=== PATIENT | male | born 1950 | race Caucasian/White ===

== ENCOUNTER 2018-02-18 16:37 | Emergency (ER) | payer BC, MEDICARE ==
[2018-02-18] MEDS ORDERED: SODIUM CHLORIDE 0.9% 1,000 ML IV STA (16:54)
[2018-02-18] MEDS ORDERED: SODIUM CHLORIDE 0.9% 500 ML IV STA (16:54)
[2018-02-18] MEDS ORDERED: NITROGLYCERIN SL TABS 0.4 MG TAB SUBLINGUAL STA ×3 (16:54)
[2018-02-18] MEDS ORDERED: ASPIRIN 81 MG PO STA (16:54)
[2018-02-18] MEDS ORDERED: ONDANSETRON 4 MG/2 ML VIAL IVP STA (16:55)
[2018-02-18] MEDS ORDERED: FAMOTIDINE 20 MG/2 ML VIAL IV STA (16:55)
--- NOTE | 2018-02-18 16:58 | ED ---
General Adult HPI - General Chief complaint: Chest Pain Stated complaint: Vomiting Time Seen by Provider: 02/18/18 16:45 Source: patient, family, RN notes reviewed Mode of arrival: ambulatory Limitations: no limitations - History of Present Illness Initial comments: Patient is a pleasant 67-year-old male presenting to the emergency Department with chest and abdominal discomfort. Symptoms have been occurring for months. Patient was in the hospital recently at [facility] and then transferred to [place]. Patient did have heart catheterization showing 2 areas of concern, one up to 90% blocked. There is also computed tomography scan done showing concern for mesenteric artery ischemia. Patient was in the hospital and [place] for only 3 days and then was discharged. Patient is having continued worsening symptoms. Decreased appetite. Patient is now vomiting. Patient has lost 7 pounds in the past week. Family states further treatment there was limited because there were waiting for a specific machine to help with the procedure as well as the fact that they wanted scopes done to rule out cancer. Patient is not on any blood thinners at this time. - Related Data Home Medications Medication Instructions Recorded Confirmed Aspirin 325 mg PO DAILY 02/18/18 02/18/18 Atorvastatin Calcium [Lipitor] 20 mg PO DAILY 02/18/18 02/18/18 Hydrocodone/Acetaminophen [Sebring 1 tab PO TID 02/18/18 02/18/18 5-325] Hyoscyamine Sulfate [Levsin] 0.125 mg PO DAILY 02/18/18 02/18/18 Lansoprazole [Prevacid] 30 mg PO DAILY 02/18/18 02/18/18 Lisinopril-Hctz 10-12.5 mg 1 tab PO DAILY 02/18/18 02/18/18 [Zestoretic 10-12.5] Metoprolol Tartrate 25 mg PO BID 02/18/18 02/18/18 Nicotine 21Mg/24Hr Patch [Habitrol 1 patch TRANSDERM DAILY 02/18/18 02/18/18 21Mg/24Hr Patch] Allergies Allergy/AdvReac Type Severity Reaction Status Date / Time No Known Allergies Allergy Verified 02/18/18 17:21 Review of Systems ROS Statement: Those systems with pertinent positive or pertinent negative responses have been documented in the HPI. ROS Other: All systems not noted in ROS Statement are negative. 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 History of Any Multi-Drug Resistant Organisms: None Reported Past Surgical History: Orthopedic Surgery Additional Past Surgical History / Comment(s): kerri shoulder,lt foot Past Psychological History: No Psychological Hx Reported Smoking Status: Current every day smoker Past Alcohol Use History: None Reported Past Drug Use History: None Reported General Exam Limitations: no limitations General appearance: alert Head exam: Present: atraumatic Eye exam: Present: normal appearance, PERRL ENT exam: Present: normal oropharynx Neck exam: Present: normal inspection Respiratory exam: Present: normal lung sounds bilaterally. Absent: chest wall tenderness Cardiovascular Exam: Present: regular rate, normal rhythm GI/Abdominal exam: Present: soft, tenderness (Moderate epigastric tenderness with mild guarding), normal bowel sounds. Absent: distended, pulsatile mass Extremities exam: Present: normal inspection. Absent: pedal edema, calf tenderness Neurological exam: Present: alert Psychiatric exam: Present: normal affect, normal mood Skin exam: Present: normal color Course Vital Signs 02/18/18 02/18/18 02/18/18 16:39 17:25 19:18 Temperature 98.3 F 98.8 F Pulse Rate 85 68 69 Respiratory 20 18 18 Rate Blood Pressure 110/76 133/76 116/65 O2 Sat by Pulse 97 Oximetry - Reevaluation(s) Reevaluation #1: 02/18/18 18:15 Cardiology has been paged. We have also attempted to contact [facility] for records. 02/18/18 18:37 Case was discussed with Dr. Linda who recommends admission to ICU and heparin and IV fluids. He is agreeable to vascular consult and recommends Dr. Anthony. 02/18/18 18:50 Case was earlier discussed with Dr. Beauchamp, who will admit for hospital call. Case was discussed with Dr. Anthony who agrees with heparin and will consult. He also recommends surgical consult. 10/10/18 19:31 Case was discussed with Dr. Menjivar who recommends transfer to [facility]. She is concerned the patient may need intestinal loop bypass graft. Case was discussed with patient and family who are agreeable. Case was discussed with Dr. Hodges at [facility], who will accept transfer. EKG Findings - EKG Comments: EKG Findings:: Normal sinus rhythm 68. NE 134. QRS 102. QT 414. QTC 440. Left axis. Incomplete right bundle-branch block. Nonspecific ST-T. Medical Decision Making - Lab Data Result diagrams: 02/18/18 17:05 02/18/18 17:05 Lab Results 02/18/18 02/18/18 02/18/18 Range/Units 17:05 17:05 17:05 WBC 29.2 H (3.8-10.6) k/uL RBC 4.90 (4.30-5.90) m/uL Hgb 15.0 (13.0-17.5) gm/dL Hct 45.1 (39.0-53.0) % MCV 92.1 (80.0-100.0) fL MCH 30.6 (25.0-35.0) pg MCHC 33.2 (31.0-37.0) g/dL RDW 13.4 (11.5-15.5) % Plt Count 309 (150-450) k/uL Neutrophils % 92 % Lymphocytes % 4 % Monocytes % 3 % Eosinophils % 1 % Basophils % 0 % Neutrophils # 26.8 H (1.3-7.7) k/uL Lymphocytes # 1.1 (1.0-4.8) k/uL Monocytes # 0.9 (0-1.0) k/uL Eosinophils # 0.3 (0-0.7) k/uL Basophils # 0.0 (0-0.2) k/uL PT (9.0-12.0) sec INR (<1.2) APTT (22.0-30.0) sec Sodium 137 (137-145) mmol/L Potassium 4.4 (3.5-5.1) mmol/L Chloride 101 (98-107) mmol/L Carbon Dioxide 19 L (22-30) mmol/L Anion Gap 17 mmol/L BUN 44 H (9-20) mg/dL Creatinine 1.70 H (0.66-1.25) mg/dL Est GFR (CKD-EPI)AfAm 47 (>60 ml/min/1.73 sqM) Est GFR (CKD-EPI)NonAf 41 (>60 ml/min/1.73 sqM) Glucose 159 H (74-99) mg/dL Plasma Lactic Acid Dwaine (0.7-2.0) mmol/L Calcium 10.4 H (8.4-10.2) mg/dL Magnesium 2.2 (1.6-2.3) mg/dL Total Bilirubin 0.5 (0.2-1.3) mg/dL AST 174 H (17-59) U/L ALT 45 (21-72) U/L Alkaline Phosphatase 131 H (38-126) U/L Total Creatine Kinase 869 H (55-170) U/L CK-MB (CK-2) 115.0 H (0.0-2.4) ng/mL CK-MB (CK-2) Rel Index 13.2 Troponin I 37.500 H* (0.000-0.034) ng/mL Total Protein 7.3 (6.3-8.2) g/dL Albumin 4.4 (3.5-5.0) g/dL Amylase 76 (30-110) U/L Lipase 61 (23-300) U/L 02/18/18 02/18/18 Range/Units 17:05 17:05 WBC (3.8-10.6) k/uL RBC (4.30-5.90) m/uL Hgb (13.0-17.5) gm/dL Hct (39.0-53.0) % MCV (80.0-100.0) fL MCH (25.0-35.0) pg MCHC (31.0-37.0) g/dL RDW (11.5-15.5) % Plt Count (150-450) k/uL Neutrophils % % Lymphocytes % % Monocytes % % Eosinophils % % Basophils % % Neutrophils # (1.3-7.7) k/uL Lymphocytes # (1.0-4.8) k/uL Monocytes # (0-1.0) k/uL Eosinophils # (0-0.7) k/uL Basophils # (0-0.2) k/uL PT 12.0 (9.0-12.0) sec INR 1.3 H (<1.2) APTT 22.3 (22.0-30.0) sec Sodium (137-145) mmol/L Potassium (3.5-5.1) mmol/L Chloride (98-107) mmol/L Carbon Dioxide (22-30) mmol/L Anion Gap mmol/L BUN (9-20) mg/dL Creatinine (0.66-1.25) mg/dL Est GFR (CKD-EPI)AfAm (>60 ml/min/1.73 sqM) Est GFR (CKD-EPI)NonAf (>60 ml/min/1.73 sqM) Glucose (74-99) mg/dL Plasma Lactic Acid Dwaine 5.1 H* (0.7-2.0) mmol/L Calcium (8.4-10.2) mg/dL Magnesium (1.6-2.3) mg/dL Total Bilirubin (0.2-1.3) mg/dL AST (17-59) U/L ALT (21-72) U/L Alkaline Phosphatase (38-126) U/L Total Creatine Kinase (55-170) U/L CK-MB (CK-2) (0.0-2.4) ng/mL CK-MB (CK-2) Rel Index Troponin I (0.000-0.034) ng/mL Total Protein (6.3-8.2) g/dL Albumin (3.5-5.0) g/dL Amylase (30-110) U/L Lipase (23-300) U/L Critical Care Time Critical Care Time: Yes Total Critical Care Time: 36 Disposition Clinical Impression: Superior mesenteric artery stenosis, NSTEMI (non-ST elevated myocardial infarction) Disposition: HOME SELF-CARE Condition: Serious Is patient prescribed a controlled substance at d/c from ED?: No Referrals: Hari Zambrano MD [Primary Care Provider] - 1-2 days Time of Disposition: 19:33
[2018-02-18 17:23] LABS: Basophils % (A) 0 %; Eosinophils # (A) 0.3 k/uL (0-0.7); Eosinophils % (A) 1 %; HCT 45.1 % (39.0-53.0); Lymphocytes # (A) 1.1 k/uL (1.0-4.8); Lymphocytes % (A) 4 %; MCH 30.6 pg (25.0-35.0); MCHC 33.2 g/dL (31.0-37.0); MCV 92.1 fL (80.0-100.0); Mean Platelet Volume 8.5; Monocytes # (A) 0.9 k/uL (0-1.0); Monocytes % (A) 3 %; Neutrophils # (A) 26.8 k/uL (1.3-7.7); Neutrophils % (A) 92 %; Platelet Count 309 k/uL (150-450); RDW 13.4 % (11.5-15.5); WBC 29.2 k/uL (3.8-10.6)
[2018-02-18 17:30] VITALS: RESP 18
[2018-02-18 17:33] LABS: Albumin 4.4 g/dL (3.5-5.0); Calcium 10.4 mg/dL (8.4-10.2); Magnesium 2.2 mg/dL (1.6-2.3); Potassium 4.4 mmol/L (3.5-5.1); Total Bilirubin 0.5 mg/dL (0.2-1.3); Total Protein 7.3 g/dL (6.3-8.2)
[2018-02-18 17:34] LABS: INR 1.3 (<1.2); Partial Thromboplastin Time 22.3 sec (22.0-30.0)
[2018-02-18 18:01] LABS: Troponin I 37.5 ng/mL (0.000-0.034)
--- NOTE | 2018-02-18 18:01 | XR ---
EXAMINATION TYPE: XR abdomen 1V DATE OF EXAM: 02/18/2018 COMPARISON: NONE HISTORY: Pain TECHNIQUE: Single view FINDINGS: Upright view shows no sign of intestinal obstruction or pneumoperitoneum. Fecal pattern is normal. Abdominal aorta is atheromatous. There are no definite renal calcifications. Lung bases appea r clear. IMPRESSION: Nonacute abdomen.
[2018-02-18] MEDS ORDERED: HEPARIN SODIUM,PORCINE 5,000 UNIT/ML 1 ML VIAL IV ONE (18:14)
[2018-02-18] MEDS ORDERED: HEPARIN SODIUM,PORCINE 5,000 UNIT/ML 1 ML VIAL IV PRN (18:14)
[2018-02-18] MEDS ORDERED: HEPARIN SOD,PORK IN 0.45% NACL 25,000 UNIT in 0.45% NACL 1 500ML.BAG IV SCH (18:15)
--- NOTE | 2018-02-18 18:19 | XR ---
EXAMINATION TYPE: XR chest 2V DATE OF EXAM: 02/18/2018 COMPARISON: NONE HISTORY: Vomiting and chest pain TECHNIQUE: Frontal and lateral views of the chest are obtained. FINDINGS: Heart and mediastinum are normal. Lungs are clear. Diaphragm is normal. Bony thorax appear s normal. There are chest leads. IMPRESSION: Normal chest.
[2018-02-18 20:36] VITALS: BP 108/65; PULSE 74; TEMP 98.5
== END 2018-02-18 20:37 | disposition home or self-care (01) ==
LOC: EC 16:37
DX: I21.4 Non-ST elevation (NSTEMI) myocardial infarction (principal); K55.1 Chronic vascular disorders of intestine; I25.10 Atherosclerotic heart disease of native coronary artery without angina pectoris; F17.200 Nicotine dependence, unspecified, uncomplicated; Z79.82 Long term (current) use of aspirin; Z79.899 Other long term (current) drug therapy
CPT/HCPCS: 36415; 93005; 80053; 82150; 82550; 82553; 83605; 83690; 83735; 84484; 85025; 85610; 85730; 71046; 74018; 99285; 96365; 96375 ×2; 96376; 96361 ×2; J1644 ×2; J2405

== ENCOUNTER → 2018-04-14 | Outpatient (CLI) | payer BC, MEDICARE ==
[2018-04-14 11:48] LABS: Calcium 9.9 mg/dL (8.4-10.2); Magnesium 1.8 mg/dL (1.6-2.3); Potassium 4.4 mmol/L (3.5-5.1); Total Bilirubin 0.4 mg/dL (0.2-1.3); Total Protein 6.7 g/dL (6.3-8.2)
[2018-04-14 11:56] LABS: INR 1.3 (<1.2); Partial Thromboplastin Time 23.1 sec (22.0-30.0); Prothrombin Time 12.4 sec (9.0-12.0)
--- NOTE | 2018-04-14 12:24 | P.PN ---
Progress Note - Text Progress Note Date: 04/14/18 5 meter walk test completed 04/14/18: #1 3.90 sec #2 4.06 sec #3 3.53 sec
[2018-04-14 12:35] LABS: Appearance,Urine Clear (Clear); Bilirubin,Urine Negative (Negative); Blood,Urine Negative (Negative); Color,Urine Light Yellow; Glucose,Urine (UA) Negative (Negative); Ketones,Urine Negative (Negative); Leukocyte Esterase,Urine Negative (Negative); Nitrite,Urine Negative (Negative); PH, Urine 5.5 (5.0-8.0); Protein,Urine Negative (Negative); Specific Gravity,Urine 1.005 (1.001-1.035); Urobilinogen,Urine <2.0 mg/dL (<2.0)
[2018-04-14 13:07] LABS: HCT 41.7 % (39.0-53.0); HGB 13.5 gm/dL (13.0-17.5); MCH 31.9 pg (25.0-35.0); MCHC 32.4 g/dL (31.0-37.0); Mean Platelet Volume 8.6; Platelet Count 196 k/uL (150-450); RBC 4.23 m/uL (4.30-5.90); RDW 14.3 % (11.5-15.5)
[2018-04-14 13:11] LABS: MCV 98.4 fL (80.0-100.0)
--- NOTE | 2018-04-14 15:27 | XR ---
EXAMINATION TYPE: XR chest 2V DATE OF EXAM: 04/14/2018 COMPARISON: Prior chest x-ray 02/18/2018 HISTORY: Preop for coronary artery bypass graft TECHNIQUE: Frontal and lateral views of the chest are obtained. FINDINGS: There is no focal air space opacity, pleural effusion, or pneumothorax seen. The cardiac silhouette size is within normal limits. Prominent lung volume may be indicative of underlying COPD. The osseous structures are intact. IMPRESSION: No acute cardiopulmonary process.
[2018-04-14 19:41] LABS: Hepatitis A Antibody IgM Non-Reactive (Non-Reactive); Hepatitis B Core IgM Non-Reactive (Non-Reactive)
[2018-04-14 20:48] LABS: Hemoglobin A1C 5.3 % (4.0-6.0)
== END | disposition home or self-care (01) ==
LOC: LABPAT 10:24
PROVIDERS: ATTEND Thoracic Surgery (Cardiothoracic Vascular Surgery)
DX: Z01.810 Encounter for preprocedural cardiovascular examination (principal)
CPT/HCPCS: 36415; 71046; 80053; 80061; 80074; 81003; 83036; 83735; 84443; 85027; 85610; 85730; 87070; 87086; 93005

== ENCOUNTER 2018-04-20 05:29 | Inpatient (IN) | payer BC, MEDICARE ==
[~2018-04-20 05:29] MED LIST: ALBUMIN HUMAN 25% 50 ML IV ONE; ALBUMIN HUMAN 5% 500 ML IVPB ONE; ASPIRIN 325 MG TAB PO ONE; ATORVASTATIN 10 MG TAB PO ONE; CALCIUM CHLORIDE 100 MG/ML 10 ML SYRINGE IV ONE; CHLORHEXIDINE GLUCONATE 15 ML CUP MUCOUS MEM ONE; CLEVIDIPINE BUTYRATE 25 MG in EMPTY BAG 1 BAG IV ONE; DEXTROSE 5% IN WATER 1,000 ML with POTASSIUM CHLORIDE 110 MEQ, MAGNESIUM SULFATE 16 MEQ... IV ONE; DEXTROSE 5% IN WATER 1,000 ML with POTASSIUM CHLORIDE 25 MEQ, SODIUM CHLORIDE 2.5MEQ/ML... IRRIGATION ONE; HEPARIN SODIUM 1,000 UN/ML (10ML VL) IV ONE; HEPARIN SODIUM,PORCINE 5,000 UNIT in SODIUM CHLORIDE 0.9% 500 ML 500 ML IV ONE; INSULIN REGULAR 100 UNIT in SODIUM CHLORIDE 0.9% 100 ML IV ONE; LACTATED RINGERS 1,000 ML IV ONE; MAGNESIUM SULFATE MG 500 MG/ML IV ONE; MANNITOL 25% 12.5 GM/50 ML VIAL IV ONE; METOPROLOL TARTRATE 12.5 MG TAB PO ONE; NITROGLYCERIN SL TABS 0.4 MG TAB SUBLINGUAL ONE; NITROGLYCERIN-D5W PMX 25 MG/250 ML BTL IV ONE; NITROGLYCERIN-D5W PMX 50 MG in DEXTROSE/WATER 1 250ML.BAG IV ONE; NOREPINEPHRINE 4 MG in SODIUM CHLORIDE 0.9% 250 ML IV ONE; PAPAVERINE 360 MG in SODIUM CHLORIDE 0.9% 90 ML IV ONE; PHENYLEPHRINE 40 MG in SODIUM CHLORIDE 0.9% 250 ML IV ONE; PHENYLEPHRINE-0.9% NACL SYG 1 MG/10 ML SYRINGE IV ONE; PROPOFOL 1,000 MG/100 ML VIAL IV ONE; PROTAMINE SULFATE 10 MG/ML 25 ML VIAL IV ONE; PROTAMINE SULFATE 250 MG in EMPTY BAG 1 BAG IV ONE; SODIUM BICARB 8.4% 50 ML SYR (1 MEQ/ML) IV ONE; SODIUM CHLORIDE 0.9% 1,000 ML IV ONE; TRANEXAMIC ACID 2,000 MG in SODIUM CHLORIDE 0.9% 180 ML IV ONE; ceFAZolin 2,000 MG in SODIUM CHLORIDE 0.9% 30 ML IVPB ONE
[2018-04-20] MEDS ORDERED: ALBUMIN HUMAN 5% 500 ML VIAL IVPB ONE (08:00)
[2018-04-20] MEDS ORDERED: MAGNESIUM SULFATE 4 MEQ/ML 10ML VIAL ONE (08:00)
[2018-04-20] MEDS ORDERED: PROPOFOL 10 MG/ML 20 ML VIAL IV ONE (08:00)
[2018-04-20] MEDS ORDERED: PHENYLEPHRINE-0.9% NACL SYG 1 MG/10 ML SYRINGE ONE (08:00)
[2018-04-20] MEDS ORDERED: fentaNYL (PF) 50 MCG/ML 50 ML VIAL ONE (08:00)
[2018-04-20] MEDS ORDERED: LIDOCAINE 2% SYG (PF) 100 MG/5 ML ONE (08:00)
[2018-04-20] MEDS ORDERED: VECURONIUM 10 MG VIAL IV ONE (08:00)
[2018-04-20] MEDS ORDERED: PROTAMINE SULFATE 10 MG/ML 25 ML VIAL IV ONE (08:00)
[2018-04-20] MEDS ORDERED: TRANEXAMIC ACID 1,000 MG/10 ML VIAL ONE (08:00)
[2018-04-20] MEDS ORDERED: SODIUM CHLORIDE 0.9% IRRIG 1,000 ML BTL IRRIGATION ONE (08:00)
[2018-04-20] MEDS ORDERED: fentaNYL (PF) 50 MCG/ML 2 ML AMP ONE (08:00)
[2018-04-20] MEDS ORDERED: ELECTROLYTE-R (PH 7.4) 1,000 ML IV.SOLN IV ONE (08:00)
[2018-04-20] MEDS ORDERED: HEPARIN SODIUM,PORCINE 10,000 UNIT/ML 1 ML VIAL ONE (08:00)
[2018-04-20] MEDS ORDERED: ceFAZolin 1,000 MG VIAL ONE (08:00)
[2018-04-20] MEDS ORDERED: MIDAZOLAM 2 MG/2 ML VIAL ONE (08:00)
[2018-04-20] MEDS ORDERED: SODIUM CHLORIDE 0.9% 250 ML BAG ONE (08:00)
[2018-04-20] MEDS ORDERED: EPINEPHrine 10 ML SYRINGE (0.1 MG/ML) ONE (08:00)
[2018-04-20 08:32] LABS: ABG Base Excess -2.1 mmol/L; ABG HCO3 23 mmol/L (21-25); ABG Oxygen Saturation 99.7 % (94-97); ABG PCO2 40 mmHg (35-45); ABG PH 7.37 (7.35-7.45); ABG PO2 372 mmHg (83-108); ABG Sodium Whole Blood 145 mmol/L (135-146); ABG TCO2 24 mmol/L (19-24)
[2018-04-20 10:15] LABS: ABG Base Excess -3.6 mmol/L; ABG HCO3 23 mmol/L (21-25); ABG Oxygen Saturation 99.1 % (94-97); ABG PCO2 45 mmHg (35-45); ABG PH 7.31 (7.35-7.45); ABG PO2 189 mmHg (83-108); ABG Potassium Whole Blood 4.5 mmol/L (3.4-4.5); ABG Sodium Whole Blood 144 mmol/L (135-146); ABG TCO2 24 mmol/L (19-24)
[2018-04-20 11:03] LABS: ABG Base Excess -0.1 mmol/L; ABG HCO3 24 mmol/L (21-25); ABG PCO2 37 mmHg (35-45); ABG PH 7.43 (7.35-7.45); ABG Potassium Whole Blood 5.2 mmol/L (3.4-4.5); ABG Sodium Whole Blood 139 mmol/L (135-146); ABG TCO2 25 mmol/L (19-24)
[2018-04-20] MEDS ORDERED: THROMBIN (BOVINE) 5,000 UNIT VIAL MISCELLANE ONE ×2 (11:28)
[2018-04-20] MEDS ORDERED: GELATIN SPONGE,ABSORB (LARGE) 1 EACH SPONGE MISCELLANE ONE (11:30)
[2018-04-20 11:35] LABS: ABG HCO3 23 mmol/L (21-25); ABG Oxygen Saturation 99.8 % (94-97); ABG PCO2 38 mmHg (35-45); ABG PH 7.39 (7.35-7.45); ABG PO2 397 mmHg (83-108); ABG Potassium Whole Blood 5.2 mmol/L (3.4-4.5); ABG Sodium Whole Blood 140 mmol/L (135-146); ABG TCO2 24 mmol/L (19-24)
[2018-04-20 12:07] LABS: ABG HCO3 24 mmol/L (21-25); ABG Oxygen Saturation 99.7 % (94-97); ABG PCO2 40 mmHg (35-45); ABG PH 7.38 (7.35-7.45); ABG PO2 404 mmHg (83-108); ABG Potassium Whole Blood 4.3 mmol/L (3.4-4.5); ABG Sodium Whole Blood 143 mmol/L (135-146); ABG TCO2 25 mmol/L (19-24)
[2018-04-20] MEDS ORDERED: IPRATROPIUM-ALBUTEROL 3 ML NEB INHALATION PRN (13:37)
[2018-04-20] MEDS ORDERED: ALBUMIN HUMAN 5% 250 ML in EMPTY BAG 1 BAG IVPB PRN (13:37)
[2018-04-20] MEDS ORDERED: BENZOCAINE/MENTHOL LOZENG 1 EACH LOZENGE MUCOUS MEM PRN (13:37)
[2018-04-20] MEDS ORDERED: METOCLOPRAMIDE 5 MG/ML 2 ML VIAL IVP PRN (13:37)
[2018-04-20] MEDS ORDERED: AMIODARONE 450 MG in DEXTROSE 5% IN WATER 250 ML IV PRN ×2 (13:37)
[2018-04-20] MEDS ORDERED: INSULIN REGULAR 100 UNIT in SODIUM CHLORIDE 0.9% 100 ML IV SCH (13:37)
[2018-04-20] MEDS ORDERED: Phosphorus Replacement Protoco 1 EACH MISC MISCELLANE PRN (13:37)
[2018-04-20] MEDS ORDERED: Magnesium Replacement Protocol 1 EACH MISC MISCELLANE PRN (13:37)
[2018-04-20] MEDS ORDERED: CALCIUM CHLORIDE 1,000 MG in SODIUM CHLORIDE 0.9% 100 ML IV PRN (13:37)
[2018-04-20] MEDS ORDERED: PROPOFOL 1,000 MG in EMPTY BAG 1 BAG IV SCH (13:37)
[2018-04-20] MEDS ORDERED: NITROGLYCERIN-D5W PMX 50 MG in DEXTROSE/WATER 1 250ML.BAG IV SCH (13:37)
[2018-04-20] MEDS ORDERED: Potassium Replacement Protocol 1 EACH MISC MISCELLANE PRN (13:37)
[2018-04-20] MEDS ORDERED: ONDANSETRON 4 MG/2 ML VIAL IVP PRN (13:37)
[2018-04-20] MEDS ORDERED: DEXTROSE 5% IN WATER 100 ML with AMIODARONE 150 MG IV PRN (13:37)
[2018-04-20 13:53] LABS: ABG Potassium Whole Blood 4.2 mmol/L (3.4-4.5)
[2018-04-20 13:54] LABS: ABG PO2 >420 mmHg (83-108)
[2018-04-20] MEDS: LACTATED RINGERS 1,000 ML IV SCH (14:00)
[2018-04-20] MEDS: CLEVIDIPINE BUTYRATE 25 MG in EMPTY BAG 1 BAG IV SCH ×2 (14:15→21:46)
[2018-04-20 14:19] LABS: Glucose,Whole Blood 76 mg/dL (75-99)
[2018-04-20 14:28] LABS: Basophils % (A) 0 %; Eosinophils # (A) 0.1 k/uL (0-0.7); Eosinophils % (A) 1 %; Lymphocytes # (A) 1.1 k/uL (1.0-4.8); Lymphocytes % (A) 14 %; MCH 32.3 pg (25.0-35.0); MCHC 32.9 g/dL (31.0-37.0); MCV 98.1 fL (80.0-100.0); Mean Platelet Volume 8.8; Monocytes # (A) 0.4 k/uL (0-1.0); Monocytes % (A) 5 %; Neutrophils # (A) 6.3 k/uL (1.3-7.7); Neutrophils % (A) 79 %; RBC 2.55 m/uL (4.30-5.90); RDW 14.5 % (11.5-15.5)
[2018-04-20 14:30] LABS: HGB 8.2 gm/dL (13.0-17.5)
[2018-04-20 14:35] LABS: INR 1.4 (<1.2); Partial Thromboplastin Time 32.5 sec (22.0-30.0); Prothrombin Time 14.6 sec (9.0-12.0)
--- NOTE | 2018-04-20 14:36 | XR ---
EXAMINATION TYPE: XR chest 1V portable DATE OF EXAM: 04/20/2018 COMPARISON: 04/14/2018 INDICATION: Postop cardiac surgery TECHNIQUE: Single frontal view of the chest is obtained. FINDINGS: The heart size is normal. The pulmonary vasculature is upper the upper limits of normal.. Some minimal subsegmental atelectasis may be within the right lung base. Some streak atelectasis may be at the left lung base. Bilateral chest tubes are present. Some minimal right pneumothorax at the apex may be present. [place]-Nick catheter is present with the tip in the region of the main pulmonary artery. Endotracheal t ube tip is above the john. Nasogastric tube transverses the thorax with tip in left upper quadrant of the abdomen. Epicardial leads appear to be present. IMPRESSION: 1. Suggestion of mild subsegmental atelectasis bilateral lung bases. 2. Lines and catheters discussed above. 3. Minimal medial right apical pneumothorax may be present. 4. Prominence of the pulmonary vascular markings is approaching volume overload
[2018-04-20 14:39] LABS: Ionized Calcium 5.4 mg/dL (4.5-5.3)
[2018-04-20 14:41] LABS: ALT 27 U/L (21-72); AST 34 U/L (17-59); Albumin 3.2 g/dL (3.5-5.0); Alkaline Phosphatase 67 U/L (38-126); Anion Gap 5 mmol/L; Blood Urea Nitrogen 14 mg/dL (9-20); Calcium 7.4 mg/dL (8.4-10.2); Carbon Dioxide 25 mmol/L (22-30); Chloride 113 mmol/L (98-107); Glucose 67 mg/dL (74-99); Magnesium 2.9 mg/dL (1.6-2.3); Potassium 4.5 mmol/L (3.5-5.1); Sodium 143 mmol/L (137-145); Total Bilirubin 0.3 mg/dL (0.2-1.3); Total Protein 4.8 g/dL (6.3-8.2)
[2018-04-20 14:43] LABS: ABG Base Excess -1.9 mmol/L; ABG HCO3 25 mmol/L (21-25); ABG Oxygen Saturation 99.8 % (94-97); ABG PCO2 56 mmHg (35-45); ABG PH 7.26 (7.35-7.45); ABG PO2 296 mmHg (83-108); ABG TCO2 27 mmol/L (19-24)
[2018-04-20 14:50] LABS: Platelet Count 72 k/uL (150-450)
[2018-04-20 14:51] LABS: Anisocytosis (M) Present; Poikilocytosis (M) Present
[2018-04-20 15:16] LABS: Glucose,Whole Blood 98 mg/dL (75-99)
--- NOTE | 2018-04-20 15:33 | P.CNPUL ---
History of Present Illness Consult date: 04/20/18 Requesting physician: Wesley Olmos Reason for consult: other (Status post CABG) Chief complaint: Status post CABG History of present illness: This is a 67-year-old white male presented back on 02/18/20182 hour ER with abdominal and chest discomfort. Apparently the patient has been complaining of these symptoms for [place] of time, and prior to this last ER evaluation, patient was seen in [facility] and transferred to [facility] and cardiac catheterization was done, and it showed significant coronary artery disease, there was also evidence of mesenteric artery ischemia. Patient was at [facility] for almost a week, and no significant intervention was done. On 2017, presented to our ER, and he was having mostly abdominal pain, decreased appetite, 7 pound weight loss, and arrangements were made for the patient to be transferred to [facility]. Patient underwent stenting of the superior mesenteric artery at [facility], and he was eventually seen by cardiothoracic surgery and while at [facility], and his previous cardiac catheterization was reviewed, patient was advised elective myocardial revascularization. Today the patient underwent three-vessel bypass surgery, postoperatively he was on mechanical ventilation, and this consult was initiated. Presently he is on tidal volume of 500, assist control rate of 14, FiO2 of 50%, and PEEP of 5. Chest x-ray was reviewed, ABG was reviewed, and I discussed his condition with his at bedside. Patient is presently sedated , on mechanical ventilation. Review of Systems ROS unobtainable: due to endotracheal tube Past Medical History Past Medical History: Coronary Artery Disease (CAD), Cancer, Hyperlipidemia, Hypertension, Skin Disorder Additional Past Medical History / Comment(s): hx. of mesenteric artery stenosis , hx. basal cell skin cancer nose several years ago-current small open area side of nose where was removed History of Any Multi-Drug Resistant Organisms: None Reported Past Surgical History: Heart Catheterization, Orthopedic Surgery Additional Past Surgical History / Comment(s): kerri shoulder,lt foot surgery, mesenteric artery stent placed 2017 @[facility] Past Anesthesia/Blood Transfusion Reactions: No Reported Reaction Smoking Status: Current every day smoker Medications and Allergies Home Medications Medication Instructions Recorded Confirmed Type Atorvastatin Calcium [Lipitor] 40 mg PO DAILY 02/18/18 04/20/18 History Metoprolol Tartrate 25 mg PO BID 02/18/18 04/20/18 History Clopidogrel [Plavix] 75 mg PO DAILY 04/14/18 04/20/18 History Multivitamin [Men's Multi-Vitamin] 1 tab PO DAILY 04/14/18 04/20/18 History Nitroglycerin Sl Tabs [Nitrostat] 0.4 mg SUBLINGUAL Q5M PRN 04/14/18 04/20/18 History Ondansetron [Zofran] 4 mg PO Q8HR PRN 04/14/18 04/20/18 History Pantoprazole Sodium [Protonix] 40 mg PO DAILY 04/14/18 04/20/18 History Mupirocin 2% Oint [Bactroban 2% 1 applic NASAL BID 04/17/18 04/20/18 History Oint] Aspirin [Adult Low Dose Aspirin EC] 324 mg PO DAILY 04/20/18 04/20/18 History Allergies Allergy/AdvReac Type Severity Reaction Status Date / Time No Known Allergies Allergy Verified 04/20/18 14:28 Physical Exam Vitals: Vital Signs Temp Pulse Resp BP BP Pulse Ox 04/20/18 06:01 97.5 F L 49 L 18 137/78 132/76 97 Intake and Output 04/20/18 04/20/18 04/20/18 06:59 14:59 22:59 Intake Total 2 Output Total 1500 Balance -1498 Intake: IV 2 Output: Urine 500 Estimated Blood Loss 1000 Physical Exam: Revealed a 67-year-old white male in no distress. On mechanical ventilation, endotracheal tube is intact. Head: Atraumatic, normocephalic. HEENT: PERRLA, EOMI, [Neck is supple.] [No neck masses.] [No thyromegaly.] [No JVD.] Moist mucous membranes. Chest: [Clear throughout, no crackles, no rhonchi, no wheezes.] Cardiac Exam: [Normal S1 and S2, no S3 gallop, no murmur.] Abdomen: [Soft, nontender, no megaly, no rebound, no guarding, normal bowel sounds.] Extremities: [No clubbing, no edema, no cyanosis.] Neurological Exam: [Cannot be assessed, patient is sedated. Psychiatric: Cannot be assessed. Skin: No rashes. Results - Laboratory Findings CBC and BMP: 04/20/18 13:58 04/20/18 13:58 ABG ABG pH 7.26 (7.35-7.45) L 04/20/18 14:40 ABG pCO2 56 mmHg (35-45) H 04/20/18 14:40 ABG pO2 296 mmHg (83-108) H 04/20/18 14:40 ABG O2 Saturation 99.8 % (94-97) H 04/20/18 14:40 PT/INR, D-dimer PT 14.6 sec (9.0-12.0) H 04/20/18 13:58 INR 1.4 (<1.2) H 04/20/18 13:58 Abnormal lab findings: Abnormal Labs 04/14/18 04/20/18 04/20/18 10:26 08:30 10:14 RBC Hgb Hct Plt Count PT INR APTT ABG pH 7.31 L ABG pCO2 ABG pO2 372 H 189 H ABG Total CO2 ABG O2 Saturation 99.7 H 99.1 H ABG Hematocrit 33 L ABG Potassium ABG Ionized Calcium ABG Glucose 137 H ABG Lactic Acid Hemoglobin 11.2 L 10.7 L Chloride Glucose Calcium Ionized Calcium Naima Magnesium Total Protein Albumin Arterial Blood Potassium Arterial Blood Glucose 137 H Crossmatch See Detail 04/20/18 04/20/18 04/20/18 11:02 11:33 12:05 RBC Hgb Hct Plt Count PT INR APTT ABG pH ABG pCO2 ABG pO2 >420 H 397 H 404 H ABG Total CO2 25 H 25 H ABG O2 Saturation 100.0 H 99.8 H 99.7 H ABG Hematocrit 22 L 22 L 22 L ABG Potassium 5.2 H 5.2 H ABG Ionized Calcium 3.8 L 4.0 L 4.1 L ABG Glucose 214 H 232 H 176 H ABG Lactic Acid 2.1 H 3.0 H* 3.7 H* Hemoglobin 7.0 L* 7.2 L 7.3 L Chloride Glucose Calcium Ionized Calcium Naima Magnesium Total Protein Albumin Arterial Blood Potassium 5.2 H 5.2 H Arterial Blood Glucose 214 H 232 H 176 H Crossmatch 04/20/18 04/20/18 04/20/18 13:58 13:58 13:58 RBC 2.55 L Hgb 8.2 L D Hct 25.0 L Plt Count 72 L D PT 14.6 H INR 1.4 H APTT 32.5 H ABG pH ABG pCO2 ABG pO2 ABG Total CO2 ABG O2 Saturation ABG Hematocrit ABG Potassium ABG Ionized Calcium ABG Glucose ABG Lactic Acid Hemoglobin Chloride 113 H Glucose 67 L Calcium 7.4 L Ionized Calcium Naima 5.4 H Magnesium 2.9 H Total Protein 4.8 L Albumin 3.2 L Arterial Blood Potassium Arterial Blood Glucose Crossmatch 04/20/18 14:40 RBC Hgb Hct Plt Count PT INR APTT ABG pH 7.26 L ABG pCO2 56 H ABG pO2 296 H ABG Total CO2 27 H ABG O2 Saturation 99.8 H ABG Hematocrit ABG Potassium ABG Ionized Calcium ABG Glucose ABG Lactic Acid Hemoglobin Chloride Glucose Calcium Ionized Calcium Naima Magnesium Total Protein Albumin Arterial Blood Potassium Arterial Blood Glucose Crossmatch - Diagnostic Findings Chest x-ray: image reviewed (Chest x-ray showed minimal subsegmental atelectasis at the bases, prominent pulmonary vasculature otherwise unremarkable.) Assessment and Plan Assessment: Impression: 1 status post CABG, three-vessel bypass surgery, postoperative day #0. 2 postoperative atelectasis, expected after surgery. 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 5 triple-vessel coronary artery disease. Recommendation: Discussed and updated his about his condition, adjusted his ventilator settings, plan to have a repeat ABG later this evening, will likely wean and extubate later this evening, all depending on his overall clinical progress. We'll continue to follow. Time with Patient: Greater than 30
[2018-04-20] MEDS: ceFAZolin IN SWFI 2 GM/20 ML SYRINGE IVP SCH ×2 (15:48→23:57)
[2018-04-20 15:59] LABS: Glucose,Whole Blood 142 mg/dL (75-99)
[2018-04-20] MEDS ORDERED: IPRATROPIUM-ALBUTEROL 3 ML NEB INHALATION SCH (16:00)
--- NOTE | 2018-04-20 16:03 | OP ---
OPERATIVE REPORT DATE OF THE OPERATION: 04/20/2018. ATTENDING SURGEON: Dr. Wesley Olmos. PREOPERATIVE DIAGNOSES: 1. Unstable angina. 2. Three vessel coronary artery disease. POSTOPERATIVE DIAGNOSES: 1. Unstable angina. 2. Three vessel coronary artery disease. PROCEDURE PERFORMED: 1. Coronary bypass grafting x3 with left internal mammary to left anterior descending artery. 2. Reverse saphenous vein graft off the aorta to the diagonal artery, the high diagonal artery and the posterior ventricular branch of the right coronary artery with endarterectomy of the posterior lateral branch of the RCA with vein patch angioplasty. 3. Clip ligation of the left atrial appendage with a #35 mm AtriClip. 4. Intraoperative GREGORY. ANESTHESIA: General anesthesia. BLOOD LOSS: 500 mL. SUMMARY: The patient was brought to the operating room, placed in the supine position. After administration of general tracheal anesthetic, placement of a [place]-Nick catheter, arterial line adequate IV access, Nagel catheter, patient carefully prepped and draped in normal sterile fashion using Betadine paint and sterile towels. Greater saphenous vein was harvested from the left lower extremity via endovascular vein harvesting technique. All branches were doubly tied and divided and the incisions closed in 2 layers. A midline incision in the chest made, sternum divided. Pericardium was opened. Heart size was relatively normal caliber. The aorta was a little bit thickened but soft. Left pleural space is opened. Left internal mammary artery harvested as a pedicle from the xiphoid to the left subclavian vein. It was of 2 mm quality with excellent flow. The patient was heparinized. ACT greater than 480. The aorta and vena cava were cannulated. Antegrade and retrograde cardioplegic catheters positioned in the ascending aorta and the coronary sinus. Upon giving the instructions to go on bypass, patient was reportedly placed on bypass. However, within 30 seconds they reported that they could not get forward flow, was the arterial line kinked. There were no kinks. The arterial line was tested when it was inserted for good pulsations and means that match and a test dose was given. However, at this point, there was no forward flow going through, so after a period of approximately 30 seconds of hypotension, the patient had not been clamped. The volume was placed back in the heart and the patient started to eject, a little bit of epi was given at the field by anesthesia and the patient's pressure was back to completely normal levels. At this point, two perfusionists performed the diagnostics of everything, changed out the pump and the circuit started to work. At this point, the patient was then placed back on bypass with no difficulty. Cross-clamp was placed. The heart arrested with antegrade followed by 500 mL retrograde cardioplegia. Retrograde cardioplegia was delivered, 3-500 mL at the end of each 20 minute interval. Distal anastomoses were constructed. Reverse saphenous vein graft anastomosis to the posterior lateral branch of the right coronary artery was constructed using a 7-0 Prolene running suture. Caliber of this vessel was 1.5 mm. In doing this there was a large plaque right at the bifurcation of the PLVB and the RCA. The plaque was carefully removed and sent to pathology and then a vein patch angioplasty was then performed using a 7-0 Prolene running suture. Next, saphenous vein anastomosis to the high diagonal was constructed in a similar fashion as the 1.75 mm muscle. Next, the left internal mammary was beveled. Distal anastomosis mid left anterior descending artery constructed using 8-0 Prolene running suture. Caliber of this vessel was 1.75 mm to 2 mm. Under single cross-clamp, 2 proximal anastomosis were constructed on the ascending artery using 6-0 Prolene running suture. 35 mm AtriClip was placed at the base of the left atrial appendage officially obliterating the left atrial appendage. The patient was placed head down. The aortic root vented 1 L of warm blood cardioplegia. Cross-clamp was removed. Once beating normal sinus rhythm, patient was brought off bypass, came off bypass uneventfully with good hemodynamics. Protamine delivered. Patient decannulated. Ventricular pacing wires were placed. Mediastinal left pleural chest tubes were placed. At this point, the sternum was closed with 7 #6 sternal wires. Skin and subcutaneous tissue, fascia closed in 3 layers. No complications. The patient tolerated the procedure well, was taken to the cardiovascular intensive care unit in stable condition. MMODL / IJN: [id number] /
[2018-04-20 16:53] LABS: ABG HCO3 25 mmol/L (21-25); ABG PCO2 49 mmHg (35-45); ABG PH 7.32 (7.35-7.45); ABG PO2 81 mmHg (83-108); ABG TCO2 27 mmol/L (19-24)
[2018-04-20 17:08] LABS: Glucose,Whole Blood 140 mg/dL (75-99)
[2018-04-20] MEDS: ACETAMINOPHEN IV (For NPO) 1,000 MG in EMPTY BAG 1 BAG IVPB SCH ×2 (17:37→23:57)
[2018-04-20 18:05] LABS: Glucose,Whole Blood 127 mg/dL (75-99)
[2018-04-20 18:05] LABS: ABG Base Excess 0.1 mmol/L; ABG HCO3 26 mmol/L (21-25); ABG Oxygen Saturation 98.9 % (94-97); ABG PCO2 47 mmHg (35-45); ABG PH 7.35 (7.35-7.45); ABG PO2 119 mmHg (83-108); ABG TCO2 27 mmol/L (19-24)
[2018-04-20 18:27] LABS: Basophils % (A) 0 %; Eosinophils % (A) 0 %; HCT 27.6 % (39.0-53.0); HGB 8.9 gm/dL (13.0-17.5); Lymphocytes % (A) 8 %; MCH 31.9 pg (25.0-35.0); MCHC 32.4 g/dL (31.0-37.0); MCV 98.6 fL (80.0-100.0); Mean Platelet Volume 8.2; Monocytes # (A) 0.8 k/uL (0-1.0); Monocytes % (A) 6 %; Neutrophils # (A) 11.7 k/uL (1.3-7.7); Neutrophils % (A) 86 %; RDW 14.6 % (11.5-15.5); WBC 13.7 k/uL (3.8-10.6)
[2018-04-20 18:28] LABS: Platelet Count 112 k/uL (150-450)
[2018-04-20 19:47] LABS: Glucose,Whole Blood 119 mg/dL (75-99)
[2018-04-20] MEDS: IPRATROPIUM-ALBUTEROL 3 ML NEB INHALATION SCH ×2 (20:29→21:09)
[2018-04-20 20:32] LABS: Glucose,Whole Blood 131 mg/dL (75-99)
[2018-04-20] MEDS ORDERED: MUPIROCIN 2% OINT 22 GM TUBE NASAL SCH (21:00)
[2018-04-20 21:02] LABS: Glucose,Whole Blood 138 mg/dL (75-99)
[2018-04-20] MEDS: HEPARIN SODIUM,PORCINE 5,000 UNIT/ML 1 ML VIAL SQ SCH ×2 (21:10→23:57)
[2018-04-20 21:12] LABS: Basophils % (A) 0 %; Eosinophils % (A) 0 %; HCT 29.1 % (39.0-53.0); HGB 9.2 gm/dL (13.0-17.5); Lymphocytes # (A) 0.9 k/uL (1.0-4.8); Lymphocytes % (A) 6 %; MCH 31.3 pg (25.0-35.0); MCHC 31.7 g/dL (31.0-37.0); MCV 98.8 fL (80.0-100.0); Mean Platelet Volume 8.3; Monocytes # (A) 0.7 k/uL (0-1.0); Monocytes % (A) 5 %; Neutrophils # (A) 13.7 k/uL (1.3-7.7); Neutrophils % (A) 89 %; Platelet Count 119 k/uL (150-450); RBC 2.95 m/uL (4.30-5.90); RDW 14.4 % (11.5-15.5); WBC 15.5 k/uL (3.8-10.6)
[2018-04-20] MEDS: MUPIROCIN 2% OINT 22 GM TUBE NASAL SCH (21:15)
[2018-04-20 22:30] LABS: Glucose,Whole Blood 149 mg/dL (75-99)
[2018-04-20 23:11] LABS: Glucose,Whole Blood 150 mg/dL (75-99)
[2018-04-20 23:58] LABS: Glucose,Whole Blood 135 mg/dL (75-99)
[2018-04-21 01:32] LABS: Glucose,Whole Blood 137 mg/dL (75-99)
[2018-04-21 02:22] LABS: Glucose,Whole Blood 138 mg/dL (75-99)
[2018-04-21 03:42] LABS: Glucose,Whole Blood 130 mg/dL (75-99)
[2018-04-21 04:33] LABS: Glucose,Whole Blood 131 mg/dL (75-99)
[2018-04-21 05:03] LABS: Glucose,Whole Blood 142 mg/dL (75-99)
[2018-04-21 05:41] LABS: Basophils % (A) 0 %; Eosinophils # (A) 0.1 k/uL (0-0.7); Eosinophils % (A) 0 %; HCT 28.4 % (39.0-53.0); Lymphocytes # (A) 1.3 k/uL (1.0-4.8); Lymphocytes % (A) 8 %; MCH 31.1 pg (25.0-35.0); MCHC 31.7 g/dL (31.0-37.0); MCV 98.2 fL (80.0-100.0); Mean Platelet Volume 9.3; Monocytes # (A) 0.8 k/uL (0-1.0); Monocytes % (A) 5 %; Neutrophils # (A) 15.2 k/uL (1.3-7.7); Neutrophils % (A) 87 %; Platelet Count 104 k/uL (150-450); RBC 2.89 m/uL (4.30-5.90); RDW 14.5 % (11.5-15.5); WBC 17.4 k/uL (3.8-10.6)
[2018-04-21 05:49] LABS: INR 1.3 (<1.2); Partial Thromboplastin Time 25.5 sec (22.0-30.0); Prothrombin Time 12.9 sec (9.0-12.0)
[2018-04-21 06:12] LABS: ALT 38 U/L (21-72); AST 68 U/L (17-59); Albumin 3.7 g/dL (3.5-5.0); Alkaline Phosphatase 65 U/L (38-126); Anion Gap 7 mmol/L; Blood Urea Nitrogen 17 mg/dL (9-20); Calcium 8.6 mg/dL (8.4-10.2); Carbon Dioxide 23 mmol/L (22-30); Chloride 111 mmol/L (98-107); Glucose 122 mg/dL (74-99); Magnesium 2.3 mg/dL (1.6-2.3); Potassium 4.3 mmol/L (3.5-5.1); Sodium 141 mmol/L (137-145); Total Bilirubin 0.4 mg/dL (0.2-1.3); Total Protein 5.5 g/dL (6.3-8.2)
[2018-04-21] MEDS: ACETAMINOPHEN IV (For NPO) 1,000 MG in EMPTY BAG 1 BAG IVPB SCH ×3 (06:32→17:40)
--- NOTE | 2018-04-21 06:38 | XR ---
EXAMINATION TYPE: XR chest 1V portable DATE OF EXAM: 04/21/2018 CLINICAL HISTORY: Difficulty breathing progress study. Post open cardiac surgery. TECHNIQUE: Single AP portable upright view of the chest is obtained. COMPARISON: Chest x-ray from one day earlier and older studies. FINDINGS: There is interval extubation with removal of endotracheal and orogastric tubes. There are persistent bilateral chest tubes and mediastinal drainage catheter. There is persistent right interna l jugular [place]-Nick catheter. Overlying sternal wires and mediastinal clips as well as cardiac closur e device over superior left heart border are all redemonstrated. There is persistent bibasilar opacity. There is mild interstitial edema. Cardiac silhouette size is s table and upper limits of normal. No sizable pneumothorax is seen bilaterally. Osseous structures are intact. IMPRESSION: Interval extubation. There is stable mild interstitial edema and patchy bibasilar acute a telectasis and/or infiltrate noted.
[2018-04-21 06:56] LABS: Glucose,Whole Blood 113 mg/dL (75-99)
[2018-04-21] MEDS: IPRATROPIUM-ALBUTEROL 3 ML NEB INHALATION SCH ×4 (08:02→19:42)
[2018-04-21 08:38] LABS: Glucose,Whole Blood 163 mg/dL (75-99)
[2018-04-21] MEDS ORDERED: PANTOPRAZOLE 40 MG/10 ML VIAL IVP SCH (09:00)
[2018-04-21] MEDS: ceFAZolin IN SWFI 2 GM/20 ML SYRINGE IVP SCH (09:12)
[2018-04-21] MEDS: HEPARIN SODIUM,PORCINE 5,000 UNIT/ML 1 ML VIAL SQ SCH ×2 (09:12→16:42)
[2018-04-21] MEDS: ASPIRIN 325 MG TAB PO SCH (09:13)
[2018-04-21] MEDS: METOPROLOL TARTRATE 12.5 MG TAB PO SCH ×2 (09:13→21:20)
[2018-04-21] MEDS: CLOPIDOGREL 75 MG TAB PO SCH (09:13)
[2018-04-21] MEDS: MUPIROCIN 2% OINT 22 GM TUBE NASAL SCH ×2 (09:13→21:20)
[2018-04-21] MEDS: ATORVASTATIN 40 MG TAB PO SCH (09:13)
[2018-04-21] MEDS: KETOROLAC 30 MG/ML 1 ML VIAL IVP SCH ×3 (09:15→21:20)
--- NOTE | 2018-04-21 09:19 | CONS ---
CONSULTATION This is a 67-year-old gentleman who underwent aortocoronary bypass surgery yesterday. This patient is new to our practice. We have not seen him before. Apparently, he has history of CAD and underwent evaluation in [place] and transfer to [place] and where a cardiac catheterization was done and it revealed significant triple-vessel disease and he also has mesenteric artery ischemia. He came into [facility] on 02/18/2018 with abdominal pain, decreased appetite, and he was transferred to [facility] where he underwent stenting of the superior mesenteric artery. At that time, he was seen by cardiac surgery in [facility] and after reviewing his cardiac cath films because of significant triple-vessel disease, he was advised aortocoronary bypass surgery. I do not know the status of his LV function. He does seem to have a history of some underlying COPD; however. Against this background, he went on to have aortocoronary bypass surgery yesterday with a PRO to LAD and vein graft to the diagonal and also endarterectomy and grafting of the PLV branch of RCA. I do not have the cath information in terms of the extent of disease nor do I have knowledge of LV function. Patient had surgery yesterday by Dr. Olmos and he is doing remarkably well today, extubated and is on a very small dose of Cleviprex which is also going to be discontinued soon. He is resting comfortably without symptoms of any chest pain. PAST MEDICAL HISTORY: It appears that the patient has history of smoking, COPD, hypertension, hyperlipidemia, and also had a mesenteric ischemia, status post stenting of his superior mesenteric artery. MEDICATIONS: At home included Lipitor, metoprolol, Plavix and aspirin. ALLERGIES: None. PHYSICAL EXAMINATION: His blood pressure is 110/70, pulse rate is 60, sinus. HEENT: Unremarkable. Fundus was not examined by me. Neck is supple. There is no JVD, S1-S2 heard normally. Short systolic murmur noted. Lungs reveal fairly decent air entry. Abdomen is soft. Lower extremities reveal diminished pulses. IMPRESSION: 1. Status post aortocoronary bypass surgery, doing very well postoperative day #1. 2. History of coronary artery disease. 3. History of bowel ischemia with stenting of mesenteric artery performed at [facility] a few weeks ago. 4. History of smoking and chronic obstructive pulmonary disease. RECOMMENDATIONS: I am recommending that from a cardiac standpoint, will continue current medical regimen which include beta blockers and statin agents. We will continue incentive spirometry and gradual increase in activity. We will continue to follow him. Thank you very much for the consult. AMAN / EZIO: [id number] /
[2018-04-21 10:49] VITALS: BMI 25.2
--- NOTE | 2018-04-21 11:24 | P.CONS ---
History of Present Illness - Reason for Consult Consult date: 04/21/18 Medical management post CABG Requesting physician: Wesley Olmos - Chief Complaint Elective CABG - History of Present Illness 67-year-old male with past medical history of CAD, basal cell skin cancer, hypertension, hyperlipidemia and superior mesenteric artery stenosis presents to [facility] for elective CABG. Patient was initially evaluated on 02/18/2018 for abdominal discomfort and chest pain. He had a known history of superior mesenteric artery stenosis (seen on computed tomography scan) and severe coronary artery disease (seen on cardiac catheterization at [place]) and was transferred to [facility] for further intervention. Patient underwent stenting of the superior mesenteric artery and advised that he would need elective CABG. Patient underwent CABG on 04/20/2018. Left internal mammary to left anterior descending artery. Reverse saphenous vein graft to the diagonal artery, the high diagonal artery and the posterior ventricular branch of the right coronary artery with endarterectomy of the posterior lateral branch of the RCA. He was ventilated post-surgery with a tidal volume of 500, rate of 14, FiO2 of 50% and PEEP of 5. He was extubated yesterday evening successfully and placed on 5 L nasal cannula. Patient was seen and examined this morning no acute events overnight. Patient reports no complaints at this time. States his he has mild chest discomfort with deep inhalation and with movement. He denies any shortness of breath or palpitations. He is currently receiving a breathing treatment. His is at bedside. Patient endorses a 50 year half pack a day smoking history. He denies any alcohol use. CBC shows a leukocytosis of 17.4. Hemoglobin is slowly trending down from 9.2- 9.0 this morning. Platelet count is also trending down from 119-104 this morning. He has an INR 1.3. CMP is mostly unremarkable except for a chloride of 111, glucose of 122 and AST of 68. Chest x-ray this morning shows stable mild interstitial edema and patchy bibasilar acute atelectasis/infiltrate. Review of Systems All systems: negative Past Medical History Past Medical History: Coronary Artery Disease (CAD), Cancer, Hyperlipidemia, Hypertension, Skin Disorder Additional Past Medical History / Comment(s): hx. of mesenteric artery stenosis , hx. basal cell skin cancer nose several years ago-current small open area side of nose where was removed History of Any Multi-Drug Resistant Organisms: None Reported Past Surgical History: Heart Catheterization, Orthopedic Surgery Additional Past Surgical History / Comment(s): kerri shoulder,lt foot surgery, mesenteric artery stent placed 2017 @[facility] Past Anesthesia/Blood Transfusion Reactions: No Reported Reaction Smoking Status: Current every day smoker Medications and Allergies Home Medications Medication Instructions Recorded Confirmed Type Atorvastatin Calcium [Lipitor] 40 mg PO DAILY 02/18/18 04/20/18 History Metoprolol Tartrate 25 mg PO BID 02/18/18 04/20/18 History Clopidogrel [Plavix] 75 mg PO DAILY 04/14/18 04/20/18 History Multivitamin [Men's Multi-Vitamin] 1 tab PO DAILY 04/14/18 04/20/18 History Nitroglycerin Sl Tabs [Nitrostat] 0.4 mg SUBLINGUAL Q5M PRN 04/14/18 04/20/18 History Ondansetron [Zofran] 4 mg PO Q8HR PRN 04/14/18 04/20/18 History Pantoprazole Sodium [Protonix] 40 mg PO DAILY 04/14/18 04/20/18 History Mupirocin 2% Oint [Bactroban 2% 1 applic NASAL BID 04/17/18 04/20/18 History Oint] Aspirin [Adult Low Dose Aspirin EC] 324 mg PO DAILY 04/20/18 04/20/18 History Allergies Allergy/AdvReac Type Severity Reaction Status Date / Time No Known Allergies Allergy Verified 04/20/18 14:28 Physical Exam Vitals: Vital Signs Temp Pulse Resp BP Pulse Ox 04/21/18 08:15 65 04/21/18 08:03 64 04/21/18 07:00 64 14 110/63 97 04/21/18 06:30 62 22 99/65 93 L 04/21/18 06:00 62 11 L 105/65 94 L 04/21/18 05:30 73 17 129/75 95 04/21/18 05:00 65 14 117/74 94 L 04/21/18 04:30 65 13 122/72 92 L 04/21/18 04:00 99.7 F H 63 11 L 121/75 92 L 04/21/18 03:43 11 L 04/21/18 03:30 64 12 111/73 91 L 04/21/18 03:00 64 11 L 105/63 92 L 04/21/18 02:30 64 10 L 111/74 92 L 04/21/18 02:00 64 10 L 134/80 93 L 04/21/18 01:30 72 12 134/80 93 L 04/21/18 01:00 70 13 125/75 92 L 04/21/18 00:30 66 15 125/75 94 L 04/21/18 00:00 98.1 F 70 14 120/70 94 L 04/20/18 23:30 70 14 123/77 92 L 04/20/18 23:02 73 13 124/79 93 L 04/20/18 23:00 73 12 118/83 92 L 04/20/18 22:45 76 13 123/74 94 L 04/20/18 22:30 71 12 129/74 92 L 04/20/18 22:15 76 20 123/81 92 L 04/20/18 22:00 75 13 129/74 92 L 04/20/18 21:45 76 13 116/82 93 L 04/20/18 21:30 70 12 122/73 92 L 04/20/18 21:15 69 7 L 119/71 92 L 04/20/18 21:00 71 14 122/76 92 L 04/20/18 20:45 74 15 136/84 89 L 04/20/18 20:30 83 14 150/96 91 L 04/20/18 20:15 85 13 145/92 94 L 04/20/18 20:00 98.1 F 77 10 L 134/83 94 L 04/20/18 19:45 87 11 L 141/85 94 L 04/20/18 19:30 85 13 132/85 94 L 04/20/18 19:15 87 15 117/83 94 L 04/20/18 19:00 99 F 87 12 134/79 93 L 04/20/18 18:45 89 13 127/83 94 L 04/20/18 18:41 96 04/20/18 18:30 89 12 127/88 97 04/20/18 18:15 90 13 125/82 97 04/20/18 18:00 90 12 117/71 97 04/20/18 17:45 86 12 145/88 95 04/20/18 17:30 85 9 L 139/87 98 04/20/18 17:15 89 11 L 122/83 97 04/20/18 17:00 98.6 F 79 8 L 120/72 95 04/20/18 16:45 78 12 120/79 95 04/20/18 16:30 77 11 L 117/79 95 04/20/18 16:15 76 10 L 116/74 93 L 04/20/18 16:00 98.1 F 73 14 116/73 92 L 04/20/18 15:45 71 4 L 121/78 92 L 04/20/18 15:30 72 14 142/94 93 L 04/20/18 15:15 81 14 134/82 92 L 04/20/18 15:00 95.7 F L 77 14 172/105 92 L 04/20/18 14:45 79 12 185/110 100 04/20/18 14:30 76 12 172/104 100 04/20/18 14:15 71 12 100 04/20/18 14:00 94.1 F L 70 2 L 100 04/20/18 13:53 69 25 H 100 Intake and Output 04/20/18 04/21/18 04/21/18 22:59 06:59 14:59 Intake Total 761.741 877.474 59.833 Output Total 2887 1280 70 Balance -2125.259 -402.526 -10.167 Intake: IV 712.5 732 59 ACETAMINOPHEN IV (For NPO 100 200 ) 1,000 mg In Empty Bag 1 bag @ 400 mls/hr IVPB Q6HR JEF Rx#:[id number] CO/CI 100 60 Lactated Ringers 1,000 ml 400 400 50 @ 50 mls/hr IV .Q20H JEF Rx#:[id number] Nitroglycerin-D5w Pmx 50 10.5 mg In Dextrose/Water 1 250ml.bag @ 5 MCG/MIN 1.5 mls/hr IV .Q24H JEF Rx#: [id number] Pressure Bag 72 72 9 ceFAZolin 2,000 mg In 30 Sodium Chloride 0.9% 30 ml @ Per Protocol IVPB ONCE ONE Rx#:[id number] Intake, IV Titration 49.241 45.474 0.833 Amount Clevidipine Butyrate 25 34.567 35.267 0.833 mg In Empty Bag 1 bag @ 1 MG/HR 2 mls/hr IV .Q24H JEF Rx#:[id number] Insulin Regular 100 unit 3.414 10.207 In Sodium Chloride 0.9% 100 ml @ Per Protocol IV .Q0M JEF Rx#:[id number] Propofol 1,000 mg In 11.26 Empty Bag 1 bag @ Titrate IV .Q0M [facility], [facility]–1983 Rx#: [id number] Oral 100 Output: Chest Tube Drainage 527 460 20 Left and Right Pleural 300 330 20 Mediastinal 227 130 Urine 2360 820 50 Other: Voiding Method Indwelling Catheter Indwelling Catheter Weight 66.6 kg ABP, PAP, CO, CI - Last 8 Hours Arterial Blood Pressure 104/56 Arterial Blood Pressure 108/55 Arterial Blood Pressure 99/51 Arterial Blood Pressure 113/59 Arterial Blood Pressure 125/66 Arterial Blood Pressure 125/66 Arterial Blood Pressure 116/60 Arterial Blood Pressure 121/62 Arterial Blood Pressure 112/59 Arterial Blood Pressure 107/57 Arterial Blood Pressure 130/75 Arterial Blood Pressure 114/70 Pulmonary Artery Pressure 22/8 Pulmonary Artery Pressure 25/13 Pulmonary Artery Pressure 20/6 Pulmonary Artery Pressure 23/10 Pulmonary Artery Pressure 32/16 Pulmonary Artery Pressure 33/20 Pulmonary Artery Pressure 29/16 Pulmonary Artery Pressure 30/15 Pulmonary Artery Pressure 28/15 Pulmonary Artery Pressure 29/16 Pulmonary Artery Pressure 28/14 Pulmonary Artery Pressure 33/21 Cardiac Output 4.5 Cardiac Output 4.5 Cardiac Output 4.5 Cardiac Output 4.5 Cardiac Output 4.5 Cardiac Output 4.5 Cardiac Output 4.8 Cardiac Output 4.8 Cardiac Output 4.8 Cardiac Output 4.8 Cardiac Output 4.8 Cardiac Output 4.8 Cardiac Index 2.6 General: [non toxic], [no distress], [appears at stated age] Derm: [warm], [dry] Head: [atraumatic], [normocephalic], [symmetric], [right IJ] Eyes: [EOMI], [no lid lag], [anicteric sclera] Mouth: [no lip lesion], [mucus membranes moist] Cardiovascular: [S1S2 reg], [systolic murmur], [positive DP pulse bilateral], [ heart hugger, chest tubes in place] Lungs: [Decreased breath sounds bilateral], [no rhonchi, no rales] , [no accessory muscle use] Abdominal: [soft], [ nontender to palpation], [no guarding], [no appreciable organomegaly] Ext: [no gross muscle atrophy], [no edema], [no contractures] Neuro: [no focal neuro deficits] Psych: [Alert], [oriented], [appropriate affect] Results CBC & Chem 7: 04/21/18 05:00 04/21/18 05:00 Labs: Abnormal Lab Results - Last 24 Hours (Table) 04/14/18 04/20/18 04/20/18 Range/Units 10:26 08:30 10:14 WBC (3.8-10.6) k/uL RBC (4.30-5.90) m/uL Hgb (13.0-17.5) gm/dL Hct (39.0-53.0) % Plt Count (150-450) k/uL Neutrophils # (1.3-7.7) k/uL Lymphocytes # (1.0-4.8) k/uL PT (9.0-12.0) sec INR (<1.2) APTT (22.0-30.0) sec ABG pH 7.31 L (7.35-7.45) ABG pCO2 (35-45) mmHg ABG pO2 372 H 189 H (83-108) mmHg ABG HCO3 (21-25) mmol/L ABG Total CO2 (19-24) mmol/L ABG O2 Saturation 99.7 H 99.1 H (94-97) % ABG Hematocrit 33 L (34.0-46.0) % ABG Potassium (3.4-4.5) mmol/L ABG Ionized Calcium (4.5-5.3) mg/dL ABG Glucose 137 H (75-99) mg/dL ABG Lactic Acid (0.5-1.6) mmol/L Hemoglobin 11.2 L 10.7 L (13.0-17.5) gm/dL Chloride (98-107) mmol/L Glucose (74-99) mg/dL POC Glucose (mg/dL) (75-99) mg/dL Calcium (8.4-10.2) mg/dL Ionized Calcium Naima (4.5-5.3) mg/dL Magnesium (1.6-2.3) mg/dL AST (17-59) U/L Total Protein (6.3-8.2) g/dL Albumin (3.5-5.0) g/dL Arterial Blood Potassium (3.4-4.5) mmol/L Arterial Blood Glucose 137 H (75-99) mg/dL Crossmatch See Detail 04/20/18 04/20/18 04/20/18 Range/Units 11:02 11:33 12:05 WBC (3.8-10.6) k/uL RBC (4.30-5.90) m/uL Hgb (13.0-17.5) gm/dL Hct (39.0-53.0) % Plt Count (150-450) k/uL Neutrophils # (1.3-7.7) k/uL Lymphocytes # (1.0-4.8) k/uL PT (9.0-12.0) sec INR (<1.2) APTT (22.0-30.0) sec ABG pH (7.35-7.45) ABG pCO2 (35-45) mmHg ABG pO2 >420 H 397 H 404 H (83-108) mmHg ABG HCO3 (21-25) mmol/L ABG Total CO2 25 H 25 H (19-24) mmol/L ABG O2 Saturation 100.0 H 99.8 H 99.7 H (94-97) % ABG Hematocrit 22 L 22 L 22 L (34.0-46.0) % ABG Potassium 5.2 H 5.2 H (3.4-4.5) mmol/L ABG Ionized Calcium 3.8 L 4.0 L 4.1 L (4.5-5.3) mg/dL ABG Glucose 214 H 232 H 176 H (75-99) mg/dL ABG Lactic Acid 2.1 H 3.0 H* 3.7 H* (0.5-1.6) mmol/L Hemoglobin 7.0 L* 7.2 L 7.3 L (13.0-17.5) gm/dL Chloride (98-107) mmol/L Glucose (74-99) mg/dL POC Glucose (mg/dL) (75-99) mg/dL Calcium (8.4-10.2) mg/dL Ionized Calcium Naima (4.5-5.3) mg/dL Magnesium (1.6-2.3) mg/dL AST (17-59) U/L Total Protein (6.3-8.2) g/dL Albumin (3.5-5.0) g/dL Arterial Blood Potassium 5.2 H 5.2 H (3.4-4.5) mmol/L Arterial Blood Glucose 214 H 232 H 176 H (75-99) mg/dL Crossmatch 04/20/18 04/20/18 04/20/18 Range/Units 13:58 13:58 13:58 WBC (3.8-10.6) k/uL RBC 2.55 L (4.30-5.90) m/uL Hgb 8.2 L D (13.0-17.5) gm/dL Hct 25.0 L (39.0-53.0) % Plt Count 72 L D (150-450) k/uL Neutrophils # (1.3-7.7) k/uL Lymphocytes # (1.0-4.8) k/uL PT 14.6 H (9.0-12.0) sec INR 1.4 H (<1.2) APTT 32.5 H (22.0-30.0) sec ABG pH (7.35-7.45) ABG pCO2 (35-45) mmHg ABG pO2 (83-108) mmHg ABG HCO3 (21-25) mmol/L ABG Total CO2 (19-24) mmol/L ABG O2 Saturation (94-97) % ABG Hematocrit (34.0-46.0) % ABG Potassium (3.4-4.5) mmol/L ABG Ionized Calcium (4.5-5.3) mg/dL ABG Glucose (75-99) mg/dL ABG Lactic Acid (0.5-1.6) mmol/L Hemoglobin (13.0-17.5) gm/dL Chloride 113 H (98-107) mmol/L Glucose 67 L (74-99) mg/dL POC Glucose (mg/dL) (75-99) mg/dL Calcium 7.4 L (8.4-10.2) mg/dL Ionized Calcium Naima 5.4 H (4.5-5.3) mg/dL Magnesium 2.9 H (1.6-2.3) mg/dL AST (17-59) U/L Total Protein 4.8 L (6.3-8.2) g/dL Albumin 3.2 L (3.5-5.0) g/dL Arterial Blood Potassium (3.4-4.5) mmol/L Arterial Blood Glucose (75-99) mg/dL Crossmatch 04/20/18 04/20/18 04/20/18 Range/Units 14:40 15:56 16:50 WBC (3.8-10.6) k/uL RBC (4.30-5.90) m/uL Hgb (13.0-17.5) gm/dL Hct (39.0-53.0) % Plt Count (150-450) k/uL Neutrophils # (1.3-7.7) k/uL Lymphocytes # (1.0-4.8) k/uL PT (9.0-12.0) sec INR (<1.2) APTT (22.0-30.0) sec ABG pH 7.26 L 7.32 L (7.35-7.45) ABG pCO2 56 H 49 H (35-45) mmHg ABG pO2 296 H 81 L (83-108) mmHg ABG HCO3 (21-25) mmol/L ABG Total CO2 27 H 27 H (19-24) mmol/L ABG O2 Saturation 99.8 H (94-97) % ABG Hematocrit (34.0-46.0) % ABG Potassium (3.4-4.5) mmol/L ABG Ionized Calcium (4.5-5.3) mg/dL ABG Glucose (75-99) mg/dL ABG Lactic Acid (0.5-1.6) mmol/L Hemoglobin (13.0-17.5) gm/dL Chloride (98-107) mmol/L Glucose (74-99) mg/dL POC Glucose (mg/dL) 142 H (75-99) mg/dL Calcium (8.4-10.2) mg/dL Ionized Calcium Naima (4.5-5.3) mg/dL Magnesium (1.6-2.3) mg/dL AST (17-59) U/L Total Protein (6.3-8.2) g/dL Albumin (3.5-5.0) g/dL Arterial Blood Potassium (3.4-4.5) mmol/L Arterial Blood Glucose (75-99) mg/dL Crossmatch 04/20/18 04/20/18 04/20/18 Range/Units 16:54 18:00 18:00 WBC 13.7 H (3.8-10.6) k/uL RBC 2.80 L (4.30-5.90) m/uL Hgb 8.9 L (13.0-17.5) gm/dL Hct 27.6 L (39.0-53.0) % Plt Count 112 L D (150-450) k/uL Neutrophils # 11.7 H (1.3-7.7) k/uL Lymphocytes # (1.0-4.8) k/uL PT (9.0-12.0) sec INR (<1.2) APTT (22.0-30.0) sec ABG pH (7.35-7.45) ABG pCO2 47 H (35-45) mmHg ABG pO2 119 H (83-108) mmHg ABG HCO3 26 H (21-25) mmol/L ABG Total CO2 27 H (19-24) mmol/L ABG O2 Saturation 98.9 H (94-97) % ABG Hematocrit (34.0-46.0) % ABG Potassium (3.4-4.5) mmol/L ABG Ionized Calcium (4.5-5.3) mg/dL ABG Glucose (75-99) mg/dL ABG Lactic Acid (0.5-1.6) mmol/L Hemoglobin (13.0-17.5) gm/dL Chloride (98-107) mmol/L Glucose (74-99) mg/dL POC Glucose (mg/dL) 140 H (75-99) mg/dL Calcium (8.4-10.2) mg/dL Ionized Calcium Naima (4.5-5.3) mg/dL Magnesium (1.6-2.3) mg/dL AST (17-59) U/L Total Protein (6.3-8.2) g/dL Albumin (3.5-5.0) g/dL Arterial Blood Potassium (3.4-4.5) mmol/L Arterial Blood Glucose (75-99) mg/dL Crossmatch 04/20/18 04/20/18 04/20/18 Range/Units 18:02 18:58 19:55 WBC (3.8-10.6) k/uL RBC (4.30-5.90) m/uL Hgb (13.0-17.5) gm/dL Hct (39.0-53.0) % Plt Count (150-450) k/uL Neutrophils # (1.3-7.7) k/uL Lymphocytes # (1.0-4.8) k/uL PT (9.0-12.0) sec INR (<1.2) APTT (22.0-30.0) sec ABG pH (7.35-7.45) ABG pCO2 (35-45) mmHg ABG pO2 (83-108) mmHg ABG HCO3 (21-25) mmol/L ABG Total CO2 (19-24) mmol/L ABG O2 Saturation (94-97) % ABG Hematocrit (34.0-46.0) % ABG Potassium (3.4-4.5) mmol/L ABG Ionized Calcium (4.5-5.3) mg/dL ABG Glucose (75-99) mg/dL ABG Lactic Acid (0.5-1.6) mmol/L Hemoglobin (13.0-17.5) gm/dL Chloride (98-107) mmol/L Glucose (74-99) mg/dL POC Glucose (mg/dL) 127 H 119 H 131 H (75-99) mg/dL Calcium (8.4-10.2) mg/dL Ionized Calcium Naima (4.5-5.3) mg/dL Magnesium (1.6-2.3) mg/dL AST (17-59) U/L Total Protein (6.3-8.2) g/dL Albumin (3.5-5.0) g/dL Arterial Blood Potassium (3.4-4.5) mmol/L Arterial Blood Glucose (75-99) mg/dL Crossmatch 04/20/18 04/20/18 04/20/18 Range/Units 20:56 20:59 21:52 WBC 15.5 H (3.8-10.6) k/uL RBC 2.95 L (4.30-5.90) m/uL Hgb 9.2 L (13.0-17.5) gm/dL Hct 29.1 L (39.0-53.0) % Plt Count 119 L (150-450) k/uL Neutrophils # 13.7 H (1.3-7.7) k/uL Lymphocytes # 0.9 L (1.0-4.8) k/uL PT (9.0-12.0) sec INR (<1.2) APTT (22.0-30.0) sec ABG pH (7.35-7.45) ABG pCO2 (35-45) mmHg ABG pO2 (83-108) mmHg ABG HCO3 (21-25) mmol/L ABG Total CO2 (19-24) mmol/L ABG O2 Saturation (94-97) % ABG Hematocrit (34.0-46.0) % ABG Potassium (3.4-4.5) mmol/L ABG Ionized Calcium (4.5-5.3) mg/dL ABG Glucose (75-99) mg/dL ABG Lactic Acid (0.5-1.6) mmol/L Hemoglobin (13.0-17.5) gm/dL Chloride (98-107) mmol/L Glucose (74-99) mg/dL POC Glucose (mg/dL) 138 H 149 H (75-99) mg/dL Calcium (8.4-10.2) mg/dL Ionized Calcium Naima (4.5-5.3) mg/dL Magnesium (1.6-2.3) mg/dL AST (17-59) U/L Total Protein (6.3-8.2) g/dL Albumin (3.5-5.0) g/dL Arterial Blood Potassium (3.4-4.5) mmol/L Arterial Blood Glucose (75-99) mg/dL Crossmatch 04/20/18 04/20/18 04/21/18 Range/Units 22:58 23:54 01:29 WBC (3.8-10.6) k/uL RBC (4.30-5.90) m/uL Hgb (13.0-17.5) gm/dL Hct (39.0-53.0) % Plt Count (150-450) k/uL Neutrophils # (1.3-7.7) k/uL Lymphocytes # (1.0-4.8) k/uL PT (9.0-12.0) sec INR (<1.2) APTT (22.0-30.0) sec ABG pH (7.35-7.45) ABG pCO2 (35-45) mmHg ABG pO2 (83-108) mmHg ABG HCO3 (21-25) mmol/L ABG Total CO2 (19-24) mmol/L ABG O2 Saturation (94-97) % ABG Hematocrit (34.0-46.0) % ABG Potassium (3.4-4.5) mmol/L ABG Ionized Calcium (4.5-5.3) mg/dL ABG Glucose (75-99) mg/dL ABG Lactic Acid (0.5-1.6) mmol/L Hemoglobin (13.0-17.5) gm/dL Chloride (98-107) mmol/L Glucose (74-99) mg/dL POC Glucose (mg/dL) 150 H 135 H 137 H (75-99) mg/dL Calcium (8.4-10.2) mg/dL Ionized Calcium Naima (4.5-5.3) mg/dL Magnesium (1.6-2.3) mg/dL AST (17-59) U/L Total Protein (6.3-8.2) g/dL Albumin (3.5-5.0) g/dL Arterial Blood Potassium (3.4-4.5) mmol/L Arterial Blood Glucose (75-99) mg/dL Crossmatch 04/21/18 04/21/18 04/21/18 Range/Units 02:18 03:16 04:07 WBC (3.8-10.6) k/uL RBC (4.30-5.90) m/uL Hgb (13.0-17.5) gm/dL Hct (39.0-53.0) % Plt Count (150-450) k/uL Neutrophils # (1.3-7.7) k/uL Lymphocytes # (1.0-4.8) k/uL PT (9.0-12.0) sec INR (<1.2) APTT (22.0-30.0) sec ABG pH (7.35-7.45) ABG pCO2 (35-45) mmHg ABG pO2 (83-108) mmHg ABG HCO3 (21-25) mmol/L ABG Total CO2 (19-24) mmol/L ABG O2 Saturation (94-97) % ABG Hematocrit (34.0-46.0) % ABG Potassium (3.4-4.5) mmol/L ABG Ionized Calcium (4.5-5.3) mg/dL ABG Glucose (75-99) mg/dL ABG Lactic Acid (0.5-1.6) mmol/L Hemoglobin (13.0-17.5) gm/dL Chloride (98-107) mmol/L Glucose (74-99) mg/dL POC Glucose (mg/dL) 138 H 130 H 131 H (75-99) mg/dL Calcium (8.4-10.2) mg/dL Ionized Calcium Naima (4.5-5.3) mg/dL Magnesium (1.6-2.3) mg/dL AST (17-59) U/L Total Protein (6.3-8.2) g/dL Albumin (3.5-5.0) g/dL Arterial Blood Potassium (3.4-4.5) mmol/L Arterial Blood Glucose (75-99) mg/dL Crossmatch 04/21/18 04/21/18 04/21/18 Range/Units 05:00 05:00 05:00 WBC 17.4 H (3.8-10.6) k/uL RBC 2.89 L (4.30-5.90) m/uL Hgb 9.0 L (13.0-17.5) gm/dL Hct 28.4 L (39.0-53.0) % Plt Count 104 L (150-450) k/uL Neutrophils # 15.2 H (1.3-7.7) k/uL Lymphocytes # (1.0-4.8) k/uL PT 12.9 H (9.0-12.0) sec INR 1.3 H (<1.2) APTT (22.0-30.0) sec ABG pH (7.35-7.45) ABG pCO2 (35-45) mmHg ABG pO2 (83-108) mmHg ABG HCO3 (21-25) mmol/L ABG Total CO2 (19-24) mmol/L ABG O2 Saturation (94-97) % ABG Hematocrit (34.0-46.0) % ABG Potassium (3.4-4.5) mmol/L ABG Ionized Calcium (4.5-5.3) mg/dL ABG Glucose (75-99) mg/dL ABG Lactic Acid (0.5-1.6) mmol/L Hemoglobin (13.0-17.5) gm/dL Chloride 111 H (98-107) mmol/L Glucose 122 H (74-99) mg/dL POC Glucose (mg/dL) (75-99) mg/dL Calcium (8.4-10.2) mg/dL Ionized Calcium Naima (4.5-5.3) mg/dL Magnesium (1.6-2.3) mg/dL AST 68 H (17-59) U/L Total Protein 5.5 L (6.3-8.2) g/dL Albumin (3.5-5.0) g/dL Arterial Blood Potassium (3.4-4.5) mmol/L Arterial Blood Glucose (75-99) mg/dL Crossmatch 04/21/18 04/21/18 04/21/18 Range/Units 05:01 06:53 08:25 WBC (3.8-10.6) k/uL RBC (4.30-5.90) m/uL Hgb (13.0-17.5) gm/dL Hct (39.0-53.0) % Plt Count (150-450) k/uL Neutrophils # (1.3-7.7) k/uL Lymphocytes # (1.0-4.8) k/uL PT (9.0-12.0) sec INR (<1.2) APTT (22.0-30.0) sec ABG pH (7.35-7.45) ABG pCO2 (35-45) mmHg ABG pO2 (83-108) mmHg ABG HCO3 (21-25) mmol/L ABG Total CO2 (19-24) mmol/L ABG O2 Saturation (94-97) % ABG Hematocrit (34.0-46.0) % ABG Potassium (3.4-4.5) mmol/L ABG Ionized Calcium (4.5-5.3) mg/dL ABG Glucose (75-99) mg/dL ABG Lactic Acid (0.5-1.6) mmol/L Hemoglobin (13.0-17.5) gm/dL Chloride (98-107) mmol/L Glucose (74-99) mg/dL POC Glucose (mg/dL) 142 H 113 H 163 H (75-99) mg/dL Calcium (8.4-10.2) mg/dL Ionized Calcium Naima (4.5-5.3) mg/dL Magnesium (1.6-2.3) mg/dL AST (17-59) U/L Total Protein (6.3-8.2) g/dL Albumin (3.5-5.0) g/dL Arterial Blood Potassium (3.4-4.5) mmol/L Arterial Blood Glucose (75-99) mg/dL Crossmatch Assessment and Plan Assessment: Assessment and Plan 1. Coronary artery disease: s/p triple vessel CABG 04/20/2018, POD 1. Successfully extubated yesterday evening, on 5L NC. Pain management with Tylenol IV, Toradol IV, Oxycodone PRN and Diamond PRN. Continue ASA 325 mg PO QD, Plavix 75 mg PO QD Lipitor 40 mg PO QHS. Continue Metoprolol 12.5 mg PO BID, Clevidipine. DC insulin drip as per protocol. Heart hugger. Incentive spirometry. Telemetry monitoring. Chest tube removal as per CT surgery recommendations. CVP and VS monitoring (MAP > 65). Daily CXR. FU Echocardiogram , CT Surgery, PT/OT, Cardiology consult 2. Acute anemia: Expected blood loss from surgery. Hg 9.2 to 9.0 this morning, stable. Daily CBC. Transfuse if Hg < 7.0. 3. Thrombocytopenia: Plt 72 on admission to 104 today. Unsure of cause. Daily CBC, monitor due to use of Heparin. FU Hep panel 4. Hypertension: BP 110/63. Continue Metoprolol and Clevidine. Monitor vitals, adjust medications as necessary. 5. Transamininitis: AST 68 (T.Bili, ALT and ALK-P is within normal limits. Possibly EtOH or medication induced. FU Hep panel 6. Probable COPD: Stable. Continue DuoNeb PRN for SOB/wheezing. Would benefit from controlled medication prior to DC. O2 per NC to maintain O2 sat > 92%. 7. DVT/GI Prophylaxis: Heparin 5000 units TID, Protonix 40 mg PO QAM. Discussed with [employer] Patricia, right IJ and chest tube likely to be pulled out tomorrow. We'll continue to follow. Thank you for the consult.
[2018-04-21 11:55] LABS: Glucose,Whole Blood 155 mg/dL (75-99)
[2018-04-21] MEDS: INSULIN ASPART 100 UNIT/ML 1 ML 10 ML VIAL SQ SCH ×3 (12:15→21:20)
[2018-04-21] MEDS: LACTATED RINGERS 1,000 ML IV SCH (12:16)
[2018-04-21] MEDS ORDERED: HYDROcodone/APAP 5-325MG 1 EACH TAB PO PRN (13:24)
[2018-04-21] MEDS ORDERED: MAGNESIUM HYDROXIDE 2,400 MG/10 ML CUP PO PRN (13:29)
[2018-04-21] MEDS ORDERED: BISACODYL 10 MG SUPP RECTAL PRN (13:29)
--- NOTE | 2018-04-21 13:51 | P.PN ---
Subjective Progress Note Date: 04/21/18 Principal diagnosis: Status post CABG, postoperative day #1 This is a 67-year-old white male presented back on 02/18/20182 hour ER with abdominal and chest discomfort. 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 Patient was at [facility] for almost a week, and no significant intervention was done. On 2017, presented to our ER, and he was having mostly abdominal pain, decreased appetite, 7 pound weight loss, and arrangements were made for the patient to be transferred to [facility]. Patient underwent stenting of the superior mesenteric artery at [facility], and he was eventually seen by cardiothoracic surgery and while at [facility], and his previous cardiac catheterization was reviewed, patient was advised elective myocardial revascularization. Today the patient underwent three-vessel bypass surgery, postoperatively he was on mechanical ventilation, and this consult was initiated. Presently he is on tidal volume of 500, assist control rate of 14, FiO2 of 50%, and PEEP of 5. Chest x-ray was reviewed, ABG was reviewed, and I discussed his condition with his at bedside. Patient is presently sedated , on mechanical ventilation. Reevaluated today on 04/21/2018, patient was extubated last night uneventfully, he is status post CABG with PRO to LAD, RSV to diagonal artery,, posterior ventricular branch of the right coronary artery, patient was extubated a few hours after his surgery uneventfully last night. Today the patient is doing well, relatively asymptomatic, no cough no wheezing no shortness of breath. Chest x-ray was reviewed, and it showed bibasilar atelectasis, and small left pleural effusion, as expected after surgery. All labs were reviewed, WBC count of 17.4 hemoglobin is 9.0 electrolytes and renal profile are normal. Objective - Vital Signs Vital signs: Vital Signs Temp 98 F 04/21/18 12:00 Pulse 77 04/21/18 13:00 Resp 16 04/21/18 13:00 BP 126/87 04/21/18 13:00 Pulse Ox 97 04/21/18 13:00 Intake & Output 04/20/18 04/21/18 04/21/18 18:59 06:59 18:59 Intake Total 336.435 4436.305 849.833 Output Total 3725 2075 580 Balance -3176.557 -901.695 269.833 Weight 66.6 kg 66.6 kg Intake: IV 513.0 1014.0 369 ACETAMINOPHEN IV (For NPO 100 200 100 ) 1,000 mg In Empty Bag 1 bag @ 400 mls/hr IVPB Q6HR JEF Rx#:[id number] CO/CI 80 100 Lactated Ringers 1,000 ml 250 600 230 @ 20 mls/hr IV .Q24H JEF Rx#:[id number] Nitroglycerin-D5w Pmx 50 6.0 6.0 mg In Dextrose/Water 1 250ml.bag @ 5 MCG/MIN 1.5 mls/hr IV .Q24H JEF Rx#: [id number] Pressure Bag 45 108 39 ceFAZolin 2,000 mg In 30 Sodium Chloride 0.9% 30 ml @ Per Protocol IVPB ONCE ONE Rx#:[id number] Intake, IV Titration 35.443 59.305 0.833 Amount Clevidipine Butyrate 25 22.533 47.334 0.833 mg In Empty Bag 1 bag @ 1 MG/HR 2 mls/hr IV .Q24H JEF Rx#:[id number] Insulin Regular 100 unit 1.650 11.971 In Sodium Chloride 0.9% 100 ml @ Per Protocol IV .Q0M JEF Rx#:[id number] Propofol 1,000 mg In 11.26 Empty Bag 1 bag @ Titrate IV .Q0M JEF Rx#: [id number] Oral 100 480 Output: Chest Tube Drainage 320 700 300 Left and Right Pleural 130 500 190 Mediastinal 190 200 110 Urine 2405 1375 280 Estimated Blood Loss 1000 Other: Voiding Method Indwelling Catheter Indwelling Catheter Indwelling Catheter ABP, PAP, CO, CI - Last Documented Arterial Blood Pressure 126/64 Pulmonary Artery Pressure 22/8 Cardiac Output 4.5 Cardiac Index 2.6 - Exam Physical Exam: Revealed a 67-year-old white male in no distress. On few liters nasal cannula. Head: Atraumatic, normocephalic. HEENT:[Neck is supple.] [No neck masses.] [No thyromegaly.] [No JVD.], Moist mucous membranes. Chest: [Diminished breath sounds at the bases no crackles or rhonchi or wheezes. Chest tubes on both sides were noted to be intact. Surgical site is clean.] Cardiac Exam: [Normal S1 and S2, no S3 gallop, no murmur.] Abdomen: [Soft, nontender, no megaly, no rebound, no guarding, normal bowel sounds.] Extremities: [No clubbing, no edema, no cyanosis.] Neurological Exam: [No focal neurologic deficit.] - Labs CBC & Chem 7: 04/21/18 05:00 04/21/18 05:00 Labs: Abnormal Lab Results - Last 24 Hours (Table) 04/14/18 04/20/18 04/20/18 Range/Units 10:26 08:30 10:14 WBC (3.8-10.6) k/uL RBC (4.30-5.90) m/uL Hgb (13.0-17.5) gm/dL Hct (39.0-53.0) % Plt Count (150-450) k/uL Neutrophils # (1.3-7.7) k/uL Lymphocytes # (1.0-4.8) k/uL PT (9.0-12.0) sec INR (<1.2) APTT (22.0-30.0) sec ABG pH 7.31 L (7.35-7.45) ABG pCO2 (35-45) mmHg ABG pO2 372 H 189 H (83-108) mmHg ABG HCO3 (21-25) mmol/L ABG Total CO2 (19-24) mmol/L ABG O2 Saturation 99.7 H 99.1 H (94-97) % ABG Hematocrit 33 L (34.0-46.0) % ABG Potassium (3.4-4.5) mmol/L ABG Ionized Calcium (4.5-5.3) mg/dL ABG Glucose 137 H (75-99) mg/dL ABG Lactic Acid (0.5-1.6) mmol/L Hemoglobin 11.2 L 10.7 L (13.0-17.5) gm/dL Chloride (98-107) mmol/L Glucose (74-99) mg/dL POC Glucose (mg/dL) (75-99) mg/dL Calcium (8.4-10.2) mg/dL Ionized Calcium Naima (4.5-5.3) mg/dL Magnesium (1.6-2.3) mg/dL AST (17-59) U/L Total Protein (6.3-8.2) g/dL Albumin (3.5-5.0) g/dL Arterial Blood Potassium (3.4-4.5) mmol/L Arterial Blood Glucose 137 H (75-99) mg/dL Crossmatch See Detail 04/20/18 04/20/18 04/20/18 Range/Units 11:02 11:33 12:05 WBC (3.8-10.6) k/uL RBC (4.30-5.90) m/uL Hgb (13.0-17.5) gm/dL Hct (39.0-53.0) % Plt Count (150-450) k/uL Neutrophils # (1.3-7.7) k/uL Lymphocytes # (1.0-4.8) k/uL PT (9.0-12.0) sec INR (<1.2) APTT (22.0-30.0) sec ABG pH (7.35-7.45) ABG pCO2 (35-45) mmHg ABG pO2 >420 H 397 H 404 H (83-108) mmHg ABG HCO3 (21-25) mmol/L ABG Total CO2 25 H 25 H (19-24) mmol/L ABG O2 Saturation 100.0 H 99.8 H 99.7 H (94-97) % ABG Hematocrit 22 L 22 L 22 L (34.0-46.0) % ABG Potassium 5.2 H 5.2 H (3.4-4.5) mmol/L ABG Ionized Calcium 3.8 L 4.0 L 4.1 L (4.5-5.3) mg/dL ABG Glucose 214 H 232 H 176 H (75-99) mg/dL ABG Lactic Acid 2.1 H 3.0 H* 3.7 H* (0.5-1.6) mmol/L Hemoglobin 7.0 L* 7.2 L 7.3 L (13.0-17.5) gm/dL Chloride (98-107) mmol/L Glucose (74-99) mg/dL POC Glucose (mg/dL) (75-99) mg/dL Calcium (8.4-10.2) mg/dL Ionized Calcium Naima (4.5-5.3) mg/dL Magnesium (1.6-2.3) mg/dL AST (17-59) U/L Total Protein (6.3-8.2) g/dL Albumin (3.5-5.0) g/dL Arterial Blood Potassium 5.2 H 5.2 H (3.4-4.5) mmol/L Arterial Blood Glucose 214 H 232 H 176 H (75-99) mg/dL Crossmatch 04/20/18 04/20/18 04/20/18 Range/Units 13:58 13:58 13:58 WBC (3.8-10.6) k/uL RBC 2.55 L (4.30-5.90) m/uL Hgb 8.2 L D (13.0-17.5) gm/dL Hct 25.0 L (39.0-53.0) % Plt Count 72 L D (150-450) k/uL Neutrophils # (1.3-7.7) k/uL Lymphocytes # (1.0-4.8) k/uL PT 14.6 H (9.0-12.0) sec INR 1.4 H (<1.2) APTT 32.5 H (22.0-30.0) sec ABG pH (7.35-7.45) ABG pCO2 (35-45) mmHg ABG pO2 (83-108) mmHg ABG HCO3 (21-25) mmol/L ABG Total CO2 (19-24) mmol/L ABG O2 Saturation (94-97) % ABG Hematocrit (34.0-46.0) % ABG Potassium (3.4-4.5) mmol/L ABG Ionized Calcium (4.5-5.3) mg/dL ABG Glucose (75-99) mg/dL ABG Lactic Acid (0.5-1.6) mmol/L Hemoglobin (13.0-17.5) gm/dL Chloride 113 H (98-107) mmol/L Glucose 67 L (74-99) mg/dL POC Glucose (mg/dL) (75-99) mg/dL Calcium 7.4 L (8.4-10.2) mg/dL Ionized Calcium Naima 5.4 H (4.5-5.3) mg/dL Magnesium 2.9 H (1.6-2.3) mg/dL AST (17-59) U/L Total Protein 4.8 L (6.3-8.2) g/dL Albumin 3.2 L (3.5-5.0) g/dL Arterial Blood Potassium (3.4-4.5) mmol/L Arterial Blood Glucose (75-99) mg/dL Crossmatch 04/20/18 04/20/18 04/20/18 Range/Units 14:40 15:56 16:50 WBC (3.8-10.6) k/uL RBC (4.30-5.90) m/uL Hgb (13.0-17.5) gm/dL Hct (39.0-53.0) % Plt Count (150-450) k/uL Neutrophils # (1.3-7.7) k/uL Lymphocytes # (1.0-4.8) k/uL PT (9.0-12.0) sec INR (<1.2) APTT (22.0-30.0) sec ABG pH 7.26 L 7.32 L (7.35-7.45) ABG pCO2 56 H 49 H (35-45) mmHg ABG pO2 296 H 81 L (83-108) mmHg ABG HCO3 (21-25) mmol/L ABG Total CO2 27 H 27 H (19-24) mmol/L ABG O2 Saturation 99.8 H (94-97) % ABG Hematocrit (34.0-46.0) % ABG Potassium (3.4-4.5) mmol/L ABG Ionized Calcium (4.5-5.3) mg/dL ABG Glucose (75-99) mg/dL ABG Lactic Acid (0.5-1.6) mmol/L Hemoglobin (13.0-17.5) gm/dL Chloride (98-107) mmol/L Glucose (74-99) mg/dL POC Glucose (mg/dL) 142 H (75-99) mg/dL Calcium (8.4-10.2) mg/dL Ionized Calcium Naima (4.5-5.3) mg/dL Magnesium (1.6-2.3) mg/dL AST (17-59) U/L Total Protein (6.3-8.2) g/dL Albumin (3.5-5.0) g/dL Arterial Blood Potassium (3.4-4.5) mmol/L Arterial Blood Glucose (75-99) mg/dL Crossmatch 04/20/18 04/20/18 04/20/18 Range/Units 16:54 18:00 18:00 WBC 13.7 H (3.8-10.6) k/uL RBC 2.80 L (4.30-5.90) m/uL Hgb 8.9 L (13.0-17.5) gm/dL Hct 27.6 L (39.0-53.0) % Plt Count 112 L D (150-450) k/uL Neutrophils # 11.7 H (1.3-7.7) k/uL Lymphocytes # (1.0-4.8) k/uL PT (9.0-12.0) sec INR (<1.2) APTT (22.0-30.0) sec ABG pH (7.35-7.45) ABG pCO2 47 H (35-45) mmHg ABG pO2 119 H (83-108) mmHg ABG HCO3 26 H (21-25) mmol/L ABG Total CO2 27 H (19-24) mmol/L ABG O2 Saturation 98.9 H (94-97) % ABG Hematocrit (34.0-46.0) % ABG Potassium (3.4-4.5) mmol/L ABG Ionized Calcium (4.5-5.3) mg/dL ABG Glucose (75-99) mg/dL ABG Lactic Acid (0.5-1.6) mmol/L Hemoglobin (13.0-17.5) gm/dL Chloride (98-107) mmol/L Glucose (74-99) mg/dL POC Glucose (mg/dL) 140 H (75-99) mg/dL Calcium (8.4-10.2) mg/dL Ionized Calcium Naima (4.5-5.3) mg/dL Magnesium (1.6-2.3) mg/dL AST (17-59) U/L Total Protein (6.3-8.2) g/dL Albumin (3.5-5.0) g/dL Arterial Blood Potassium (3.4-4.5) mmol/L Arterial Blood Glucose (75-99) mg/dL Crossmatch 04/20/18 04/20/18 04/20/18 Range/Units 18:02 18:58 19:55 WBC (3.8-10.6) k/uL RBC (4.30-5.90) m/uL Hgb (13.0-17.5) gm/dL Hct (39.0-53.0) % Plt Count (150-450) k/uL Neutrophils # (1.3-7.7) k/uL Lymphocytes # (1.0-4.8) k/uL PT (9.0-12.0) sec INR (<1.2) APTT (22.0-30.0) sec ABG pH (7.35-7.45) ABG pCO2 (35-45) mmHg ABG pO2 (83-108) mmHg ABG HCO3 (21-25) mmol/L ABG Total CO2 (19-24) mmol/L ABG O2 Saturation (94-97) % ABG Hematocrit (34.0-46.0) % ABG Potassium (3.4-4.5) mmol/L ABG Ionized Calcium (4.5-5.3) mg/dL ABG Glucose (75-99) mg/dL ABG Lactic Acid (0.5-1.6) mmol/L Hemoglobin (13.0-17.5) gm/dL Chloride (98-107) mmol/L Glucose (74-99) mg/dL POC Glucose (mg/dL) 127 H 119 H 131 H (75-99) mg/dL Calcium (8.4-10.2) mg/dL Ionized Calcium Naima (4.5-5.3) mg/dL Magnesium (1.6-2.3) mg/dL AST (17-59) U/L Total Protein (6.3-8.2) g/dL Albumin (3.5-5.0) g/dL Arterial Blood Potassium (3.4-4.5) mmol/L Arterial Blood Glucose (75-99) mg/dL Crossmatch 04/20/18 04/20/18 04/20/18 Range/Units 20:56 20:59 21:52 WBC 15.5 H (3.8-10.6) k/uL RBC 2.95 L (4.30-5.90) m/uL Hgb 9.2 L (13.0-17.5) gm/dL Hct 29.1 L (39.0-53.0) % Plt Count 119 L (150-450) k/uL Neutrophils # 13.7 H (1.3-7.7) k/uL Lymphocytes # 0.9 L (1.0-4.8) k/uL PT (9.0-12.0) sec INR (<1.2) APTT (22.0-30.0) sec ABG pH (7.35-7.45) ABG pCO2 (35-45) mmHg ABG pO2 (83-108) mmHg ABG HCO3 (21-25) mmol/L ABG Total CO2 (19-24) mmol/L ABG O2 Saturation (94-97) % ABG Hematocrit (34.0-46.0) % ABG Potassium (3.4-4.5) mmol/L ABG Ionized Calcium (4.5-5.3) mg/dL ABG Glucose (75-99) mg/dL ABG Lactic Acid (0.5-1.6) mmol/L Hemoglobin (13.0-17.5) gm/dL Chloride (98-107) mmol/L Glucose (74-99) mg/dL POC Glucose (mg/dL) 138 H 149 H (75-99) mg/dL Calcium (8.4-10.2) mg/dL Ionized Calcium Naima (4.5-5.3) mg/dL Magnesium (1.6-2.3) mg/dL AST (17-59) U/L Total Protein (6.3-8.2) g/dL Albumin (3.5-5.0) g/dL Arterial Blood Potassium (3.4-4.5) mmol/L Arterial Blood Glucose (75-99) mg/dL Crossmatch 04/20/18 04/20/18 04/21/18 Range/Units 22:58 23:54 01:29 WBC (3.8-10.6) k/uL RBC (4.30-5.90) m/uL Hgb (13.0-17.5) gm/dL Hct (39.0-53.0) % Plt Count (150-450) k/uL Neutrophils # (1.3-7.7) k/uL Lymphocytes # (1.0-4.8) k/uL PT (9.0-12.0) sec INR (<1.2) APTT (22.0-30.0) sec ABG pH (7.35-7.45) ABG pCO2 (35-45) mmHg ABG pO2 (83-108) mmHg ABG HCO3 (21-25) mmol/L ABG Total CO2 (19-24) mmol/L ABG O2 Saturation (94-97) % ABG Hematocrit (34.0-46.0) % ABG Potassium (3.4-4.5) mmol/L ABG Ionized Calcium (4.5-5.3) mg/dL ABG Glucose (75-99) mg/dL ABG Lactic Acid (0.5-1.6) mmol/L Hemoglobin (13.0-17.5) gm/dL Chloride (98-107) mmol/L Glucose (74-99) mg/dL POC Glucose (mg/dL) 150 H 135 H 137 H (75-99) mg/dL Calcium (8.4-10.2) mg/dL Ionized Calcium Naima (4.5-5.3) mg/dL Magnesium (1.6-2.3) mg/dL AST (17-59) U/L Total Protein (6.3-8.2) g/dL Albumin (3.5-5.0) g/dL Arterial Blood Potassium (3.4-4.5) mmol/L Arterial Blood Glucose (75-99) mg/dL Crossmatch 04/21/18 04/21/18 04/21/18 Range/Units 02:18 03:16 04:07 WBC (3.8-10.6) k/uL RBC (4.30-5.90) m/uL Hgb (13.0-17.5) gm/dL Hct (39.0-53.0) % Plt Count (150-450) k/uL Neutrophils # (1.3-7.7) k/uL Lymphocytes # (1.0-4.8) k/uL PT (9.0-12.0) sec INR (<1.2) APTT (22.0-30.0) sec ABG pH (7.35-7.45) ABG pCO2 (35-45) mmHg ABG pO2 (83-108) mmHg ABG HCO3 (21-25) mmol/L ABG Total CO2 (19-24) mmol/L ABG O2 Saturation (94-97) % ABG Hematocrit (34.0-46.0) % ABG Potassium (3.4-4.5) mmol/L ABG Ionized Calcium (4.5-5.3) mg/dL ABG Glucose (75-99) mg/dL ABG Lactic Acid (0.5-1.6) mmol/L Hemoglobin (13.0-17.5) gm/dL Chloride (98-107) mmol/L Glucose (74-99) mg/dL POC Glucose (mg/dL) 138 H 130 H 131 H (75-99) mg/dL Calcium (8.4-10.2) mg/dL Ionized Calcium Naima (4.5-5.3) mg/dL Magnesium (1.6-2.3) mg/dL AST (17-59) U/L Total Protein (6.3-8.2) g/dL Albumin (3.5-5.0) g/dL Arterial Blood Potassium (3.4-4.5) mmol/L Arterial Blood Glucose (75-99) mg/dL Crossmatch 04/21/18 04/21/18 04/21/18 Range/Units 05:00 05:00 05:00 WBC 17.4 H (3.8-10.6) k/uL RBC 2.89 L (4.30-5.90) m/uL Hgb 9.0 L (13.0-17.5) gm/dL Hct 28.4 L (39.0-53.0) % Plt Count 104 L (150-450) k/uL Neutrophils # 15.2 H (1.3-7.7) k/uL Lymphocytes # (1.0-4.8) k/uL PT 12.9 H (9.0-12.0) sec INR 1.3 H (<1.2) APTT (22.0-30.0) sec ABG pH (7.35-7.45) ABG pCO2 (35-45) mmHg ABG pO2 (83-108) mmHg ABG HCO3 (21-25) mmol/L ABG Total CO2 (19-24) mmol/L ABG O2 Saturation (94-97) % ABG Hematocrit (34.0-46.0) % ABG Potassium (3.4-4.5) mmol/L ABG Ionized Calcium (4.5-5.3) mg/dL ABG Glucose (75-99) mg/dL ABG Lactic Acid (0.5-1.6) mmol/L Hemoglobin (13.0-17.5) gm/dL Chloride 111 H (98-107) mmol/L Glucose 122 H (74-99) mg/dL POC Glucose (mg/dL) (75-99) mg/dL Calcium (8.4-10.2) mg/dL Ionized Calcium Naima (4.5-5.3) mg/dL Magnesium (1.6-2.3) mg/dL AST 68 H (17-59) U/L Total Protein 5.5 L (6.3-8.2) g/dL Albumin (3.5-5.0) g/dL Arterial Blood Potassium (3.4-4.5) mmol/L Arterial Blood Glucose (75-99) mg/dL Crossmatch 04/21/18 04/21/18 04/21/18 Range/Units 05:01 06:53 08:25 WBC (3.8-10.6) k/uL RBC (4.30-5.90) m/uL Hgb (13.0-17.5) gm/dL Hct (39.0-53.0) % Plt Count (150-450) k/uL Neutrophils # (1.3-7.7) k/uL Lymphocytes # (1.0-4.8) k/uL PT (9.0-12.0) sec INR (<1.2) APTT (22.0-30.0) sec ABG pH (7.35-7.45) ABG pCO2 (35-45) mmHg ABG pO2 (83-108) mmHg ABG HCO3 (21-25) mmol/L ABG Total CO2 (19-24) mmol/L ABG O2 Saturation (94-97) % ABG Hematocrit (34.0-46.0) % ABG Potassium (3.4-4.5) mmol/L ABG Ionized Calcium (4.5-5.3) mg/dL ABG Glucose (75-99) mg/dL ABG Lactic Acid (0.5-1.6) mmol/L Hemoglobin (13.0-17.5) gm/dL Chloride (98-107) mmol/L Glucose (74-99) mg/dL POC Glucose (mg/dL) 142 H 113 H 163 H (75-99) mg/dL Calcium (8.4-10.2) mg/dL Ionized Calcium Naima (4.5-5.3) mg/dL Magnesium (1.6-2.3) mg/dL AST (17-59) U/L Total Protein (6.3-8.2) g/dL Albumin (3.5-5.0) g/dL Arterial Blood Potassium (3.4-4.5) mmol/L Arterial Blood Glucose (75-99) mg/dL Crossmatch 04/21/18 Range/Units 11:52 WBC (3.8-10.6) k/uL RBC (4.30-5.90) m/uL Hgb (13.0-17.5) gm/dL Hct (39.0-53.0) % Plt Count (150-450) k/uL Neutrophils # (1.3-7.7) k/uL Lymphocytes # (1.0-4.8) k/uL PT (9.0-12.0) sec INR (<1.2) APTT (22.0-30.0) sec ABG pH (7.35-7.45) ABG pCO2 (35-45) mmHg ABG pO2 (83-108) mmHg ABG HCO3 (21-25) mmol/L ABG Total CO2 (19-24) mmol/L ABG O2 Saturation (94-97) % ABG Hematocrit (34.0-46.0) % ABG Potassium (3.4-4.5) mmol/L ABG Ionized Calcium (4.5-5.3) mg/dL ABG Glucose (75-99) mg/dL ABG Lactic Acid (0.5-1.6) mmol/L Hemoglobin (13.0-17.5) gm/dL Chloride (98-107) mmol/L Glucose (74-99) mg/dL POC Glucose (mg/dL) 155 H (75-99) mg/dL Calcium (8.4-10.2) mg/dL Ionized Calcium Naima (4.5-5.3) mg/dL Magnesium (1.6-2.3) mg/dL AST (17-59) U/L Total Protein (6.3-8.2) g/dL Albumin (3.5-5.0) g/dL Arterial Blood Potassium (3.4-4.5) mmol/L Arterial Blood Glucose (75-99) mg/dL Crossmatch Assessment and Plan Assessment: Impression: 1 status post CABG, three-vessel bypass surgery, postoperative day #1, uneventful postoperative course so far, patient was extubated within a few hours after his surgery. 2 postoperative atelectasis, expected after surgery. 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 5 triple-vessel coronary artery disease. Recommendation: Continue incentive spirometry, bronchodilators, early ambulation , cardiac meds as listed, will follow. Time with Patient: Less than 30
--- NOTE | 2018-04-21 17:02 | P.PN ---
Subjective Progress Note Date: 04/21/18 Principal diagnosis: Unstable angina, triple-vessel coronary artery disease. Previous medical history of hypertension, hyperlipidemia, current tobacco dependence with preoperative FEV1 111% of predicted, bilateral internal carotid artery stenosis 50-79%, basal cell skin cancer, superior mesenteric artery stenosis. POD #1 coronary bypass grafting 3 with the left internal mammary to the left anterior descending artery. Reverse saphenous vein graft off the aorta to the high diagonal artery in the posterior ventricular branch of the right coronary artery with endarterectomy of the posterior lateral branch of the RCA with vein patch angioplasty. Clip ligation of the left atrial appendage with a #35 mm AtriClip. Intraoperative transesophageal echocardiogram. Postoperative acute blood loss anemia, unexpected but potential outcome secondary to hemodilution and cardiopulmonary bypass pump. Patient's currently sitting up in a recliner in no acute distress. States pain is well controlled on current medication regimen, denies shortness of breath. Currently hemodynamically stable on no inotropes or pressors. Was successfully extubated last night at 18:30. Objective - Vital Signs Vital signs: Vital Signs Temp 98 F 04/21/18 12:00 Pulse 65 04/21/18 15:54 Resp 14 04/21/18 15:00 BP 105/65 04/21/18 15:00 Pulse Ox 99 04/21/18 15:00 Intake & Output 04/20/18 04/21/18 04/21/18 18:59 06:59 18:59 Intake Total 943.019 7057.305 872.833 Output Total 3725 2075 650 Balance -3176.557 -901.695 222.833 Weight 66.6 kg 66.6 kg Intake: IV 513.0 1014.0 392 ACETAMINOPHEN IV (For NPO 100 200 100 ) 1,000 mg In Empty Bag 1 bag @ 400 mls/hr IVPB Q6HR JEF Rx#:[id number] CO/CI 80 100 Lactated Ringers 1,000 ml 250 600 250 @ 20 mls/hr IV .Q24H JEF Rx#:[id number] Nitroglycerin-D5w Pmx 50 6.0 6.0 mg In Dextrose/Water 1 250ml.bag @ 5 MCG/MIN 1.5 mls/hr IV .Q24H JEF Rx#: [id number] Pressure Bag 45 108 42 ceFAZolin 2,000 mg In 30 Sodium Chloride 0.9% 30 ml @ Per Protocol IVPB ONCE ONE Rx#:[id number] Intake, IV Titration 35.443 59.305 0.833 Amount Clevidipine Butyrate 25 22.533 47.334 0.833 mg In Empty Bag 1 bag @ 1 MG/HR 2 mls/hr IV .Q24H JEF Rx#:[id number] Insulin Regular 100 unit 1.650 11.971 In Sodium Chloride 0.9% 100 ml @ Per Protocol IV .Q0M JEF Rx#:[id number] Propofol 1,000 mg In 11.26 Empty Bag 1 bag @ Titrate IV .Q0M JEF Rx#: [id number] Oral 100 480 Output: Chest Tube Drainage 320 700 340 Left and Right Pleural 130 500 210 Mediastinal 190 200 130 Urine 2405 1375 310 Estimated Blood Loss 1000 Other: Voiding Method Indwelling Catheter Indwelling Catheter Indwelling Catheter ABP, PAP, CO, CI - Last Documented Arterial Blood Pressure 126/64 Pulmonary Artery Pressure 22/8 Cardiac Output 4.5 Cardiac Index 2.6 - Constitutional General appearance: Present: cooperative, no acute distress - Respiratory Details: Lungs sounds diminished bilaterally. Respirations even, nonlabored. Currently on 5 L nasal cannula with oxygen saturation 99%. Able to achieve 750 and his incentive spirometry. Strong cough. Mediastinal chest tubes to continuous wall suction, 130 mL serosanguineous drainage overnight, 390 mL since surgery. Right/left pleural chest tube to continuous wall suction, 330 mL serosanguineous drainage overnight, 630 mL since surgery. No air leaks present. - Cardiovascular Details: S1, S2 present. Regular rate and rhythm, sinus rhythm on telemetry. Palpable peripheral pulses bilaterally. No edema present. No calf pain or tenderness noted. Right internal jugular Ririe/Cordis, right radial arterial line present. Last CO/CI 4.5/2.6 on no inotropes or pressors. Heart hugger placed patient demonstrating appropriate use. Antiembolism stockings, SCDs present. - Gastrointestinal Gastrointestinal Comment(s): Abdomen soft, nontender, nondistended. Active bowel sounds 4 quadrants. Tolerating clear liquids. Negative flatus. - Genitourinary Genitourinary Comment(s): Nagel present draining clear, yellow urine. Output 55-150 mL per hour overnight. - Integumentary Integumentary Comment(s): Skin is warm and dry with evidence of good perfusion. Anterior chest incision well approximated and covered with dry intact dressing. Left lower extremity EVH site well approximated. - Neurologic Neurologic: Present: CNII-XII intact - Musculoskeletal Musculoskeletal: Present: gait normal, strength equal bilaterally - Psychiatric Psychiatric: Present: A&O x's 3, appropriate affect, intact judgment & insight - Allied health notes Allied health notes reviewed: nursing - Labs CBC & Chem 7: 04/21/18 05:00 04/21/18 05:00 Labs: Abnormal Lab Results - Last 24 Hours (Table) 04/14/18 04/20/18 04/20/18 Range/Units 10:26 16:50 16:54 WBC (3.8-10.6) k/uL RBC (4.30-5.90) m/uL Hgb (13.0-17.5) gm/dL Hct (39.0-53.0) % Plt Count (150-450) k/uL Neutrophils # (1.3-7.7) k/uL Lymphocytes # (1.0-4.8) k/uL PT (9.0-12.0) sec INR (<1.2) ABG pH 7.32 L (7.35-7.45) ABG pCO2 49 H (35-45) mmHg ABG pO2 81 L (83-108) mmHg ABG HCO3 (21-25) mmol/L ABG Total CO2 27 H (19-24) mmol/L ABG O2 Saturation (94-97) % Chloride (98-107) mmol/L Glucose (74-99) mg/dL POC Glucose (mg/dL) 140 H (75-99) mg/dL AST (17-59) U/L Total Protein (6.3-8.2) g/dL Crossmatch See Detail 04/20/18 04/20/18 04/20/18 Range/Units 18:00 18:00 18:02 WBC 13.7 H (3.8-10.6) k/uL RBC 2.80 L (4.30-5.90) m/uL Hgb 8.9 L (13.0-17.5) gm/dL Hct 27.6 L (39.0-53.0) % Plt Count 112 L D (150-450) k/uL Neutrophils # 11.7 H (1.3-7.7) k/uL Lymphocytes # (1.0-4.8) k/uL PT (9.0-12.0) sec INR (<1.2) ABG pH (7.35-7.45) ABG pCO2 47 H (35-45) mmHg ABG pO2 119 H (83-108) mmHg ABG HCO3 26 H (21-25) mmol/L ABG Total CO2 27 H (19-24) mmol/L ABG O2 Saturation 98.9 H (94-97) % Chloride (98-107) mmol/L Glucose (74-99) mg/dL POC Glucose (mg/dL) 127 H (75-99) mg/dL AST (17-59) U/L Total Protein (6.3-8.2) g/dL Crossmatch 04/20/18 04/20/18 04/20/18 Range/Units 18:58 19:55 20:56 WBC 15.5 H (3.8-10.6) k/uL RBC 2.95 L (4.30-5.90) m/uL Hgb 9.2 L (13.0-17.5) gm/dL Hct 29.1 L (39.0-53.0) % Plt Count 119 L (150-450) k/uL Neutrophils # 13.7 H (1.3-7.7) k/uL Lymphocytes # 0.9 L (1.0-4.8) k/uL PT (9.0-12.0) sec INR (<1.2) ABG pH (7.35-7.45) ABG pCO2 (35-45) mmHg ABG pO2 (83-108) mmHg ABG HCO3 (21-25) mmol/L ABG Total CO2 (19-24) mmol/L ABG O2 Saturation (94-97) % Chloride (98-107) mmol/L Glucose (74-99) mg/dL POC Glucose (mg/dL) 119 H 131 H (75-99) mg/dL AST (17-59) U/L Total Protein (6.3-8.2) g/dL Crossmatch 04/20/18 04/20/18 04/20/18 Range/Units 20:59 21:52 22:58 WBC (3.8-10.6) k/uL RBC (4.30-5.90) m/uL Hgb (13.0-17.5) gm/dL Hct (39.0-53.0) % Plt Count (150-450) k/uL Neutrophils # (1.3-7.7) k/uL Lymphocytes # (1.0-4.8) k/uL PT (9.0-12.0) sec INR (<1.2) ABG pH (7.35-7.45) ABG pCO2 (35-45) mmHg ABG pO2 (83-108) mmHg ABG HCO3 (21-25) mmol/L ABG Total CO2 (19-24) mmol/L ABG O2 Saturation (94-97) % Chloride (98-107) mmol/L Glucose (74-99) mg/dL POC Glucose (mg/dL) 138 H 149 H 150 H (75-99) mg/dL AST (17-59) U/L Total Protein (6.3-8.2) g/dL Crossmatch 04/20/18 04/21/18 04/21/18 Range/Units 23:54 01:29 02:18 WBC (3.8-10.6) k/uL RBC (4.30-5.90) m/uL Hgb (13.0-17.5) gm/dL Hct (39.0-53.0) % Plt Count (150-450) k/uL Neutrophils # (1.3-7.7) k/uL Lymphocytes # (1.0-4.8) k/uL PT (9.0-12.0) sec INR (<1.2) ABG pH (7.35-7.45) ABG pCO2 (35-45) mmHg ABG pO2 (83-108) mmHg ABG HCO3 (21-25) mmol/L ABG Total CO2 (19-24) mmol/L ABG O2 Saturation (94-97) % Chloride (98-107) mmol/L Glucose (74-99) mg/dL POC Glucose (mg/dL) 135 H 137 H 138 H (75-99) mg/dL AST (17-59) U/L Total Protein (6.3-8.2) g/dL Crossmatch 04/21/18 04/21/18 04/21/18 Range/Units 03:16 04:07 05:00 WBC 17.4 H (3.8-10.6) k/uL RBC 2.89 L (4.30-5.90) m/uL Hgb 9.0 L (13.0-17.5) gm/dL Hct 28.4 L (39.0-53.0) % Plt Count 104 L (150-450) k/uL Neutrophils # 15.2 H (1.3-7.7) k/uL Lymphocytes # (1.0-4.8) k/uL PT (9.0-12.0) sec INR (<1.2) ABG pH (7.35-7.45) ABG pCO2 (35-45) mmHg ABG pO2 (83-108) mmHg ABG HCO3 (21-25) mmol/L ABG Total CO2 (19-24) mmol/L ABG O2 Saturation (94-97) % Chloride (98-107) mmol/L Glucose (74-99) mg/dL POC Glucose (mg/dL) 130 H 131 H (75-99) mg/dL AST (17-59) U/L Total Protein (6.3-8.2) g/dL Crossmatch 04/21/18 04/21/18 04/21/18 Range/Units 05:00 05:00 05:01 WBC (3.8-10.6) k/uL RBC (4.30-5.90) m/uL Hgb (13.0-17.5) gm/dL Hct (39.0-53.0) % Plt Count (150-450) k/uL Neutrophils # (1.3-7.7) k/uL Lymphocytes # (1.0-4.8) k/uL PT 12.9 H (9.0-12.0) sec INR 1.3 H (<1.2) ABG pH (7.35-7.45) ABG pCO2 (35-45) mmHg ABG pO2 (83-108) mmHg ABG HCO3 (21-25) mmol/L ABG Total CO2 (19-24) mmol/L ABG O2 Saturation (94-97) % Chloride 111 H (98-107) mmol/L Glucose 122 H (74-99) mg/dL POC Glucose (mg/dL) 142 H (75-99) mg/dL AST 68 H (17-59) U/L Total Protein 5.5 L (6.3-8.2) g/dL Crossmatch 04/21/18 04/21/18 04/21/18 Range/Units 06:53 08:25 11:52 WBC (3.8-10.6) k/uL RBC (4.30-5.90) m/uL Hgb (13.0-17.5) gm/dL Hct (39.0-53.0) % Plt Count (150-450) k/uL Neutrophils # (1.3-7.7) k/uL Lymphocytes # (1.0-4.8) k/uL PT (9.0-12.0) sec INR (<1.2) ABG pH (7.35-7.45) ABG pCO2 (35-45) mmHg ABG pO2 (83-108) mmHg ABG HCO3 (21-25) mmol/L ABG Total CO2 (19-24) mmol/L ABG O2 Saturation (94-97) % Chloride (98-107) mmol/L Glucose (74-99) mg/dL POC Glucose (mg/dL) 113 H 163 H 155 H (75-99) mg/dL AST (17-59) U/L Total Protein (6.3-8.2) g/dL Crossmatch - Imaging and Cardiology Chest x-ray: report reviewed, image reviewed Assessment and Plan (1) Coronary artery disease Current Visit: Yes Status: Chronic Code(s): I25.10 - ATHSCL HEART DISEASE OF [place] CORONARY ARTERY W/O ANG PCTRS SNOMED Code(s): 58392997 (2) Tobacco dependence Current Visit: Yes Status: Chronic Code(s): F17.200 - NICOTINE DEPENDENCE, UNSPECIFIED, UNCOMPLICATED SNOMED Code(s): 05771353 (3) Hypertension Current Visit: Yes Status: Chronic Code(s): I10 - ESSENTIAL (PRIMARY) HYPERTENSION SNOMED Code(s): 43251230 (4) Hyperlipidemia Current Visit: Yes Status: Chronic Code(s): E78.5 - HYPERLIPIDEMIA, UNSPECIFIED SNOMED Code(s): 57025394 (5) Bilateral carotid artery stenosis Current Visit: Yes Status: Chronic Code(s): I65.23 - OCCLUSION AND STENOSIS OF BILATERAL CAROTID ARTERIES SNOMED Code(s): 80072724 (6) Mesenteric artery stenosis Current Visit: Yes Status: Chronic Code(s): K55.1 - CHRONIC VASCULAR DISORDERS OF INTESTINE SNOMED Code(s): 306747483 Plan: 1. Continue aspirin, statin, Plavix, beta cierra therapy. Will increase beta cierra therapy as tolerated. 2. Wean O2 as tolerated. Encourage incentive spirometry 10 times every hour while awake. 3. Encourage smoking cessation. 4. Bronchodilators per pulmonology. 5. Increase activity, ambulate as tolerated. PT/OT/cardiac rehab following. 6. Discontinue nitro drip. 7. Discontinue Ririe. Correct Cordis to continue CVP monitoring. 8. Pain controlled current medication regimen. Will add Toradol. 9. Will monitor daily labs and x-rays. No transfusion. 10. Insulin management per primary care service. 11. GI prophylaxis with Protonix. DVT prophylaxis with subcu heparin, SCDs. 12. More recommendations to follow. Time with Patient: Greater than 30
[2018-04-21 17:14] LABS: Glucose,Whole Blood 125 mg/dL (75-99)
[2018-04-21 21:04] LABS: Glucose,Whole Blood 160 mg/dL (75-99)
[2018-04-21] MEDS: SENNOSIDES-DOCUSATE SODIUM 1 EACH TAB PO SCH (21:19)
[2018-04-22 01:22] LABS: Glucose,Whole Blood 127 mg/dL (75-99)
[2018-04-22] MEDS: HEPARIN SODIUM,PORCINE 5,000 UNIT/ML 1 ML VIAL SQ SCH ×3 (01:23→16:12)
[2018-04-22] MEDS: INSULIN ASPART 100 UNIT/ML 1 ML 10 ML VIAL SQ SCH ×5 (01:24→21:23)
[2018-04-22] MEDS: KETOROLAC 30 MG/ML 1 ML VIAL IVP SCH ×4 (03:05→20:32)
--- NOTE | 2018-04-22 06:40 | XR ---
EXAMINATION TYPE: XR chest 1V portable DATE OF EXAM: 04/22/2018 COMPARISON: 04/30/2018 INDICATION: Post cardiac surgery TECHNIQUE: Single frontal view of the chest is obtained. FINDINGS: The heart size is normal. The pulmonary vasculature is normal. Mild scattered increased lung markings are present greater at the left lower lobe. Multiple lines and catheters are present. Bilateral chest tubes are present. No pneumothorax is evide nt. A right central venous catheter sheath is present. Hyannis-Nick catheter is been removed. Sternotomy wires are present from the patient's cardiac surgery. Mediastinal tube is present. IMPRESSION: 1. Multiple lines and catheters discussed above. 2. Mild infiltrate at the left base likely atelectasis.
[2018-04-22 07:01] LABS: Glucose,Whole Blood 129 mg/dL (75-99)
[2018-04-22 07:06] LABS: Basophils % (A) 0 %; Eosinophils # (A) 0.1 k/uL (0-0.7); Eosinophils % (A) 1 %; HCT 27.8 % (39.0-53.0); HGB 8.9 gm/dL (13.0-17.5); Lymphocytes # (A) 1.6 k/uL (1.0-4.8); Lymphocytes % (A) 9 %; MCH 31.5 pg (25.0-35.0); MCV 98.4 fL (80.0-100.0); Mean Platelet Volume 9.1; Monocytes % (A) 6 %; Neutrophils # (A) 14.1 k/uL (1.3-7.7); Neutrophils % (A) 83 %; Platelet Count 86 k/uL (150-450); RBC 2.83 m/uL (4.30-5.90); RDW 14.5 % (11.5-15.5); WBC 16.9 k/uL (3.8-10.6)
[2018-04-22 07:18] LABS: Ionized Calcium 5.1 mg/dL (4.5-5.3)
[2018-04-22] MEDS: IPRATROPIUM-ALBUTEROL 3 ML NEB INHALATION SCH ×4 (07:24→19:41)
[2018-04-22 07:32] LABS: Glucose,Whole Blood 121 mg/dL (75-99)
[2018-04-22 07:37] LABS: ALT 28 U/L (21-72); AST 54 U/L (17-59); Albumin 3.3 g/dL (3.5-5.0); Alkaline Phosphatase 67 U/L (38-126); Anion Gap 5 mmol/L; Blood Urea Nitrogen 23 mg/dL (9-20); Carbon Dioxide 28 mmol/L (22-30); Chloride 108 mmol/L (98-107); Glucose 122 mg/dL (74-99); Potassium 4.9 mmol/L (3.5-5.1); Sodium 141 mmol/L (137-145); Total Bilirubin 0.4 mg/dL (0.2-1.3); Total Protein 5.4 g/dL (6.3-8.2)
[2018-04-22] MEDS: HYDROcodone/APAP 5-325MG 1 EACH TAB PO PRN ×2 (07:58→11:52)
[2018-04-22] MEDS: PANTOPRAZOLE 40 MG TABLET PO SCH (09:41)
[2018-04-22] MEDS: ATORVASTATIN 40 MG TAB PO SCH (09:43)
[2018-04-22] MEDS: METOPROLOL TARTRATE 12.5 MG TAB PO SCH (09:43)
[2018-04-22] MEDS: MUPIROCIN 2% OINT 22 GM TUBE NASAL SCH ×2 (09:43→20:33)
[2018-04-22] MEDS: ASPIRIN 325 MG TAB PO SCH (09:43)
[2018-04-22] MEDS: CLOPIDOGREL 75 MG TAB PO SCH (09:43)
[2018-04-22] MEDS ORDERED: METOPROLOL TARTRATE 12.5 MG TAB PO STA (10:10)
[2018-04-22] MEDS ORDERED: FUROSEMIDE 10 MG/ML 2 ML VIAL IV ONE (10:12)
--- NOTE | 2018-04-22 11:34 | P.PN ---
Subjective Progress Note Date: 04/22/18 Principal diagnosis: Unstable angina, triple-vessel coronary artery disease. Previous medical history of hypertension, hyperlipidemia, current tobacco dependence with preoperative FEV1 111% of predicted, bilateral internal carotid artery stenosis 50-79%, basal cell skin cancer, superior mesenteric artery stenosis. POD #2 coronary bypass grafting 3 with the left internal mammary to the left anterior descending artery. Reverse saphenous vein graft off the aorta to the high diagonal artery in the posterior ventricular branch of the right coronary artery with endarterectomy of the posterior lateral branch of the RCA with vein patch angioplasty. Clip ligation of the left atrial appendage with a #35 mm AtriClip. Intraoperative transesophageal echocardiogram. Postoperative acute blood loss anemia, unexpected but potential outcome secondary to hemodilution and cardiopulmonary bypass pump. Patient's currently sitting up in a recliner in no acute distress. States pain is well controlled on current medication regimen, denies shortness of breath. Currently hemodynamically stable on no inotropes or pressors. No new complaints. Has been ambulating the hallway with assistance. Objective - Vital Signs Vital signs: Vital Signs Temp 98.5 F 04/22/18 08:00 Pulse 87 04/22/18 11:05 Resp 20 04/22/18 10:00 BP 142/79 04/22/18 10:00 Pulse Ox 97 04/22/18 10:00 Intake & Output 04/21/18 04/22/18 04/22/18 18:59 06:59 18:59 Intake Total 1064.833 276 83 Output Total 880 540 400 Balance 184.833 -264 -317 Weight 66.6 kg 68.7 kg Intake: IV 584 276 83 ACETAMINOPHEN IV (For NPO 200 ) 1,000 mg In Empty Bag 1 bag @ 400 mls/hr IVPB Q6HR JEF Rx#:[id number] Lactated Ringers 1,000 ml 330 240 80 @ 20 mls/hr IV .Q24H JEF Rx#:[id number] Pressure Bag 54 36 3 Intake, IV Titration 0.833 Amount Clevidipine Butyrate 25 0.833 mg In Empty Bag 1 bag @ 1 MG/HR 2 mls/hr IV .Q24H JEF Rx#:[id number] Oral 480 Output: Chest Tube Drainage 440 80 260 Left and Right Pleural 260 20 200 Mediastinal 180 60 60 Urine 440 460 140 Other: Voiding Method Indwelling Catheter Indwelling Catheter ABP, PAP, CO, CI - Last Documented Arterial Blood Pressure 126/64 Pulmonary Artery Pressure 22/8 Cardiac Output 4.5 Cardiac Index 2.6 - Constitutional General appearance: Present: cooperative, no acute distress - Respiratory Details: Lungs sounds diminished bilaterally. Respirations even, nonlabored. Currently on 6 L nasal cannula with oxygen saturation 92%. Able to achieve 500-750 and his incentive spirometry. Strong cough. Mediastinal chest tubes to continuous wall suction, 80 mL serosanguineous drainage overnight, 240 mL in the last 24 hours. Right/left pleural chest tube to continuous wall suction, 160 mL serosanguineous drainage overnight, 280 mL in the last 24 hours. No air leaks present. - Cardiovascular Details: S1, S2 present. Regular rate and rhythm, sinus rhythm on telemetry. Sternum stable. A/V epicardial pacemaker wires present, connected to generator, VVI mode with backup rate 50 bpm. Palpable peripheral pulses bilaterally. No edema present. No calf pain or tenderness noted. Right internal jugular Cordis present. Heart hugger placed patient demonstrating appropriate use. Antiembolism stockings, SCDs present. - Gastrointestinal Gastrointestinal Comment(s): Abdomen soft, nontender, nondistended. Active bowel sounds 4 quadrants. Tolerating diet. Negative flatus. - Genitourinary Genitourinary Comment(s): Nagel present draining clear, yellow urine. Output 30-50 mL per hour overnight. - Integumentary Integumentary Comment(s): Skin is warm and dry with evidence of good perfusion. Anterior chest incision well approximated and covered with dry intact dressing. Left lower extremity EVH site well approximated. - Neurologic Neurologic: Present: CNII-XII intact - Musculoskeletal Musculoskeletal: Present: gait normal, strength equal bilaterally - Psychiatric Psychiatric: Present: A&O x's 3, appropriate affect, intact judgment & insight - Allied health notes Allied health notes reviewed: nursing - Labs CBC & Chem 7: 04/22/18 06:30 04/22/18 06:30 Labs: Abnormal Lab Results - Last 24 Hours (Table) 04/21/18 04/21/18 04/21/18 Range/Units 11:52 17:11 20:50 WBC (3.8-10.6) k/uL RBC (4.30-5.90) m/uL Hgb (13.0-17.5) gm/dL Hct (39.0-53.0) % Plt Count (150-450) k/uL Neutrophils # (1.3-7.7) k/uL Chloride (98-107) mmol/L BUN (9-20) mg/dL Glucose (74-99) mg/dL POC Glucose (mg/dL) 155 H 125 H 160 H (75-99) mg/dL Total Protein (6.3-8.2) g/dL Albumin (3.5-5.0) g/dL 04/22/18 04/22/18 04/22/18 Range/Units 01:19 06:30 06:30 WBC 16.9 H (3.8-10.6) k/uL RBC 2.83 L (4.30-5.90) m/uL Hgb 8.9 L (13.0-17.5) gm/dL Hct 27.8 L (39.0-53.0) % Plt Count 86 L (150-450) k/uL Neutrophils # 14.1 H (1.3-7.7) k/uL Chloride 108 H (98-107) mmol/L BUN 23 H (9-20) mg/dL Glucose 122 H (74-99) mg/dL POC Glucose (mg/dL) 127 H (75-99) mg/dL Total Protein 5.4 L (6.3-8.2) g/dL Albumin 3.3 L (3.5-5.0) g/dL 04/22/18 04/22/18 Range/Units 06:59 07:07 WBC (3.8-10.6) k/uL RBC (4.30-5.90) m/uL Hgb (13.0-17.5) gm/dL Hct (39.0-53.0) % Plt Count (150-450) k/uL Neutrophils # (1.3-7.7) k/uL Chloride (98-107) mmol/L BUN (9-20) mg/dL Glucose (74-99) mg/dL POC Glucose (mg/dL) 129 H 121 H (75-99) mg/dL Total Protein (6.3-8.2) g/dL Albumin (3.5-5.0) g/dL - Imaging and Cardiology Chest x-ray: report reviewed, image reviewed Assessment and Plan (1) Coronary artery disease Current Visit: Yes Status: Chronic Code(s): I25.10 - ATHSCL HEART DISEASE OF [place] CORONARY ARTERY W/O ANG PCTRS SNOMED Code(s): 03125280 (2) Tobacco dependence Current Visit: Yes Status: Chronic Code(s): F17.200 - NICOTINE DEPENDENCE, UNSPECIFIED, UNCOMPLICATED SNOMED Code(s): 23962639 (3) Hypertension Current Visit: Yes Status: Chronic Code(s): I10 - ESSENTIAL (PRIMARY) HYPERTENSION SNOMED Code(s): 28394896 (4) Hyperlipidemia Current Visit: Yes Status: Chronic Code(s): E78.5 - HYPERLIPIDEMIA, UNSPECIFIED SNOMED Code(s): 22732208 (5) Bilateral carotid artery stenosis Current Visit: Yes Status: Chronic Code(s): I65.23 - OCCLUSION AND STENOSIS OF BILATERAL CAROTID ARTERIES SNOMED Code(s): 36412456 (6) Mesenteric artery stenosis Current Visit: Yes Status: Chronic Code(s): K55.1 - CHRONIC VASCULAR DISORDERS OF INTESTINE SNOMED Code(s): 252589258 Plan: 1. Continue aspirin, statin, Plavix, beta cierra therapy. Will increase beta cierra therapy as tolerated. 2. Wean O2 as tolerated. Encourage incentive spirometry 10 times every hour while awake. 3. Encourage smoking cessation. 4. Bronchodilators per pulmonology. 5. Increase activity, ambulate as tolerated. PT/OT/cardiac rehab following. 6. Will discontinue mediastinal chest tubes. Keep pleural chest tubes for another 24 hours. 7. Will give 20 mg IV Lasix today. Discontinue Nagel catheter after diuresis. 8. Pain controlled current medication regimen. 9. Will monitor daily labs and x-rays. No transfusion. 10. Insulin management per primary care service. 11. GI prophylaxis with Protonix. DVT prophylaxis with subcu heparin, SCDs. 12. More recommendations to follow. Time with Patient: Greater than 30
[2018-04-22] MEDS: LACTATED RINGERS 1,000 ML IV SCH (11:59)
[2018-04-22 12:10] LABS: Glucose,Whole Blood 128 mg/dL (75-99)
--- NOTE | 2018-04-22 12:45 | ECHOF ---
Referral Reason: LV function MEASUREMENTS -------- HEIGHT: 162.6 cm WEIGHT: 66.2 kg BP: 141/79 RVIDd: 2.6 cm (< 3.3) IVSd: 1.2 cm (0.6 - 1.1) LVIDd: 3.6 cm (3.9 - 5.3) LVPWd: 1.2 cm (0.6 - 1.1) IVSs: 1.7 cm LVIDs: 3.0 cm LVPWs: 1.9 cm LA Diam: 3.1 cm (2.7 - 3.8) LAESV Index (A-L): 23.95 ml/m Ao Diam: 3.4 cm (2.0 - 3.7) AV Cusp: 2.4 cm (1.5 - 2.6) EPSS: 1.9 cm MV E Stuart: 0.89 m/s MV DecT: 179 ms MV A Stuart: 0.76 m/s MV E/A Ratio: 1.17 MV EF SLOPE: 105.51 mm/s (70 - 150) MV EXCURSION: 1.70 cm (> 18.000) FINDINGS -------- Sinus rhythm. This was a technically adequate study. The left ventricular size is normal. There is borderline concentric left ventricular hypertrophy. Overall left ventricular systolic function is normal with, an EF between 55 - 60 %. The right ventricle is normal in size. Normal LA size by volume 22+/-6 ml/m2. The right atrium is normal in size. There is mild aortic valve sclerosis. Mild mitral annular calcification present. Mild mitral regurgitation is present. The tricuspid valve appears structurally normal. The pulmonic valve was not well visualized. There is no pulmonic regurgitation present. The aortic root size is normal. There is no pericardial effusion. CONCLUSIONS -------- 1. Sinus rhythm. 2. This was a technically adequate study. 3. The left ventricular size is normal. 4. There is borderline concentric left ventricular hypertrophy. 5. Overall left ventricular systolic function is normal with, an EF between 55 - 60 %. 6. Normal LA size by volume 22+/-6 ml/m2. 7. There is mild aortic valve sclerosis. 8. Mild mitral annular calcification present. 9. Mild mitral regurgitation is present. 10. The tricuspid valve appears structurally normal. 11. The pulmonic valve was not well visualized. 12. There is no pulmonic regurgitation present. 13. The aortic root size is normal. 14. There is no pericardial effusion. TH[employer] GRADE TEACHER: CLAUDIA Wylie
--- NOTE | 2018-04-22 12:54 | P.PN ---
Subjective Progress Note Date: 04/22/18 Principal diagnosis: Status post CABG, postoperative day #2 This is a 67-year-old white male presented back on 02/18/20182 hour ER with abdominal and chest discomfort. Apparently the patient has been complaining of these symptoms for [place] of time, and prior to this last ER evaluation, patient was seen in [facility] and transferred to [facility] and cardiac catheterization was done, and it showed significant coronary artery disease, there was also evidence of mesenteric artery ischemia. Patient was at [facility] for almost a week, and no significant intervention was done. On 2017, presented to our ER, and he was having mostly abdominal pain, decreased appetite, 7 pound weight loss, and arrangements were made for the patient to be transferred to [facility]. Patient underwent stenting of the superior mesenteric artery at [facility], and he was eventually seen by cardiothoracic surgery and while at [facility], and his previous cardiac catheterization was reviewed, patient was advised elective myocardial revascularization. Today the patient underwent three-vessel bypass surgery, postoperatively he was on mechanical ventilation, and this consult was initiated. Presently he is on tidal volume of 500, assist control rate of 14, FiO2 of 50%, and PEEP of 5. Chest x-ray was reviewed, ABG was reviewed, and I discussed his condition with his at bedside. Patient is presently sedated , on mechanical ventilation. Reevaluated today on 04/21/2018, patient was extubated last night uneventfully, he is status post CABG with PRO to LAD, RSV to diagonal artery,, posterior ventricular branch of the right coronary artery, patient was extubated a few hours after his surgery uneventfully last night. Today the patient is doing well, relatively asymptomatic, no cough no wheezing no shortness of breath. Chest x-ray was reviewed, and it showed bibasilar atelectasis, and small left pleural effusion, as expected after surgery. All labs were reviewed, WBC count of 17.4 hemoglobin is 9.0 electrolytes and renal profile are normal. Reevaluated today on 04/22/2018, patient is sitting at a bedside chair, in no distress, continues to have [address] bilaterally. Asymptomatic, no cough no wheezing no shortness of breath. Chest x-ray is reassuring, minimal bibasilar atelectasis is noted and that is expected. Labs were all reviewed including CBC and basic metabolic profile. WBC count is a bit elevated at 16.9, hemoglobin is 8.9. Objective - Vital Signs Vital signs: Vital Signs Temp 98.5 F 04/22/18 12:00 Pulse 83 04/22/18 12:00 Resp 17 04/22/18 12:00 BP 143/81 04/22/18 12:00 Pulse Ox 96 04/22/18 12:00 Intake & Output 04/21/18 04/22/18 04/22/18 18:59 06:59 18:59 Intake Total 1064.833 276 123 Output Total 880 540 560 Balance 184.833 -264 -437 Weight 66.6 kg 68.7 kg Intake: IV 584 276 123 ACETAMINOPHEN IV (For NPO 200 ) 1,000 mg In Empty Bag 1 bag @ 400 mls/hr IVPB Q6HR JEF Rx#:[id number] Lactated Ringers 1,000 ml 330 240 120 @ 20 mls/hr IV .Q24H JEF Rx#:[id number] Pressure Bag 54 36 3 Intake, IV Titration 0.833 Amount Clevidipine Butyrate 25 0.833 mg In Empty Bag 1 bag @ 1 MG/HR 2 mls/hr IV .Q24H JEF Rx#:[id number] Oral 480 Output: Chest Tube Drainage 440 80 340 Left and Right Pleural 260 20 260 Mediastinal 180 60 80 Urine 440 460 220 Other: Voiding Method Indwelling Catheter Indwelling Catheter ABP, PAP, CO, CI - Last Documented Arterial Blood Pressure 126/64 Pulmonary Artery Pressure 22/8 Cardiac Output 4.5 Cardiac Index 2.6 - Exam Physical Exam: Revealed a 67-year-old white male in no distress. On few liters nasal cannula. Head: Atraumatic, normocephalic. HEENT:[Neck is supple.] [No neck masses.] [No thyromegaly.] [No JVD.], Moist mucous membranes. Surgical scar noted lateral to the left nostril, had a recent skin cancer removed. Chest: [Diminished breath sounds at the bases no crackles or rhonchi or wheezes. Chest tubes on both sides were noted to be intact. Surgical site is clean.] Cardiac Exam: [Normal S1 and S2, no S3 gallop, no murmur.] Abdomen: [Soft, nontender, no megaly, no rebound, no guarding, normal bowel sounds.] Extremities: [No clubbing, no edema, no cyanosis.] Neurological Exam: [No focal neurologic deficit.] Psychiatric: Normal mood, affect and mental status examination. - Labs CBC & Chem 7: 18 06:30 18 06:30 Labs: Abnormal Lab Results - Last 24 Hours (Table) 04/21/18 04/21/18 04/22/18 Range/Units 17:11 20:50 01:19 WBC (3.8-10.6) k/uL RBC (4.30-5.90) m/uL Hgb (13.0-17.5) gm/dL Hct (39.0-53.0) % Plt Count (150-450) k/uL Neutrophils # (1.3-7.7) k/uL Chloride (98-107) mmol/L BUN (9-20) mg/dL Glucose (74-99) mg/dL POC Glucose (mg/dL) 125 H 160 H 127 H (75-99) mg/dL Total Protein (6.3-8.2) g/dL Albumin (3.5-5.0) g/dL 04/22/18 04/22/18 04/22/18 Range/Units 06:30 06:30 06:59 WBC 16.9 H (3.8-10.6) k/uL RBC 2.83 L (4.30-5.90) m/uL Hgb 8.9 L (13.0-17.5) gm/dL Hct 27.8 L (39.0-53.0) % Plt Count 86 L (150-450) k/uL Neutrophils # 14.1 H (1.3-7.7) k/uL Chloride 108 H (98-107) mmol/L BUN 23 H (9-20) mg/dL Glucose 122 H (74-99) mg/dL POC Glucose (mg/dL) 129 H (75-99) mg/dL Total Protein 5.4 L (6.3-8.2) g/dL Albumin 3.3 L (3.5-5.0) g/dL 04/22/18 04/22/18 Range/Units 07:07 12:07 WBC (3.8-10.6) k/uL RBC (4.30-5.90) m/uL Hgb (13.0-17.5) gm/dL Hct (39.0-53.0) % Plt Count (150-450) k/uL Neutrophils # (1.3-7.7) k/uL Chloride (98-107) mmol/L BUN (9-20) mg/dL Glucose (74-99) mg/dL POC Glucose (mg/dL) 121 H 128 H (75-99) mg/dL Total Protein (6.3-8.2) g/dL Albumin (3.5-5.0) g/dL Assessment and Plan Assessment: Impression: 1 status post CABG, three-vessel bypass surgery, postoperative day # 2, uneventful postoperative course so far, patient was extubated within a few hours after his surgery. 2 postoperative atelectasis, expected after surgery. 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 5 triple-vessel coronary artery disease. Recommendation: Continue incentive spirometry, bronchodilators, ambulate, continue cardiac meds as listed. We'll continue to follow. Chest x-ray was reviewed and discussed with the patient. Time with Patient: Less than 30
[2018-04-22] MEDS: CLEVIDIPINE BUTYRATE 25 MG in EMPTY BAG 1 BAG IV SCH (14:20)
--- NOTE | 2018-04-22 16:29 | P.PN ---
Subjective Progress Note Date: 04/22/18 Principal diagnosis: Medical management post CABG Patient seen and examined. No acute events overnight. Patient reports generalized aches and pains. He denies any chest pain, shortness of breath or palpitations. No changes in urination or bowel habits. Pain well-controlled with [place]. Objective - Vital Signs Vital signs: Vital Signs Temp 98.2 F 04/22/18 16:00 Pulse 85 04/22/18 16:14 Resp 20 04/22/18 16:00 BP 112/72 04/22/18 15:00 Pulse Ox 97 04/22/18 16:00 Intake & Output 04/21/18 04/22/18 04/22/18 18:59 06:59 18:59 Intake Total 1064.833 276 203 Output Total 460 345 4246 Balance 184.333 -202 -797 Weight 66.6 kg 68.7 kg Intake: IV 584 276 203 ACETAMINOPHEN IV (For NPO 200 ) 1,000 mg In Empty Bag 1 bag @ 400 mls/hr IVPB Q6HR JEF Rx#:[id number] Lactated Ringers 1,000 ml 330 240 200 @ 20 mls/hr IV .Q24H JEF Rx#:[id number] Pressure Bag 54 36 3 Intake, IV Titration 0.833 Amount Clevidipine Butyrate 25 0.833 mg In Empty Bag 1 bag @ 1 MG/HR 2 mls/hr IV .Q24H JEF Rx#:[id number] Oral 480 Output: Chest Tube Drainage 440 80 350 Left and Right Pleural 260 20 270 Mediastinal 180 60 80 Urine 440 460 650 Other: Voiding Method Indwelling Catheter Indwelling Catheter Indwelling Catheter ABP, PAP, CO, CI - Last Documented Arterial Blood Pressure 126/64 Pulmonary Artery Pressure 22/8 Cardiac Output 4.5 Cardiac Index 2.6 - Exam General: [non toxic], [no distress], [appears at stated age], [6L NC] Derm: [warm], [dry] Head: [atraumatic], [normocephalic], [symmetric], [right IJ] Eyes: [EOMI], [no lid lag], [anicteric sclera] Mouth: [no lip lesion], [mucus membranes moist] Cardiovascular: [S1S2 reg], [systolic murmur], [positive DP pulse bilateral], [ heart hugger, chest tubes in place] Lungs: [Decreased breath sounds bilateral], [no rhonchi, no rales] , [no accessory muscle use] Abdominal: [soft], [ nontender to palpation], [no guarding], [no appreciable organomegaly] Ext: [no gross muscle atrophy], [no edema], [no contractures] Neuro: [no focal neuro deficits] Psych: [Alert], [oriented], [appropriate affect] - Labs CBC & Chem 7: 04/22/18 06:30 04/22/18 06:30 Labs: Abnormal Lab Results - Last 24 Hours (Table) 04/21/18 04/21/18 04/22/18 Range/Units 17:11 20:50 01:19 WBC (3.8-10.6) k/uL RBC (4.30-5.90) m/uL Hgb (13.0-17.5) gm/dL Hct (39.0-53.0) % Plt Count (150-450) k/uL Neutrophils # (1.3-7.7) k/uL Chloride (98-107) mmol/L BUN (9-20) mg/dL Glucose (74-99) mg/dL POC Glucose (mg/dL) 125 H 160 H 127 H (75-99) mg/dL Total Protein (6.3-8.2) g/dL Albumin (3.5-5.0) g/dL 04/22/18 04/22/18 04/22/18 Range/Units 06:30 06:30 06:59 WBC 16.9 H (3.8-10.6) k/uL RBC 2.83 L (4.30-5.90) m/uL Hgb 8.9 L (13.0-17.5) gm/dL Hct 27.8 L (39.0-53.0) % Plt Count 86 L (150-450) k/uL Neutrophils # 14.1 H (1.3-7.7) k/uL Chloride 108 H (98-107) mmol/L BUN 23 H (9-20) mg/dL Glucose 122 H (74-99) mg/dL POC Glucose (mg/dL) 129 H (75-99) mg/dL Total Protein 5.4 L (6.3-8.2) g/dL Albumin 3.3 L (3.5-5.0) g/dL 04/22/18 04/22/18 Range/Units 07:07 12:07 WBC (3.8-10.6) k/uL RBC (4.30-5.90) m/uL Hgb (13.0-17.5) gm/dL Hct (39.0-53.0) % Plt Count (150-450) k/uL Neutrophils # (1.3-7.7) k/uL Chloride (98-107) mmol/L BUN (9-20) mg/dL Glucose (74-99) mg/dL POC Glucose (mg/dL) 121 H 128 H (75-99) mg/dL Total Protein (6.3-8.2) g/dL Albumin (3.5-5.0) g/dL Assessment and Plan Assessment: Assessment and Plan 1. Coronary artery disease: s/p triple vessel CABG 04/20/2018, POD 2. On 6L NC. Pain management with Tylenol IV, Toradol IV, Oxycodone PRN and [place] PRN. Continue ASA 325 mg PO QD, Plavix 75 mg PO QD Lipitor 40 mg PO QHS. Continue Metoprolol 12.5 mg PO BID, Clevidipine. DC insulin drip as per protocol. Heart hugger. Incentive spirometry. Telemetry monitoring. Chest tube removal as per CT surgery recommendations. CVP and VS monitoring (MAP > 65). Echocardiogram shows an EF of 55-60% with LVH. Daily CXR. FU CT Surgery, PT/OT, Cardiology consult 2. Acute anemia: Expected blood loss from surgery. Hg 9.2 to 9.0 to 8.9 this morning, stable. Daily CBC. Transfuse if Hg < 7.0. 3. Thrombocytopenia: Plt 72 on admission to 104 to 86 today. Unsure of cause. Daily CBC, monitor due to use of Heparin. FU Hep panel 4. Hypertension: BP 142/82. Continue Metoprolol and Clevidine. Monitor vitals, adjust medications as necessary. 5. Transamininitis: AST 68 (T.Bili, ALT and ALK-P is within normal limits. Possibly EtOH or medication induced. FU Hep panel 6. Probable COPD: Stable. Continue DuoNeb PRN for SOB/wheezing. Would benefit from controlled medication prior to DC. O2 per NC to maintain O2 sat > 92%. 7. DVT/GI Prophylaxis: Heparin 5000 units TID, Protonix 40 mg PO QAM. Discussed with [employer] Patricia, mediastinal tubes out today pleural to be taken out tomorrow. Pain is well controlled. We'll continue to follow. Thank you for the consult.
[2018-04-22 17:33] LABS: Glucose,Whole Blood 130 mg/dL (75-99)
[2018-04-22 19:25] LABS: Hepatitis A Antibody IgM Non-Reactive (Non-Reactive); Hepatitis B Core IgM Non-Reactive (Non-Reactive)
[2018-04-22] MEDS: METOPROLOL TARTRATE 25 MG TAB PO SCH (20:33)
[2018-04-22] MEDS: SENNOSIDES-DOCUSATE SODIUM 1 EACH TAB PO SCH (20:33)
[2018-04-22 21:14] LABS: Glucose,Whole Blood 156 mg/dL (75-99)
[2018-04-23] MEDS: HEPARIN SODIUM,PORCINE 5,000 UNIT/ML 1 ML VIAL SQ SCH ×3 (00:45→17:00)
[2018-04-23] MEDS: HYDROcodone/APAP 5-325MG 1 EACH TAB PO PRN ×4 (01:21→18:22)
[2018-04-23 02:20] LABS: Glucose,Whole Blood 147 mg/dL (75-99)
[2018-04-23] MEDS: INSULIN ASPART 100 UNIT/ML 1 ML 10 ML VIAL SQ SCH ×5 (03:27→22:52)
[2018-04-23] MEDS: KETOROLAC 30 MG/ML 1 ML VIAL IVP SCH ×4 (03:27→22:53)
[2018-04-23 04:05] LABS: Basophils % (A) 0 %; Eosinophils # (A) 0.3 k/uL (0-0.7); Eosinophils % (A) 3 %; HCT 25.5 % (39.0-53.0); HGB 8.2 gm/dL (13.0-17.5); Lymphocytes # (A) 1.4 k/uL (1.0-4.8); Lymphocytes % (A) 11 %; MCH 31.5 pg (25.0-35.0); MCHC 32.1 g/dL (31.0-37.0); MCV 98.2 fL (80.0-100.0); Monocytes # (A) 0.6 k/uL (0-1.0); Monocytes % (A) 5 %; Neutrophils # (A) 10.1 k/uL (1.3-7.7); Neutrophils % (A) 80 %; RBC 2.59 m/uL (4.30-5.90); RDW 14.4 % (11.5-15.5); WBC 12.6 k/uL (3.8-10.6)
[2018-04-23 04:11] LABS: Platelet Count 86 k/uL (150-450)
[2018-04-23 04:25] LABS: ALT 36 U/L (21-72); AST 40 U/L (17-59); Alkaline Phosphatase 68 U/L (38-126); Anion Gap 5 mmol/L; Blood Urea Nitrogen 25 mg/dL (9-20); Calcium 8.6 mg/dL (8.4-10.2); Carbon Dioxide 27 mmol/L (22-30); Chloride 109 mmol/L (98-107); Glucose 100 mg/dL (74-99); Potassium 3.9 mmol/L (3.5-5.1); Sodium 141 mmol/L (137-145); Total Bilirubin 0.5 mg/dL (0.2-1.3); Total Protein 5.2 g/dL (6.3-8.2)
[2018-04-23 07:07] LABS: Glucose,Whole Blood 104 mg/dL (75-99)
--- NOTE | 2018-04-23 07:31 | XR ---
EXAMINATION TYPE: XR chest 1V portable DATE OF EXAM: 04/23/2018 CLINICAL HISTORY: Difficulty breathing progress study. Post open cardiac surgery. TECHNIQUE: Single AP portable upright view of the chest is obtained. COMPARISON: Chest x-ray from one day earlier and older studies. FINDINGS: Bilateral chest tubes are redemonstrated. There is stable right internal jugular cordis sh eath. Sternal wires and mediastinal clips as well as posterior device over superior are all redemonst rated. There is interval removal of mediastinal drainage catheter. Cardiac silhouette size is stable and upper limits of normal with atherosclerotic aorta. Patchy bibas ilar opacity remains present. No sizable pneumothorax is seen bilaterally. Subcutaneous emphysema lef t supraclavicular region is noted. Osseous structures are intact. IMPRESSION: Patchy bibasilar atelectasis and/or infiltrate remains present.
[2018-04-23] MEDS ORDERED: POTASSIUM CHLORIDE ER 20 MEQ TAB.ER PO ONE (08:00)
[2018-04-23] MEDS: IPRATROPIUM-ALBUTEROL 3 ML NEB INHALATION SCH ×4 (08:17→19:54)
--- NOTE | 2018-04-23 08:17 | P.PN ---
Subjective Progress Note Date: 04/23/18 Principal diagnosis: Unstable angina, triple-vessel coronary artery disease. Previous medical history of hypertension, hyperlipidemia, current tobacco dependence with preoperative FEV1 111% of predicted, bilateral internal carotid artery stenosis 50-79%, basal cell skin cancer, superior mesenteric artery stenosis. POD #3 coronary bypass grafting 3 with the left internal mammary to the left anterior descending artery. Reverse saphenous vein graft off the aorta to the high diagonal artery in the posterior ventricular branch of the right coronary artery with endarterectomy of the posterior lateral branch of the RCA with vein patch angioplasty. Clip ligation of the left atrial appendage with a #35 mm AtriClip. Intraoperative transesophageal echocardiogram. Postoperative acute blood loss anemia, unexpected but potential outcome secondary to hemodilution and cardiopulmonary bypass pump. Patient's currently sitting up in a recliner in no acute distress. States pain is well controlled on current medication regimen, denies shortness of breath. Currently hemodynamically stable. No new complaints. Has been ambulating the hallway with assistance. Mediastinal chest tube discontinued yesterday. Transfer orders were placed for 3 S. cardiac stepdown unit, however there is no bed available at this time. Objective - Vital Signs Vital signs: Vital Signs Temp 98.7 F 04/23/18 04:00 Pulse 87 04/23/18 07:00 Resp 20 04/23/18 07:00 BP 107/80 04/23/18 07:00 Pulse Ox 93 L 04/23/18 07:00 Intake & Output 04/22/18 04/23/18 04/23/18 18:59 06:59 18:59 Intake Total 243 200 Output Total 1070 510 Balance -827 -310 Weight 63.3 kg Intake: IV 243 200 Lactated Ringers 1,000 ml 240 200 @ 20 mls/hr IV .Q24H JEF Rx#:[id number] Pressure Bag 3 Output: Chest Tube Drainage 360 140 Left and Right Pleural 280 140 Mediastinal 80 Urine 710 370 Other: Voiding Method Indwelling Catheter Bedside Commode Urinal # Voids 1 ABP, PAP, CO, CI - Last Documented Arterial Blood Pressure 126/64 Pulmonary Artery Pressure 22/8 Cardiac Output 4.5 Cardiac Index 2.6 - Constitutional General appearance: Present: cooperative, no acute distress - Respiratory Details: Lungs sounds diminished bilaterally. Respirations even, nonlabored. Currently on room air with oxygen saturation 95%. Able to achieve 750 mL on his incentive spirometry. Strong cough. Right/left pleural chest tube to continuous wall suction, 140 mL serosanguineous drainage overnight, 300 mL in the last 24 hours. No air leaks present. - Cardiovascular Details: S1, S2 present. Regular rate and rhythm, sinus rhythm on telemetry. Sternum stable. A/V epicardial pacemaker wires present, grounded. Palpable peripheral pulses bilaterally. No edema present. No calf pain or tenderness noted. Right internal jugular Cordis present. Heart hugger in place with patient demonstrating appropriate use. Antiembolism stockings, SCDs present. - Gastrointestinal Gastrointestinal Comment(s): Abdomen soft, nontender, nondistended. Active bowel sounds 4 quadrants. Tolerating diet. Positive flatus, negative bowel movement. - Genitourinary Genitourinary Comment(s): Nag[place] discontinued yesterday. Patient continues to void clear, yellow urine, output last night 250 mL. - Integumentary Integumentary Comment(s): Skin is warm and dry with evidence of good perfusion. Anterior chest incision well approximated and covered with dry intact dressing. Left lower extremity EVH site well approximated. - Neurologic Neurologic: Present: CNII-XII intact - Musculoskeletal Musculoskeletal: Present: gait normal, strength equal bilaterally - Psychiatric Psychiatric: Present: A&O x's 3, appropriate affect, intact judgment & insight - Allied health notes Allied health notes reviewed: nursing - Labs CBC & Chem 7: 04/23/18 03:35 04/23/18 03:35 Labs: Abnormal Lab Results - Last 24 Hours (Table) 04/22/18 04/22/18 04/22/18 Range/Units 12:07 17:21 21:10 WBC (3.8-10.6) k/uL RBC (4.30-5.90) m/uL Hgb (13.0-17.5) gm/dL Hct (39.0-53.0) % Plt Count (150-450) k/uL Neutrophils # (1.3-7.7) k/uL Chloride (98-107) mmol/L BUN (9-20) mg/dL Glucose (74-99) mg/dL POC Glucose (mg/dL) 128 H 130 H 156 H (75-99) mg/dL Total Protein (6.3-8.2) g/dL Albumin (3.5-5.0) g/dL 04/23/18 04/23/18 04/23/18 Range/Units 02:17 03:35 03:35 WBC 12.6 H (3.8-10.6) k/uL RBC 2.59 L (4.30-5.90) m/uL Hgb 8.2 L (13.0-17.5) gm/dL Hct 25.5 L (39.0-53.0) % Plt Count 86 L (150-450) k/uL Neutrophils # 10.1 H (1.3-7.7) k/uL Chloride 109 H (98-107) mmol/L BUN 25 H (9-20) mg/dL Glucose 100 H (74-99) mg/dL POC Glucose (mg/dL) 147 H (75-99) mg/dL Total Protein 5.2 L (6.3-8.2) g/dL Albumin 3.0 L (3.5-5.0) g/dL 04/23/18 Range/Units 07:03 WBC (3.8-10.6) k/uL RBC (4.30-5.90) m/uL Hgb (13.0-17.5) gm/dL Hct (39.0-53.0) % Plt Count (150-450) k/uL Neutrophils # (1.3-7.7) k/uL Chloride (98-107) mmol/L BUN (9-20) mg/dL Glucose (74-99) mg/dL POC Glucose (mg/dL) 104 H (75-99) mg/dL Total Protein (6.3-8.2) g/dL Albumin (3.5-5.0) g/dL - Imaging and Cardiology Chest x-ray: report reviewed, image reviewed Assessment and Plan (1) Coronary artery disease Current Visit: Yes Status: Chronic Code(s): I25.10 - ATHSCL HEART DISEASE OF [place] CORONARY ARTERY W/O ANG PCTRS SNOMED Code(s): 11571982 (2) Tobacco dependence Current Visit: Yes Status: Chronic Code(s): F17.200 - NICOTINE DEPENDENCE, UNSPECIFIED, UNCOMPLICATED SNOMED Code(s): 12385096 (3) Hypertension Current Visit: Yes Status: Chronic Code(s): I10 - ESSENTIAL (PRIMARY) HYPERTENSION SNOMED Code(s): 72420579 (4) Hyperlipidemia Current Visit: Yes Status: Chronic Code(s): E78.5 - HYPERLIPIDEMIA, UNSPECIFIED SNOMED Code(s): 24511755 (5) Bilateral carotid artery stenosis Current Visit: Yes Status: Chronic Code(s): I65.23 - OCCLUSION AND STENOSIS OF BILATERAL CAROTID ARTERIES SNOMED Code(s): 79081963 (6) Mesenteric artery stenosis Current Visit: Yes Status: Chronic Code(s): K55.1 - CHRONIC VASCULAR DISORDERS OF INTESTINE SNOMED Code(s): 423524617 Plan: 1. Continue aspirin, statin, Plavix, beta cierra therapy. Will increase beta cierra therapy as tolerated. 2. Encourage incentive spirometry 10 times every hour while awake. 3. Encourage smoking cessation. 4. Bronchodilators per pulmonology. 5. Increase activity, ambulate as tolerated. PT/OT/cardiac rehab following. 6. Likely will discontinue pleural chest tubes. 7. Will give Lasix 20 mg IV push 1. 8. Pain controlled current medication regimen. 9. Will monitor daily labs and x-rays. No transfusion. 10. Insulin management per primary care service. 11. GI prophylaxis with Protonix. DVT prophylaxis with subcu heparin, SCDs. 12. Transfer orders placed for 3 S. cardiac stepdown unit. May transfer when bed available. 13. More recommendations to follow. Time with Patient: Greater than 30
--- NOTE | 2018-04-23 08:42 | PN ---
PROGRESS NOTE Mr. Kerr is status post bypass surgery. He is doing very well. Vital signs are stable. S1, S2 heard normally. Short systolic murmur noted. Lungs are clear. Abdomen and lower extremity exam unchanged. Plan is to continue incentive spirometry, pulmonary toilet and hopefully the chest tubes will come out today. MMODL / IJN: [id number] /
[2018-04-23] MEDS: ATORVASTATIN 40 MG TAB PO SCH (08:51)
[2018-04-23] MEDS: METOPROLOL TARTRATE 25 MG TAB PO SCH ×2 (08:51→22:54)
[2018-04-23] MEDS: PANTOPRAZOLE 40 MG TABLET PO SCH (08:52)
[2018-04-23] MEDS: CLOPIDOGREL 75 MG TAB PO SCH (08:53)
[2018-04-23] MEDS: ASPIRIN 325 MG TAB PO SCH (08:53)
[2018-04-23] MEDS: MUPIROCIN 2% OINT 22 GM TUBE NASAL SCH ×2 (08:56→22:52)
--- NOTE | 2018-04-23 09:09 | PN ---
PROGRESS NOTE This Patient underwent aortocoronary bypass surgery. He is doing very well. He is on not on an pressors. His vital signs are stable. Remains in sinus rhythm. S1, S2 heard normally. Short systolic murmur is audible. Lungs reveal improved air entry. Abdomen and lower extremity exam unchanged. I would recommend that we continue incentive spirometry, pulmonary toilet and continue current medications. MMODL / IJN: [id number] / [facility]
[2018-04-23 12:11] LABS: Glucose,Whole Blood 94 mg/dL (75-99)
[2018-04-23] MEDS ORDERED: ACETAMINOPHEN TAB 325 MG TAB PO PRN ×2 (12:30)
--- NOTE | 2018-04-23 14:35 | P.PN ---
Subjective Progress Note Date: 04/23/18 Principal diagnosis: Medical management status post CABG Patient was seen and examined. No acute events overnight. Patient has no complaints today. He denies chest pain, palpitations, shortness of breath. Seen ambulating with PT. Objective - Vital Signs Vital signs: Vital Signs Temp 98.1 F 04/23/18 08:00 Pulse 84 04/23/18 12:00 Resp 21 04/23/18 12:00 BP 100/73 04/23/18 12:00 Pulse Ox 95 04/23/18 12:00 Intake & Output 04/22/18 04/23/18 04/23/18 18:59 06:59 18:59 Intake Total 243 200 100 Output Total 1070 510 0 Balance -827 -310 100 Weight 63.3 kg Intake: IV 243 200 100 Lactated Ringers 1,000 ml 240 200 100 @ 20 mls/hr IV .Q24H JEF Rx#:[id number] Pressure Bag 3 Output: Chest Tube Drainage 360 140 0 Left and Right Pleural 280 140 0 Mediastinal 80 Urine 710 370 Other: Voiding Method Indwelling Catheter Bedside Commode Bedside Commode Urinal Urinal # Voids 1 1 # Bowel Movements 1 ABP, PAP, CO, CI - Last Documented Arterial Blood Pressure 126/64 Pulmonary Artery Pressure 22/8 Cardiac Output 4.5 Cardiac Index 2.6 - Exam General: [non toxic], [no distress], [appears at stated age], [6L NC] Derm: [warm], [dry] Head: [atraumatic], [normocephalic], [symmetric], Eyes: [EOMI], [no lid lag], [anicteric sclera] Mouth: [no lip lesion], [mucus membranes moist] Cardiovascular: [S1S2 reg], [systolic murmur], [positive DP pulse bilateral], [ heart hugger] Lungs: [Decreased breath sounds bilateral], [no rhonchi, no rales] , [no accessory muscle use] Abdominal: [soft], [ nontender to palpation], [no guarding], [no appreciable organomegaly] Ext: [no gross muscle atrophy], [no edema], [no contractures] Neuro: [no focal neuro deficits] Psych: [Alert], [oriented], [appropriate affect] - Labs CBC & Chem 7: 04/23/18 03:35 04/23/18 03:35 Labs: Abnormal Lab Results - Last 24 Hours (Table) 04/22/18 04/22/18 04/23/18 Range/Units 17:21 21:10 02:17 WBC (3.8-10.6) k/uL RBC (4.30-5.90) m/uL Hgb (13.0-17.5) gm/dL Hct (39.0-53.0) % Plt Count (150-450) k/uL Neutrophils # (1.3-7.7) k/uL Chloride (98-107) mmol/L BUN (9-20) mg/dL Glucose (74-99) mg/dL POC Glucose (mg/dL) 130 H 156 H 147 H (75-99) mg/dL Total Protein (6.3-8.2) g/dL Albumin (3.5-5.0) g/dL 04/23/18 04/23/18 04/23/18 Range/Units 03:35 03:35 07:03 WBC 12.6 H (3.8-10.6) k/uL RBC 2.59 L (4.30-5.90) m/uL Hgb 8.2 L (13.0-17.5) gm/dL Hct 25.5 L (39.0-53.0) % Plt Count 86 L (150-450) k/uL Neutrophils # 10.1 H (1.3-7.7) k/uL Chloride 109 H (98-107) mmol/L BUN 25 H (9-20) mg/dL Glucose 100 H (74-99) mg/dL POC Glucose (mg/dL) 104 H (75-99) mg/dL Total Protein 5.2 L (6.3-8.2) g/dL Albumin 3.0 L (3.5-5.0) g/dL Assessment and Plan Assessment: Assessment and Plan 1. Coronary artery disease: s/p triple vessel CABG 04/20/2018, POD 3. Pain management with Tylenol IV, Toradol IV, Oxycodone PRN and [place] PRN. Continue ASA 325 mg PO QD, Plavix 75 mg PO QD Lipitor 40 mg PO QHS. Continue Metoprolol 12.5 mg PO BID. Heart hugger. Incentive spirometry. Telemetry monitoring. CVP and VS monitoring (MAP > 65). Echocardiogram shows an EF of 55-60% with LVH. FU CT Surgery, PT/OT, Cardiology consult 2. Acute anemia: Expected blood loss from surgery. Hg 9.2 to 9.0 to 8.9 to 8.2 this morning, stable. Daily CBC. Transfuse if Hg < 7.0. 3. Thrombocytopenia: Plt 72 on admission to 104 to 86 today. Unsure of cause. Daily CBC, monitor due to use of Heparin. Hep panel negative. 4. Hypertension: BP 100/73. Continue Metoprolol. Monitor vitals, adjust medications as necessary. 5. Transamininitis: AST 68 (T.Bili, ALT and ALK-P is within normal limits. Possibly EtOH or medication induced. Hep panel negative. 6. Probable COPD: Stable. Continue DuoNeb PRN for SOB/wheezing. Would benefit from controlled medication prior to DC. O2 per NC to maintain O2 sat > 92%. 7. DVT/GI Prophylaxis: Heparin 5000 units TID, Protonix 40 mg PO QAM. Pleural tubes taken out today. Pain is well controlled. Patient working with PT. We'll continue to follow. Thank you for the consult.
--- NOTE | 2018-04-23 15:06 | P.PN ---
Subjective Progress Note Date: 04/23/18 Principal diagnosis: Status post CABG, postoperative day #3 This is a 67-year-old white male presented back on 02/18/20182 hour ER with abdominal and chest discomfort. Apparently the patient has been complaining of these symptoms for [place] of time, and prior to this last ER evaluation, patient was seen in [facility] and transferred to [facility] and cardiac catheterization was done, and it showed significant coronary artery disease, there was also evidence of mesenteric artery ischemia. Patient was at [facility] for almost a week, and no significant intervention was done. On 2017, presented to our ER, and he was having mostly abdominal pain, decreased appetite, 7 pound weight loss, and arrangements were made for the patient to be transferred to [facility]. Patient underwent stenting of the superior mesenteric artery at [facility], and he was eventually seen by cardiothoracic surgery and while at [facility], and his previous cardiac catheterization was reviewed, patient was advised elective myocardial revascularization. Today the patient underwent three-vessel bypass surgery, postoperatively he was on mechanical ventilation, and this consult was initiated. Presently he is on tidal volume of 500, assist control rate of 14, FiO2 of 50%, and PEEP of 5. Chest x-ray was reviewed, ABG was reviewed, and I discussed his condition with his at bedside. Patient is presently sedated , on mechanical ventilation. Reevaluated today on 04/21/2018, patient was extubated last night uneventfully, he is status post CABG with PRO to LAD, RSV to diagonal artery,, posterior ventricular branch of the right coronary artery, patient was extubated a few hours after his surgery uneventfully last night. Today the patient is doing well, relatively asymptomatic, no cough no wheezing no shortness of breath. Chest x-ray was reviewed, and it showed bibasilar atelectasis, and small left pleural effusion, as expected after surgery. All labs were reviewed, WBC count of 17.4 hemoglobin is 9.0 electrolytes and renal profile are normal. Reevaluated today on 04/22/2018, patient is sitting at a bedside chair, in no distress, continues to have [address] bilaterally. Asymptomatic, no cough no wheezing no shortness of breath. Chest x-ray is reassuring, minimal bibasilar atelectasis is noted and that is expected. Labs were all reviewed including CBC and basic metabolic profile. WBC count is a bit elevated at 16.9, hemoglobin is 8.9. Reevaluated today on 04/23/2018, patient remains in the ICU, his postoperative day #3. Patient is doing well, asymptomatic, no cough no wheezing no shortness of breath. Chest x-ray was reviewed, minimal bibasilar atelectasis is noted, [address]. Patient is hemodynamically stable, his mediastinal chest tube was discontinued yesterday. Patient will likely be transferred to a stepdown unit today. Objective - Vital Signs Vital signs: Vital Signs Temp 98.1 F 04/23/18 08:00 Pulse 84 04/23/18 12:00 Resp 21 04/23/18 12:00 BP 100/73 04/23/18 12:00 Pulse Ox 95 04/23/18 12:00 Intake & Output 04/22/18 04/23/18 04/23/18 18:59 06:59 18:59 Intake Total 243 200 100 Output Total 1070 510 0 Balance -827 -310 100 Weight 63.3 kg Intake: IV 243 200 100 Lactated Ringers 1,000 ml 240 200 100 @ 20 mls/hr IV .Q24H [facility] Rx#:[id number] Pressure Bag 3 Output: Chest Tube Drainage 360 140 0 Left and Right Pleural 280 140 0 Mediastinal 80 Urine 710 370 Other: Voiding Method Indwelling Catheter Bedside Commode Bedside Commode Urinal Urinal # Voids 1 1 # Bowel Movements 1 ABP, PAP, CO, CI - Last Documented Arterial Blood Pressure 126/64 Pulmonary Artery Pressure 22/8 Cardiac Output 4.5 Cardiac Index 2.6 - Exam Physical Exam: Revealed a 67-year-old white male in no distress. On room air Head: Atraumatic, normocephalic. HEENT:[Neck is supple.] [No neck masses.] [No thyromegaly.] [No JVD.], Moist mucous membranes. Surgical scar noted lateral to the left nostril, had a recent skin cancer removed. Chest: [Diminished breath sounds at the bases no crackles or rhonchi or wheezes. Cardiac Exam: [Normal S1 and S2, no S3 gallop, no murmur.] Abdomen: [Soft, nontender, no megaly, no rebound, no guarding, normal bowel sounds.] Extremities: [No clubbing, no edema, no cyanosis.] Neurological Exam: [No focal neurologic deficit.] Psychiatric: Normal mood, affect and mental status examination. - Labs CBC & Chem 7: 04/23/18 03:35 04/23/18 03:35 Labs: Abnormal Lab Results - Last 24 Hours (Table) 04/22/18 04/22/18 04/23/18 Range/Units 17:21 21:10 02:17 WBC (3.8-10.6) k/uL RBC (4.30-5.90) m/uL Hgb (13.0-17.5) gm/dL Hct (39.0-53.0) % Plt Count (150-450) k/uL Neutrophils # (1.3-7.7) k/uL Chloride (98-107) mmol/L BUN (9-20) mg/dL Glucose (74-99) mg/dL POC Glucose (mg/dL) 130 H 156 H 147 H (75-99) mg/dL Total Protein (6.3-8.2) g/dL Albumin (3.5-5.0) g/dL 04/23/18 04/23/18 04/23/18 Range/Units 03:35 03:35 07:03 WBC 12.6 H (3.8-10.6) k/uL RBC 2.59 L (4.30-5.90) m/uL Hgb 8.2 L (13.0-17.5) gm/dL Hct 25.5 L (39.0-53.0) % Plt Count 86 L (150-450) k/uL Neutrophils # 10.1 H (1.3-7.7) k/uL Chloride 109 H (98-107) mmol/L BUN 25 H (9-20) mg/dL Glucose 100 H (74-99) mg/dL POC Glucose (mg/dL) 104 H (75-99) mg/dL Total Protein 5.2 L (6.3-8.2) g/dL Albumin 3.0 L (3.5-5.0) g/dL Assessment and Plan Assessment: Impression: 1 status post CABG, three-vessel bypass surgery, postoperative day #3. Doing quite well. 2 postoperative atelectasis, expected after surgery. 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 5 triple-vessel coronary artery disease. Recommendation: Continue incentive spirometry, bronchodilators, ambulate, continue cardiac meds as listed. Reviewed and discussed chest x-ray with the patient and his family at bedside. Agree with transfer to a monitor bed on selective. Time with Patient: Less than 30
[2018-04-23 16:57] LABS: Glucose,Whole Blood 119 mg/dL (75-99)
[2018-04-23 21:03] LABS: Glucose,Whole Blood 204 mg/dL (75-99)
[2018-04-23] MEDS: SENNOSIDES-DOCUSATE SODIUM 1 EACH TAB PO SCH (21:22)
[2018-04-24] MEDS: HEPARIN SODIUM,PORCINE 5,000 UNIT/ML 1 ML VIAL SQ SCH ×2 (01:44→08:50)
[2018-04-24 01:52] LABS: Glucose,Whole Blood 109 mg/dL (75-99)
[2018-04-24 05:05] LABS: Basophils % (A) 0 %; Eosinophils # (A) 0.5 k/uL (0-0.7); Eosinophils % (A) 6 %; HCT 25.9 % (39.0-53.0); HGB 8.2 gm/dL (13.0-17.5); Hypochromasia Slight; Lymphocytes # (A) 1.3 k/uL (1.0-4.8); Lymphocytes % (A) 14 %; MCH 31.6 pg (25.0-35.0); MCHC 31.6 g/dL (31.0-37.0); Macrocytosis Slight; Mean Platelet Volume 9.1; Monocytes # (A) 0.6 k/uL (0-1.0); Monocytes % (A) 6 %; Neutrophils # (A) 6.6 k/uL (1.3-7.7); Neutrophils % (A) 72 %; Platelet Count 129 k/uL (150-450); RBC 2.59 m/uL (4.30-5.90); RDW 14.3 % (11.5-15.5); WBC 9.2 k/uL (3.8-10.6)
[2018-04-24 05:16] LABS: ALT 33 U/L (21-72); AST 32 U/L (17-59); Albumin 2.9 g/dL (3.5-5.0); Alkaline Phosphatase 66 U/L (38-126); Anion Gap 6 mmol/L; Blood Urea Nitrogen 28 mg/dL (9-20); Calcium 8.4 mg/dL (8.4-10.2); Carbon Dioxide 24 mmol/L (22-30); Chloride 111 mmol/L (98-107); Glucose 104 mg/dL (74-99); Potassium 4.2 mmol/L (3.5-5.1); Sodium 141 mmol/L (137-145); Total Bilirubin 0.4 mg/dL (0.2-1.3); Total Protein 5.1 g/dL (6.3-8.2)
[2018-04-24] MEDS: KETOROLAC 30 MG/ML 1 ML VIAL IVP SCH ×2 (05:53→08:50)
[2018-04-24] MEDS: INSULIN ASPART 100 UNIT/ML 1 ML 10 ML VIAL SQ SCH ×3 (05:53→12:24)
[2018-04-24 06:53] LABS: Glucose,Whole Blood 110 mg/dL (75-99)
[2018-04-24] MEDS: IPRATROPIUM-ALBUTEROL 3 ML NEB INHALATION SCH ×2 (07:57→11:36)
--- NOTE | 2018-04-24 08:28 | PN ---
PROGRESS NOTE Cesar Kerr is a gentleman with aortocoronary bypass surgery, doing very well, recovering nicely. Denies chest pain. Stable functional capacity, has been ambulating without symptoms. Vital signs are stable, no JVD. S1, S2 heard normally, short systolic murmur. Lungs are clear with remarkably good air entry. Abdomen and lower extremity exam unchanged. Plan is to continue current medications, incentive spirometry. Plan for discharge soon. MMODL / IJN: [id number] /
--- NOTE | 2018-04-24 08:34 | P.PN ---
Subjective Progress Note Date: 04/24/18 Principal diagnosis: Unstable angina, triple-vessel coronary artery disease. Previous medical history of hypertension, hyperlipidemia, current tobacco dependence with preoperative FEV1 111% of predicted, bilateral internal carotid artery stenosis 50-79%, basal cell skin cancer, superior mesenteric artery stenosis. POD #4 coronary bypass grafting 3 with the left internal mammary to the left anterior descending artery. Reverse saphenous vein graft off the aorta to the high diagonal artery in the posterior ventricular branch of the right coronary artery with endarterectomy of the posterior lateral branch of the RCA with vein patch angioplasty. Clip ligation of the left atrial appendage with a #35 mm AtriClip. Intraoperative transesophageal echocardiogram. Postoperative acute blood loss anemia, unexpected but potential outcome secondary to hemodilution and cardiopulmonary bypass pump. Patient's currently sitting up in a recliner in no acute distress. States pain is well controlled on current medication regimen, denies shortness of breath. No new complaints. Has been ambulating the hallway with standby assistance. Pleural chest tubes discontinued yesterday. Transfer orders were placed for 3 S. cardiac stepdown unit, however there is no bed available at this time. Objective - Vital Signs Vital signs: Vital Signs Temp 98.3 F 04/24/18 04:00 Pulse 80 04/24/18 08:06 Resp 23 04/24/18 07:00 BP 127/74 04/24/18 07:00 Pulse Ox 94 L 04/24/18 07:00 Intake & Output 04/23/18 04/24/18 04/24/18 18:59 06:59 18:59 Intake Total 740 250 Output Total 0 450 Balance 740 -200 Weight 63.4 kg Intake: IV 100 Lactated Ringers 1,000 ml 100 @ 20 mls/hr IV .Q24H [facility] Rx#:[id number] Oral 640 250 Output: Chest Tube Drainage 0 Left and Right Pleural 0 Urine 450 Other: Voiding Method Bedside Commode Bedside Commode Urinal Urinal # Voids 0 # Bowel Movements 1 ABP, PAP, CO, CI - Last Documented Arterial Blood Pressure 126/64 Pulmonary Artery Pressure 22/8 Cardiac Output 4.5 Cardiac Index 2.6 - Constitutional General appearance: Present: cooperative, no acute distress - Respiratory Details: Lungs sounds diminished bilaterally. Respirations even, nonlabored. Currently on room air with oxygen saturation 91-94%. Able to achieve 750 mL on his incentive spirometry. Strong cough. - Cardiovascular Details: S1, S2 present. Regular rate and rhythm, sinus rhythm on telemetry. Sternum stable. A/V epicardial pacemaker wires present, grounded. Palpable peripheral pulses bilaterally. No edema present. No calf pain or tenderness noted. Heart hugger in place with patient demonstrating appropriate use. Antiembolism stockings, SCDs present. - Gastrointestinal Gastrointestinal Comment(s): Abdomen soft, nontender, nondistended. Active bowel sounds 4 quadrants. Tolerating diet. Positive bowel movement 04/23. - Genitourinary Genitourinary Comment(s): Patient continues to void clear, yellow urine. - Integumentary Integumentary Comment(s): Skin is warm and dry with evidence of good perfusion. Anterior chest incision well approximated and covered with dry intact dressing. Left lower extremity EVH site well approximated. - Neurologic Neurologic: Present: CNII-XII intact - Musculoskeletal Musculoskeletal: Present: gait normal, strength equal bilaterally - Psychiatric Psychiatric: Present: A&O x's 3, appropriate affect, intact judgment & insight - Allied health notes Allied health notes reviewed: nursing - Labs CBC & Chem 7: 04/24/18 04:52 04/24/18 04:52 Labs: Abnormal Lab Results - Last 24 Hours (Table) 04/23/18 04/23/18 04/24/18 Range/Units 16:52 20:42 01:48 RBC (4.30-5.90) m/uL Hgb (13.0-17.5) gm/dL Hct (39.0-53.0) % Plt Count (150-450) k/uL Chloride (98-107) mmol/L BUN (9-20) mg/dL Glucose (74-99) mg/dL POC Glucose (mg/dL) 119 H 204 H 109 H (75-99) mg/dL Total Protein (6.3-8.2) g/dL Albumin (3.5-5.0) g/dL 04/24/18 04/24/18 04/24/18 Range/Units 04:52 04:52 06:50 RBC 2.59 L (4.30-5.90) m/uL Hgb 8.2 L (13.0-17.5) gm/dL Hct 25.9 L (39.0-53.0) % Plt Count 129 L (150-450) k/uL Chloride 111 H (98-107) mmol/L BUN 28 H (9-20) mg/dL Glucose 104 H (74-99) mg/dL POC Glucose (mg/dL) 110 H (75-99) mg/dL Total Protein 5.1 L (6.3-8.2) g/dL Albumin 2.9 L (3.5-5.0) g/dL - Imaging and Cardiology Chest x-ray: report reviewed, image reviewed Assessment and Plan (1) Coronary artery disease Current Visit: Yes Status: Chronic Code(s): I25.10 - ATHSCL HEART DISEASE OF [place] CORONARY ARTERY W/O ANG PCTRS SNOMED Code(s): 44559000 (2) Tobacco dependence Current Visit: Yes Status: Chronic Code(s): F17.200 - NICOTINE DEPENDENCE, UNSPECIFIED, UNCOMPLICATED SNOMED Code(s): 97905877 (3) Hypertension Current Visit: Yes Status: Chronic Code(s): I10 - ESSENTIAL (PRIMARY) HYPERTENSION SNOMED Code(s): 55573112 (4) Hyperlipidemia Current Visit: Yes Status: Chronic Code(s): E78.5 - HYPERLIPIDEMIA, UNSPECIFIED SNOMED Code(s): 02306386 (5) Bilateral carotid artery stenosis Current Visit: Yes Status: Chronic Code(s): I65.23 - OCCLUSION AND STENOSIS OF BILATERAL CAROTID ARTERIES SNOMED Code(s): 33296598 (6) Mesenteric artery stenosis Current Visit: Yes Status: Chronic Code(s): K55.1 - CHRONIC VASCULAR DISORDERS OF INTESTINE SNOMED Code(s): 286109144 Plan: 1. Continue aspirin, statin, Plavix, beta cierra therapy. Will increase beta cierra therapy as tolerated. 2. Encourage incentive spirometry 10 times every hour while awake. 3. Encourage smoking cessation. 4. Bronchodilators per pulmonology. 5. Increase activity, ambulate as tolerated. PT/OT/cardiac rehab following. 6. Pain controlled current medication regimen. 7. Will monitor daily labs and x-rays. No transfusion. 8. Insulin management per primary care service. 9. GI prophylaxis with Protonix. DVT prophylaxis with subcu heparin, SCDs. 10. Will discharge to home with home care today. Time with Patient: Greater than 30
[2018-04-24] MEDS: PANTOPRAZOLE 40 MG TABLET PO SCH (08:50)
[2018-04-24] MEDS: ASPIRIN 325 MG TAB PO SCH (09:50)
[2018-04-24] MEDS: CLOPIDOGREL 75 MG TAB PO SCH (09:50)
[2018-04-24] MEDS: ATORVASTATIN 40 MG TAB PO SCH (09:50)
[2018-04-24] MEDS: METOPROLOL TARTRATE 25 MG TAB PO SCH (09:50)
[2018-04-24] MEDS: MUPIROCIN 2% OINT 22 GM TUBE NASAL SCH (10:14)
--- NOTE | 2018-04-24 10:35 | XR ---
EXAMINATION TYPE: XR chest 1V portable DATE OF EXAM: 04/24/2018 COMPARISON: Prior chest x-ray 04/23/2018 HISTORY: Chest tube removal, postop TECHNIQUE: Single frontal view of the chest is obtained. FINDINGS: Left and right chest tubes have been removed in the interval, right jugular central venous sheath no longer seen. There is no sizable pneumothorax. There are overlying cardiac leads. Postop c hanges status post median sternotomy and atrial appendage clipping again noted. Patchy bibasilar dens ity is again present. IMPRESSION: No evident complication status post chest tube removal. Probable persistent atelectasis, there may be a component of volume overload. Additional follow-up recommended.
[2018-04-24 12:02] VITALS: BP 97/73; PULSE 68; RESP 16; TEMP 97.9
--- NOTE | 2018-04-24 12:22 | P.PN ---
Subjective Progress Note Date: 04/24/18 Principal diagnosis: Medical management post CABG Patient was seen and examined. No acute events overnight. No chest pain, SOB or dizziness. Patient is looking forward to going home. Plans for home with home health. Objective - Vital Signs Vital signs: Vital Signs Temp 97.9 F 04/24/18 12:00 Pulse 68 04/24/18 12:00 Resp 16 04/24/18 12:00 BP 97/73 04/24/18 12:00 Pulse Ox 95 04/24/18 12:00 Intake & Output 04/23/18 04/24/18 04/24/18 18:59 06:59 18:59 Intake Total 740 250 480 Output Total 0 450 0 Balance 740 -200 480 Weight 63.4 kg Intake: IV 100 Lactated Ringers 1,000 ml 100 @ 20 mls/hr IV .Q24H [facility] Rx#:[id number] Oral 640 250 480 Output: Chest Tube Drainage 0 Left and Right Pleural 0 Urine 450 0 Other: Voiding Method Bedside Commode Bedside Commode Urinal Urinal # Voids 0 2 # Bowel Movements 1 ABP, PAP, CO, CI - Last Documented Arterial Blood Pressure 126/64 Pulmonary Artery Pressure 22/8 Cardiac Output 4.5 Cardiac Index 2.6 - Exam General: [non toxic], [no distress], [appears at stated age] Derm: [warm], [dry] Head: [atraumatic], [normocephalic], [symmetric], Eyes: [EOMI], [no lid lag], [anicteric sclera] Mouth: [no lip lesion], [mucus membranes moist] Cardiovascular: [S1S2 reg], [systolic murmur], [positive DP pulse bilateral], [ heart hugger] Lungs: [Decreased breath sounds bilateral with good air entry], [no rhonchi, no rales] , [no accessory muscle use] Abdominal: [soft], [ nontender to palpation], [no guarding], [no appreciable organomegaly] Ext: [no gross muscle atrophy], [no edema], [no contractures] Neuro: [no focal neuro deficits] Psych: [Alert], [oriented], [appropriate affect] - Labs CBC & Chem 7: 04/24/18 04:52 04/24/18 04:52 Labs: Abnormal Lab Results - Last 24 Hours (Table) 04/23/18 04/23/18 04/24/18 Range/Units 16:52 20:42 01:48 RBC (4.30-5.90) m/uL Hgb (13.0-17.5) gm/dL Hct (39.0-53.0) % Plt Count (150-450) k/uL Chloride (98-107) mmol/L BUN (9-20) mg/dL Glucose (74-99) mg/dL POC Glucose (mg/dL) 119 H 204 H 109 H (75-99) mg/dL Total Protein (6.3-8.2) g/dL Albumin (3.5-5.0) g/dL 04/24/18 04/24/18 04/24/18 Range/Units 04:52 04:52 06:50 RBC 2.59 L (4.30-5.90) m/uL Hgb 8.2 L (13.0-17.5) gm/dL Hct 25.9 L (39.0-53.0) % Plt Count 129 L (150-450) k/uL Chloride 111 H (98-107) mmol/L BUN 28 H (9-20) mg/dL Glucose 104 H (74-99) mg/dL POC Glucose (mg/dL) 110 H (75-99) mg/dL Total Protein 5.1 L (6.3-8.2) g/dL Albumin 2.9 L (3.5-5.0) g/dL Assessment and Plan Assessment: Assessment and Plan 1. Coronary artery disease: s/p triple vessel CABG 04/20/2018, POD 4. Pain management with Tylenol IV, Toradol IV, Oxycodone PRN and [place] PRN. Continue ASA 325 mg PO QD, Plavix 75 mg PO QD Lipitor 40 mg PO QHS. Continue Metoprolol 25 mg PO BID. Heart hugger. Incentive spirometry. Telemetry monitoring. CVP and VS monitoring (MAP > 65). Echocardiogram shows an EF of 55-60% with LVH. FU CT Surgery, PT/OT, Cardiology consult 2. Acute anemia: Expected blood loss from surgery. Hg 9.2 to 9.0 to 8.9 to 8.2 x 2 this morning, stable. Daily CBC. Transfuse if Hg < 7.0. 3. Thrombocytopenia: Plt 72 on admission to 104 to 86 to 129 today. Unsure of cause. Daily CBC, monitor due to use of Heparin. Hep panel negative. 4. Hypertension: BP 97/73. Continue Metoprolol. Monitor vitals, adjust medications as necessary. 5. Transamininitis: AST 68 (T.Bili, ALT and ALK-P is within normal limits. Possibly EtOH or medication induced. Hep panel negative. 6. Probable COPD: Stable. Continue DuoNeb scheduled and PRN for SOB/wheezing. Would benefit from controlled medication prior to DC. O2 per NC to maintain O2 sat > 92%. 7. DVT/GI Prophylaxis: Heparin 5000 units TID, Protonix 40 mg PO QAM. Pain is well controlled. Patient working with PT. Plans to go home with home health. Likely discharge today as per Cardiothoracic surgery.
--- NOTE | 2018-04-24 13:16 | P.PN ---
Subjective Progress Note Date: 04/24/18 Principal diagnosis: Status post CABG, postoperative day #4 This is a 67-year-old white male presented back on 02/18/20182 hour ER with abdominal and chest discomfort. Apparently the patient has been complaining of these symptoms for [place] of time, and prior to this last ER evaluation, patient was seen in [facility] and transferred to [facility] and cardiac catheterization was done, and it showed significant coronary artery disease, there was also evidence of mesenteric artery ischemia. Patient was at [facility] for almost a week, and no significant intervention was done. On 2017, presented to our ER, and he was having mostly abdominal pain, decreased appetite, 7 pound weight loss, and arrangements were made for the patient to be transferred to [facility]. Patient underwent stenting of the superior mesenteric artery at [facility], and he was eventually seen by cardiothoracic surgery and while at [facility], and his previous cardiac catheterization was reviewed, patient was advised elective myocardial revascularization. Today the patient underwent three-vessel bypass surgery, postoperatively he was on mechanical ventilation, and this consult was initiated. Presently he is on tidal volume of 500, assist control rate of 14, FiO2 of 50%, and PEEP of 5. Chest x-ray was reviewed, ABG was reviewed, and I discussed his condition with his at bedside. Patient is presently sedated , on mechanical ventilation. Reevaluated today on 04/21/2018, patient was extubated last night uneventfully, he is status post CABG with PRO to LAD, RSV to diagonal artery,, posterior ventricular branch of the right coronary artery, patient was extubated a few hours after his surgery uneventfully last night. Today the patient is doing well, relatively asymptomatic, no cough no wheezing no shortness of breath. Chest x-ray was reviewed, and it showed bibasilar atelectasis, and small left pleural effusion, as expected after surgery. All labs were reviewed, WBC count of 17.4 hemoglobin is 9.0 electrolytes and renal profile are normal. Reevaluated today on 04/22/2018, patient is sitting at a bedside chair, in no distress, continues to have [address] bilaterally. Asymptomatic, no cough no wheezing no shortness of breath. Chest x-ray is reassuring, minimal bibasilar atelectasis is noted and that is expected. Labs were all reviewed including CBC and basic metabolic profile. WBC count is a bit elevated at 16.9, hemoglobin is 8.9. Reevaluated today on 04/23/2018, patient remains in the ICU, his postoperative day #3. Patient is doing well, asymptomatic, no cough no wheezing no shortness of breath. Chest x-ray was reviewed, minimal bibasilar atelectasis is noted, [address]. Patient is hemodynamically stable, his mediastinal chest tube was discontinued yesterday. Patient will likely be transferred to a stepdown unit today. Reevaluated today on 04/24/2018, he is in the ICU, postoperative day #4. Patient is doing great, asymptomatic no cough no wheezing no shortness of breath , his chest x-ray showed interval removal of both chest tubes, and no significant abnormality except for minimal bibasilar atelectasis. Labs including CBC and basic metabolic profile were noted to be normal. Renal profile is normal. Objective - Vital Signs Vital signs: Vital Signs Temp 97.9 F 04/24/18 12:00 Pulse 68 04/24/18 12:00 Resp 16 04/24/18 12:00 BP 97/73 04/24/18 12:00 Pulse Ox 95 04/24/18 12:00 Intake & Output 04/23/18 04/24/18 04/24/18 18:59 06:59 18:59 Intake Total 740 250 480 Output Total 0 450 0 Balance 740 -200 480 Weight 63.4 kg Intake: IV 100 Lactated Ringers 1,000 ml 100 @ 20 mls/hr IV .Q24H [facility] Rx#:[id number] Oral 640 250 480 Output: Chest Tube Drainage 0 Left and Right Pleural 0 Urine 450 0 Other: Voiding Method Bedside Commode Bedside Commode Bedside Commode Urinal Urinal Urinal # Voids 0 2 # Bowel Movements 1 ABP, PAP, CO, CI - Last Documented Arterial Blood Pressure 126/64 Pulmonary Artery Pressure 22/8 Cardiac Output 4.5 Cardiac Index 2.6 - Exam Physical Exam: Revealed a 67-year-old white male in no distress. On room air Head: Atraumatic, normocephalic. HEENT:[Neck is supple.] [No neck masses.] [No thyromegaly.] [No JVD.], Moist mucous membranes. Surgical scar noted lateral to the left nostril, had a recent skin cancer removed. Chest: [Diminished breath sounds at the bases no crackles or rhonchi or wheezes. Cardiac Exam: [Normal S1 and S2, no S3 gallop, no murmur.] Abdomen: [Soft, nontender, no megaly, no rebound, no guarding, normal bowel sounds.] Extremities: [No clubbing, no edema, no cyanosis.] Neurological Exam: [No focal neurologic deficit.] Psychiatric: Normal mood, affect and mental status examination. - Labs CBC & Chem 7: 04/24/18 04:52 04/24/18 04:52 Labs: Abnormal Lab Results - Last 24 Hours (Table) 04/23/18 04/23/18 04/24/18 Range/Units 16:52 20:42 01:48 RBC (4.30-5.90) m/uL Hgb (13.0-17.5) gm/dL Hct (39.0-53.0) % Plt Count (150-450) k/uL Chloride (98-107) mmol/L BUN (9-20) mg/dL Glucose (74-99) mg/dL POC Glucose (mg/dL) 119 H 204 H 109 H (75-99) mg/dL Total Protein (6.3-8.2) g/dL Albumin (3.5-5.0) g/dL 04/24/18 04/24/18 04/24/18 Range/Units 04:52 04:52 06:50 RBC 2.59 L (4.30-5.90) m/uL Hgb 8.2 L (13.0-17.5) gm/dL Hct 25.9 L (39.0-53.0) % Plt Count 129 L (150-450) k/uL Chloride 111 H (98-107) mmol/L BUN 28 H (9-20) mg/dL Glucose 104 H (74-99) mg/dL POC Glucose (mg/dL) 110 H (75-99) mg/dL Total Protein 5.1 L (6.3-8.2) g/dL Albumin 2.9 L (3.5-5.0) g/dL Assessment and Plan Assessment: Impression: 1 status post CABG, three-vessel bypass surgery, postoperative day #4 Doing quite well. 2 postoperative atelectasis, expected after surgery. 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 5 triple-vessel coronary artery disease. Recommendation: Continue incentive spirometry, ambulate patient, agree with discharge planning home today, possibly follow-up with me on outpatient basis. Patient may be discharged home today. Time with Patient: Less than 30
--- NOTE | 2018-04-28 12:24 | P.DS ---
Providers Date of admission: 04/20/18 05:29 Expected date of discharge: 04/24/18 Attending physician: Wesley Olmos Consults: 04/20/18 13:37 Consult Physician Routine Consulting Provider: Allie Vides Consult Reason/Comments: Rustic Terrazzo Setter Consult: post cardiac surgery Do you want consulting provider notified?: Yes 04/20/18 14:30 Consult Physician Routine Consulting Provider: Sebastien Ochoa Consult Reason/Comments: post cardiac surgery Do you want consulting provider notified?: Yes 04/20/18 14:31 Consult Physician Routine Consulting Provider: Miladis Jeffries Consult Reason/Comments: medical management post cardiac surgery Do you want consulting provider notified?: Yes Primary care physician: Hari Zambrano - Discharge Diagnosis(es) (1) Coronary artery disease Status: Chronic (2) Tobacco dependence Status: Chronic (3) Hypertension Status: Chronic (4) Hyperlipidemia Status: Chronic (5) Bilateral carotid artery stenosis Status: Chronic (6) Mesenteric artery stenosis Status: Chronic Hospital Course: FINAL DIAGNOSIS: 1. Unstable angina, triple-vessel coronary artery disease 2. Hypertension 3. Hyperlipidemia 4. Current tobacco dependence with preoperative FEV1 111% of predicted 5. Bilateral internal carotid artery stenosis 50-79% 6. Basal cell skin cancer 7. Superior mesenteric artery stenosis 8. Postoperative acute blood loss anemia, unexpected PRINCIPAL PROCEDURE: 1. Coronary bypass grafting 3 with the left internal mammary to the left anterior descending artery, reverse saphenous vein graft off the aorta to the high diagonal artery in the posterior ventricular branch of the right coronary artery with endarterectomy of the posterior lateral branch of the RCA with vein patch angioplasty 2. Clip ligation of the left atrial appendage with a #35 mm AtriClip 3. Intraoperative transesophageal echocardiogram HISTORY OF PRESENT ILLNESS: This is a 67-year-old patient of Dr. Zambrano. He presented to [facility] from [facility] a few months ago with complaints of chest pain as well as abdominal pain. At [facility] he had heart catheterization demonstrating multivessel coronary artery disease. He also had computed tomography scan completed demonstrating mesenteric artery ischemia. He was discharged from the hospital with no clear plan as to what would be tackled first. His symptoms continued to worsen. He presented to [facility] in February 2018 with similar complaints of chest pain and abdominal pain along with emesis. At that time he was transferred to [facility] for treatment of his mesenteric artery ischemia. While there he had a cardiac workup including heart catheterization demonstrating left main stenosis 45%, proximal LAD stenosis 90% with mid LAD lesion 85%, 80% stenosis of the ostial first diagonal artery, 65% stenosis to the mid RCA, and 90% stenosis to the posterior lateral branch of the RCA. Transthoracic echocardiogram demonstrated normal LV function with ejection fraction 60-65%, and no significant valvular abnormalities. The patient was referred to Dr. Olmos from cardiothoracic surgery. He was recommended to undergo coronary artery bypass graft surgery. The usual perioperative course was discussed in detail with the patient and his family, all risks and benefits were explained, all questions were answered, and consent was obtained to proceed with surgery. The patient wished to undergo open heart surgery at [facility] as this is a closer location to his home rather than [facility]. HOSPITAL COURSE: The patient was brought to the hospital on 04/20/2018, taken to the preoperative area, prepared in the usual fashion, and subsequently taken to the operating room where Dr. Olmos performed coronary bypass grafting 3 with the left internal mammary to the left anterior descending artery, reverse saphenous vein graft off the aorta to the high diagonal artery in the posterior ventricular branch of the right coronary artery with endarterectomy of the posterior lateral branch of the RCA with vein patch angioplasty, clip ligation of the left atrial appendage with a #35 mm AtriClip, and intraoperative transesophageal echocardiogram. Upon completion of surgery the patient was transferred to the cardiovascular intensive care unit where he was recovered, monitored hemodynamically, and where he progressed to cardiac rehabilitation phase 1. He was extubated, all lines, tubes, and drips were discontinued when appropriate, and transfer orders were placed for 3 S. cardiac stepdown unit, however there was no bed availability and the patient remained in the intensive care unit until discharge as an overflow patient. His oxygen was titrated down , he continued to work with physical and occupational therapy, he was tolerating oral diet, his pain was controlled, and he was ready to be discharged to home with [facility] on postoperative day #4. He received written and verbal instruction regarding his medications, activity restrictions , signs and symptoms requiring physician notification, and follow-up appointments. COMPLICATIONS: The patient experienced postoperative acute blood loss anemia which did not require transfusion. Patient Condition at Discharge: Stable Plan - Discharge Summary Discharge Rx Participant: Yes New Discharge Prescriptions: New Acetaminophen Tab [Tylenol] 650 mg PO Q4HR PRN tab PRN Reason: Fever And/ Or Pain Aspirin 325 mg PO DAILY #30 tab Atorvastatin [Lipitor] 40 mg PO DAILY #30 tab HYDROcodone/APAP 5-325MG [[place] 5-325] 1 each PO Q6HR PRN #20 tab PRN Reason: Moderate Pain Sennosides-Docusate Sodium [Senokot-S] 2 each PO HS PRN tab PRN Reason: Constipation Continue Ondansetron [Zofran] 4 mg PO Q8HR PRN PRN Reason: Nausea Multivitamin [Men's Multi-Vitamin] 1 tab PO DAILY Clopidogrel [Plavix] 75 mg PO DAILY #30 tab Metoprolol Tartrate 25 mg PO BID #60 tablet Pantoprazole Sodium [Protonix] 40 mg PO DAILY #30 tablet. Discontinued Atorvastatin Calcium [Lipitor] 40 mg PO DAILY Nitroglycerin Sl Tabs [Nitrostat] 0.4 mg SUBLINGUAL Q5M PRN PRN Reason: Chest Pain Mupirocin 2% Oint [Bactroban 2% Oint] 1 applic NASAL BID Aspirin [Adult Low Dose Aspirin EC] 324 mg PO DAILY Discharge Medication List Multivitamin [Men's Multi-Vitamin] 1 tab PO DAILY 04/14/18 [History] Ondansetron [Zofran] 4 mg PO Q8HR PRN 04/14/18 [History] Acetaminophen Tab [Tylenol] 650 mg PO Q4HR PRN tab 04/24/18 [Rx] Aspirin 325 mg PO DAILY #30 tab 04/24/18 [Rx] Atorvastatin [Lipitor] 40 mg PO DAILY #30 tab 04/24/18 [Rx] Clopidogrel [Plavix] 75 mg PO DAILY #30 tab 04/24/18 [Rx] HYDROcodone/APAP 5-325MG [[place] 5-325] 1 each PO Q6HR PRN #20 tab 04/24/18 [Rx] Metoprolol Tartrate 25 mg PO BID #60 tablet 04/24/18 [Rx] Pantoprazole Sodium [Protonix] 40 mg PO DAILY #30 tablet. 04/24/18 [Rx] Sennosides-Docusate Sodium [Senokot-S] 2 each PO HS PRN tab 04/24/18 [Rx] Follow up Appointment(s)/Referral(s): Allie Vides MD [STAFF PHYSICIAN] - 05/06/18 2:00 pm Patricia Shah NPC [Nurse Practitioner] - 04/30/18 1:00 pm Sebastien Ochoa MD [STAFF PHYSICIAN] - 2 Weeks (Office will call with appointment) [facility], [NON-STAFF] - Hari Zambrano MD [Primary Care Provider] - 2 Weeks (Call for appointment) Wesley Olmos MD [STAFF PHYSICIAN] - 06/04/18 1:00 pm Ambulatory/Diagnostic Orders: Complete Blood Count w/diff [LAB.AMB] Time Frame: 3 Days, Location: None Selected Comprehensive Metabolic Panel [LAB.AMB] Time Frame: 3 Days, Location: None Selected Patient Instructions/Handouts: Coronary Artery Disease (DC), Low Fat Diet (GEN) , Acute Coronary Syndrome (DC), Coronary Artery Bypass Graft (DC) Activity/Diet/Wound Care/Special Instructions: DISCHARGE INSTRUCTIONS: 1. No driving for 4 weeks, or until physician gives their ok. 2. The patient should sleep in their own bed, no medical bed needed. 3. Stairs are not an issue. If the bedroom is upstairs, it is advised that the patient go up at night and down in the morning for the first week. Go slowly, using handrail and take 1 step at a time. 4. ISHAN hose are to be worn for 30 days or until physician discontinues. 5. Heart hugger is to be worn 100% of the time until physician discontinues.( except when showering) 6. No lifting, pushing, or pulling more than 10 pounds for 12 weeks. The physician will advise of any restriction changes. 7. The patient is expected to continue the prescribed walking program. 8. Continue pain control per as needed orders. 9. Continue with incentive spirometry and splinting/heart hugger until otherwise directed by the physician. 10. Must shower daily using liquid antibacterial soap and a separate white washcloth for each individual incision. 11. Routine sternal incision care. No powders, lotions, ointments on incisions. 12. Please call surgeon/ULTRASONIC CLEANER for temp greater than 101 F or purulent drainage from incisions. 13. Narcotic medications were discussed with the patient, including the potential for misuse, addiction, and abuse. Opiod Start Talking form was reviewed with the patient. 14. All prescriptions given by surgeon for 30 days. Refills need to be filled through perfusionist/primary care physician. 15. A Red armband has been placed on the patient. It should be worn for 30 days post surgery and will be removed by the cardiac surgeons. If an ER visit is necessary, please make sure the number on the Red armband is called. HOME HEALTH SERVICES TO PROVIDE: RN SKILLED HOME CARE SERVICES FOR POST-OP SURGICAL PATIENTS WITH THE FOLLOWING: Coronary Artery Bypass Surgery (CABG), Mitral Valve Replacement/ Repair ( MVR), Aortic Valve Replacement/Repair (AVR) RN TO CONTINUE EDUCATION FROM ``ROAD TO A HEALTH HEART PATIENT EDUCATION MANUAL (GIVEN TO PATIENT IN THE HOSPITAL) MEDICATION RECONCILIATION WITH EDUCATION NEEDED ON FIRST HOME VISIT EMPHASIZE IMPORTANCE OF WEARING BREAST SUPPORT/HEART HUGGER ENCOURAGE USE OF INCENTIVE SPIROMETER 10 X EVERY HOUR WHILE AWAKE ENCOURAGE UTILIZATION OF LOWER EXTREMITY COMPRESSION STOCKINGS/ISHAN HOSE and ELEVATE LEGS ABOVE LEVEL OF HEART WHILE AT REST. ENCOURAGE AMBULATION 3-5x/day INCREASING TOLERATES, WHILE AVOID EXTREMES IN TEMPERATURE FREQUENCY: RN TO OPEN THE PATIENT WITHIN 24 HOURS OF DISCHARGE FROM THE HOSPITAL WITH TELEHEALTH INSTALLED AT [facility], RN TO VISIT 2-3 X A WEEK FOR 4 WEEKS ESTABLISHED BY PATIENT NEEDS. LABORATORY: CBC, CMP TO BE DRAWN ON THE THIRD DAY HOME, 04/27/18, (RAN STAT) FAX RESULTS TO [phone]. TELEHEALTH PARAMETERS: WEIGHT: NOTIFY MD OF WEIGHT GAIN OF 2 LBS IN 24 HOURS OR 5 LBS IN ONE WEEK HR: NOTIFY MD OF HR <55 BPM OR HR>100 BPM BP: NOTIFY MD IF BP <90/55 OR BP>140/100 O2 SAT: NOTIFY MD IF PO2<93% ON ROOM AIR SEND TELEHEALTH REPORT TO THREAD GRINDER AND CARDIOVASCULAR SURGEON THE FIRST WEEK OF CARE AND THEN BI-WEEKLY. PLEASE ADDITIONALLY COMMUNICATE ANY ABNORMALS AND NEW FINDINGS TO THE SURGEONS OFFICE. Discharge Disposition: HOME WITH HOME HEALTH SERVICES
== END 2018-04-24 14:24 | disposition home health service (06) | DRG 228 ==
LOC: 2ORMAIN 05:29 → 2SICU 13:56
PROVIDERS: ADMIT Thoracic Surgery (Cardiothoracic Vascular Surgery); ATTEND Thoracic Surgery (Cardiothoracic Vascular Surgery)
PROC: 021109W Bypass Coronary Artery, Two Arteries from Aorta with Autologous Venous Tissue, Open Approach (ICD-10-PCS; 2018-04-20)
PROC: 06BQ4ZZ Excision of Left Saphenous Vein, Percutaneous Endoscopic Approach (ICD-10-PCS; 2018-04-20)
PROC: 02L70CK Occlusion of Left Atrial Appendage with Extraluminal Device, Open Approach (ICD-10-PCS; 2018-04-20)
PROC: B246ZZ4 Ultrasonography of Right and Left Heart, Transesophageal (ICD-10-PCS; 2018-04-20)
PROC: 5A1221Z Performance of Cardiac Output, Continuous (ICD-10-PCS; 2018-04-20)
PROC: 02100Z9 Bypass Coronary Artery, One Artery from Left Internal Mammary, Open Approach (ICD-10-PCS; principal; 2018-04-20 08:00)
PROC: 02C00ZZ Extirpation of Matter from Coronary Artery, One Artery, Open Approach (ICD-10-PCS; 2018-04-20 08:00)
DX: I25.110 Atherosclerotic heart disease of native coronary artery with unstable angina pectoris (principal); I21.4 Non-ST elevation (NSTEMI) myocardial infarction; D62 Acute posthemorrhagic anemia; J98.11 Atelectasis; I25.83 Coronary atherosclerosis due to lipid rich plaque; Z85.828 Personal history of other malignant neoplasm of skin; D69.6 Thrombocytopenia, unspecified; D72.829 Elevated white blood cell count, unspecified; E78.5 Hyperlipidemia, unspecified; F17.210 Nicotine dependence, cigarettes, uncomplicated; I10 Essential (primary) hypertension; I25.2 Old myocardial infarction; I65.23 Occlusion and stenosis of bilateral carotid arteries; J44.9 Chronic obstructive pulmonary disease, unspecified; Z95.828 Presence of other vascular implants and grafts; Z79.02 Long term (current) use of antithrombotics/antiplatelets; Z79.82 Long term (current) use of aspirin; Z79.899 Other long term (current) drug therapy; Z95.1 Presence of aortocoronary bypass graft; R74.0 Nonspecific elevation of levels of transaminase and lactic acid dehydrogenase [LDH]
CPT/HCPCS: 71045; 80053; 80074; 82330; 82805; 83735; 85025; 85520; 85610; 85730; 86850; 86891; 86900; 86901; 86920; 88304; 93306; 94002; 94640

== ENCOUNTER 2022-08-16 06:21 | Day surgery (SDC) | payer BC, MEDICARE ==
[2022-08-14 12:29] VITALS: BMI 24.0
[~2022-08-16 06:21] MED LIST changes: -ALBUMIN HUMAN 25% 50 ML IV ONE; -ALBUMIN HUMAN 5% 500 ML IVPB ONE; +ALPRAZolam 0.25 MG TAB PO PRN; +ALPRAZolam 0.5 MG TAB PO PRN; -ASPIRIN 325 MG TAB PO ONE; +ASPIRIN 325 MG TAB PO PRN; -ATORVASTATIN 10 MG TAB PO ONE; -CALCIUM CHLORIDE 100 MG/ML 10 ML SYRINGE IV ONE; -CHLORHEXIDINE GLUCONATE 15 ML CUP MUCOUS MEM ONE; -CLEVIDIPINE BUTYRATE 25 MG in EMPTY BAG 1 BAG IV ONE; -DEXTROSE 5% IN WATER 1,000 ML with POTASSIUM CHLORIDE 110 MEQ, MAGNESIUM SULFATE 16 MEQ... IV ONE; -DEXTROSE 5% IN WATER 1,000 ML with POTASSIUM CHLORIDE 25 MEQ, SODIUM CHLORIDE 2.5MEQ/ML... IRRIGATION ONE; -HEPARIN SODIUM 1,000 UN/ML (10ML VL) IV ONE; +HEPARIN SODIUM,PORCINE 10,000 UNIT in SODIUM CHLORIDE 0.9% 1,000 ML IRRIGATION PRN; +HEPARIN SODIUM,PORCINE 2,500 UNIT in SODIUM CHLORIDE 0.9% 250 ML IRRIGATION PRN; -HEPARIN SODIUM,PORCINE 5,000 UNIT in SODIUM CHLORIDE 0.9% 500 ML 500 ML IV ONE; -INSULIN REGULAR 100 UNIT in SODIUM CHLORIDE 0.9% 100 ML IV ONE; -LACTATED RINGERS 1,000 ML IV ONE; -MAGNESIUM SULFATE MG 500 MG/ML IV ONE; -MANNITOL 25% 12.5 GM/50 ML VIAL IV ONE; -METOPROLOL TARTRATE 12.5 MG TAB PO ONE; -NITROGLYCERIN SL TABS 0.4 MG TAB SUBLINGUAL ONE; -NITROGLYCERIN-D5W PMX 25 MG/250 ML BTL IV ONE; -NITROGLYCERIN-D5W PMX 50 MG in DEXTROSE/WATER 1 250ML.BAG IV ONE; -NOREPINEPHRINE 4 MG in SODIUM CHLORIDE 0.9% 250 ML IV ONE; -PAPAVERINE 360 MG in SODIUM CHLORIDE 0.9% 90 ML IV ONE; -PHENYLEPHRINE 40 MG in SODIUM CHLORIDE 0.9% 250 ML IV ONE; -PHENYLEPHRINE-0.9% NACL SYG 1 MG/10 ML SYRINGE IV ONE; -PROPOFOL 1,000 MG/100 ML VIAL IV ONE; -PROTAMINE SULFATE 10 MG/ML 25 ML VIAL IV ONE; -PROTAMINE SULFATE 250 MG in EMPTY BAG 1 BAG IV ONE; -SODIUM BICARB 8.4% 50 ML SYR (1 MEQ/ML) IV ONE; -SODIUM CHLORIDE 0.9% 1,000 ML IV ONE; +SODIUM CHLORIDE 0.9% 1,000 ML in EMPTY BAG 1 BAG IV ONE; -TRANEXAMIC ACID 2,000 MG in SODIUM CHLORIDE 0.9% 180 ML IV ONE; +ZOLPIDEM 5 MG TAB PO PRN; -ceFAZolin 2,000 MG in SODIUM CHLORIDE 0.9% 30 ML IVPB ONE
[2022-08-16] MEDS ORDERED: SODIUM CHLORIDE 0.9% 1,000 ML IV ONE (06:39)
[2022-08-16] MEDS ORDERED: MIDAZOLAM 2 MG/2 ML VIAL IV ONE (08:18)
[2022-08-16] MEDS ORDERED: LIDOCAINE 1% INJ 10MG/ML (20 ML MDV) SQ ONE (08:18)
[2022-08-16] MEDS ORDERED: fentaNYL (PF) 50 MCG/ML 2 ML AMP IV ONE (08:18)
[2022-08-16] MEDS: HEPARIN SODIUM 1,000 UN/ML (10ML VL) IV ONE ×2 (08:28→09:05)
[2022-08-16] MEDS ORDERED: CLOPIDOGREL 75 MG TAB PO ONE (08:59)
[2022-08-16] MEDS ORDERED: IOPAMIDOL-370 100ML BTL INJ ONE ×2 (09:24→09:32)
--- NOTE | 2022-08-16 10:35 | IR ---
EXAMINATION TYPE: IR stent intravas non coronary DATE OF EXAM: 08/16/2022 COMPARISON: NONE HISTORY: Fluoroscopy time. Fluoroscopy was provided to the referring clinician.
[2022-08-16] MEDS ORDERED: NALOXONE 0.4 MG/ML 1 ML VIAL IVP PRN (10:49)
[2022-08-16] MEDS ORDERED: ACETAMINOPHEN TAB 325 MG TAB PO PRN (11:06)
[2022-08-16] MEDS ORDERED: SENNOSIDES-DOCUSATE SODIUM 1 EACH TAB PO PRN (11:06)
[2022-08-16] MEDS ORDERED: SODIUM CHLORIDE 0.9% 1,000 ML IV SCH (11:15)
[2022-08-16] MEDS: METOPROLOL TARTRATE 25 MG TAB PO SCH (20:07)
--- NOTE | 2022-08-16 22:23 | P.PCN ---
Description of Procedure: PROCEDURES PERFORMED: Abdominal angiography with left lower extremity runoff, PIN TICKET MACHINE OPERATOR and stenting of the left SFA with overlapping 6.0 x 29mm Omnilink, 6.0 x 100mm Zilver and 5.0 x 140mm Zilver INDICATION: Latoya class 3 claudication CONSENT:I have discussed the risks, benefits and alternative therapies for the above-mentioned procedure and for both sedation/analgesia as well as necessary blood product administration, if indicated, as they pertain to this patient. The patient has indicated understanding and acceptance of the risks and procedures discussed. PROCEDURE: After the risks, benefits and alternatives of the above mentioned procedure explained in detail with the patient, informed consent was obtained. Patient was taken to the catheterization lab and prepped and draped in usual fashion. 1% lidocaine was used to anesthetize the right femoral area. A 6- Liberian sheath was placed in the right femoral artery using modified Seldinger technique. A 5-Liberian pigtail catheter was inserted to the abdominal aorta and DSA imaging was obtained. Patient tolerated the diagnostic portion well. Next, the decision was made to perform intervention of the left SFA. IV heparin was given. Using a rim catheter and a glide wire and a amplatz wire, a 6Fr destination sheath was advanced into the left common femoral. A 0.035 stiff glide wire with a glide catheter was used to cross the more proximal lesions up to the PHOTO TUBE ASSEMBLER. Unable to pass the wire with a 0.014 BMW, whisper wire and therefore a 0.018 Astato wire was used to cross mid to distal SFA lesion. Balloon angioplasty was performed with a 3.0 balloon and then a 5.0 balloon. There was extensive dissection and therefore this was covered with overlapping 5.0 x 140 mm Zilver, 6.0 x 100mm Zilver and 6.0 x 29mm Omnilink stents. Final angiograms were performed. Pre intervention there was 100% stenosis with no antegrade flow. Post intervention there was 0% stenosis and uninhibited antegrade flow. A right femoral angiogram was performed and anatomoy was not suitable for closure and therefore left in place for manual pull. The patient tolerated the procedure well. Patient was transported back to the post catheterization holding area in stable condition. Conscious Sedation: Patient was monitored under the direct supervision of vision of myself for conscious sedation using Versed and fentanyl for a total duration of 44 minutes HEMODYNAMICS: Ao: 133/71 Abdominal aorta: The abdominal aorta has mild calcifcation. Renal arteries were not imaged. There is no significant dissection or aneurysm. There is no significant stenosis. Right lower extremity: Right common iliac artery: There is no significant stenosis. Right external iliac artery: There is no significant stenosis. Right internal iliac artery: There is no significant stenosis. Right common femoral artery: There is no significant stenosis. Right profunda: Not imaged Right SFA: Not imaged Right popliteal artery: Not imaged Right tibioperoneal trunk: Not imaged Right anterior tibial artery: Not imaged Right porterior tibial artery: Not imaged Right peroneal artery: Not imaged Left lower extremity: Left common iliac artery: There is no significant stenosis. Left external iliac artery: There is no significant stenosis. Left internal iliac artery: There is no significant stenosis. Left common femoral artery: There is no significant stenosis. Left profunda: There is no significant stenosis. Left SFA: There is diffuse proximal to distal left SFA 70-100% stenosis of the entire length. Left popliteal artery: There is mild 20-30% stenosis. Left tibioperoneal trunk: There is no significant stenosis. Left anterior tibial artery: There is no significant stenosis. Left porterior tibial artery: There is no significant stenosis. Left peroneal artery: There is no significant stenosis. FINAL IMPRESSION: 1. Peripheral arterial disease as described above including 100% left SFA stenosis and otherwise mild disease. 2. S/p PIN TICKET MACHINE OPERATOR and stenting of the left SFA with overlapping 6.0 x 29mm Omnilink, 6.0 x 100mm Zilver and 5.0 x 140mm Zilver PLAN: 1. Aggressive risk factor modification per most recent ACC/AHA guidelines. 2. Continue dual antiplatelets with aspirin and Plavix for 6 months.
[2022-08-17 08:18] LABS: Basophils % (A) 0 %; Eosinophils # (A) 0.3 k/uL (0-0.7); Eosinophils % (A) 2 %; HCT 40.7 % (39.0-53.0); HGB 13.8 gm/dL (13.0-17.5); Lymphocytes # (A) 1.5 k/uL (1.0-4.8); Lymphocytes % (A) 12 %; MCH 31.8 pg (25.0-35.0); MCHC 33.8 g/dL (31.0-37.0); MCV 94.1 fL (80.0-100.0); Mean Platelet Volume 9.6; Monocytes # (A) 0.8 k/uL (0-1.0); Monocytes % (A) 7 %; Neutrophils # (A) 9.2 k/uL (1.3-7.7); Neutrophils % (A) 76 %; Platelet Count 154 k/uL (150-450); RBC 4.33 m/uL (4.30-5.90); WBC 12.1 k/uL (3.8-10.6)
[2022-08-17 08:23] LABS: African American GFR (CKD) >90 (>60 ml/min/1.73 sqM); Anion Gap 7 mmol/L; Blood Urea Nitrogen 17 mg/dL (9-20); Calcium 8.6 mg/dL (8.4-10.2); Carbon Dioxide 19 mmol/L (22-30); Chloride 112 mmol/L (98-107); Glucose 99 mg/dL (74-99); Non-African American GFR(CKD) 89 (>60 ml/min/1.73 sqM); Potassium 4.1 mmol/L (3.5-5.1); Sodium 138 mmol/L (137-145)
[2022-08-17 08:40] VITALS: BP 132/67; PULSE 62; RESP 16; TEMP 98.4
[2022-08-17] MEDS ORDERED: CLOPIDOGREL 75 MG TAB PO SCH (09:00)
[2022-08-17] MEDS ORDERED: ASPIRIN 81 MG PO SCH (09:00)
[2022-08-17] MEDS: METOPROLOL TARTRATE 25 MG TAB PO SCH (09:17)
--- NOTE | 2022-08-17 10:52 | P.PN ---
Subjective Progress Note Date: 08/17/22 Patient seen today resting comfortably in bed in no signs of acute distress. He has been up walking around the room without complications. Pedal pulses are noted. Groin site is soft with no hematoma or ecchymosis. He is on Lipitor aspirin Plavix and metoprolol. Continue with cardiac medications will follow-up with Dr. Mulligan in the office. Patient is cleared for discharge. Objective - Vital Signs Vital signs: Vital Signs Temp 98.4 F 08/17/22 07:35 Pulse 62 08/17/22 07:35 Resp 16 08/17/22 07:35 BP 132/67 08/17/22 07:35 Pulse Ox 92 L 08/17/22 07:35 FiO2 Intake & Output 08/16/22 08/17/22 08/17/22 18:59 06:59 18:59 Intake Total 780 500 Output Total 700 Balance 80 500 Weight 63.3 kg Intake: IV 300 Oral 480 500 Output: Urine 700 Other: Voiding Method Toilet Urinal - Exam PHYSICAL EXAM: VITAL SIGNS: Reviewed. GENERAL: Well-developed in no acute distress. HEENT: Head is normocephalic. Pupils are equal, round. Sclerae anicteric. Mucous membranes of the mouth are moist. NECK: Supple. No JVD or thyromegaly RESPIRATORY: Respirations even and unlabored. Lungs diminished to auscultation bilaterally. CARDIO: Regular rate and rhythm. S1 and S2 heard. No murmur or gallops. EXTREMITIES: Normal range of motion. No clubbing or cyanosis. Peripheral pulses intact. Negative for bilateral lower extremity edema NEURO: Orientated to person, time, mood is appropriate - Labs CBC & Chem 7: 08/17/22 07:11 08/17/22 07:11 Labs: Abnormal Lab Results - Last 24 Hours (Table) 08/17/22 08/17/22 Range/Units 07:11 07:11 WBC 12.1 H (3.8-10.6) k/uL Neutrophils # 9.2 H (1.3-7.7) k/uL Chloride 112 H (98-107) mmol/L Carbon Dioxide 19 L (22-30) mmol/L Assessment and Plan Assessment: Peripheral artery disease status post INCINERATOR PLANT GENERAL SUPERVISOR and stenting of the left SFA Plan: Continue with all current cardiac medications. Continue with dual antiplatelet therapy of Plavix and aspirin Follow-up with Dr. Mulligan in the office She was cleared for discharge The above impression and plan of care have been discussed and directed by the signing physician. Florence Elizalde, nurse practitioner, acting as scribe for signing physician.
--- NOTE | 2022-08-17 10:57 | P.DS ---
Providers Date of admission: 08/17/2022 Expected date of discharge: 08/17/22 Attending physician: Javad Frye DO Primary care physician: Stated None Hospital Course: Patient had Abdominal angiography with left lower extremity runoff, NETWORK SERVICES PROJECT MANAGER and stenting of the left SFA with Dr. Frye. Patient seen today resting comfortably in bed in no signs of acute distress. He has been up walking around the room without complications. Pedal pulses are noted. Groin site is soft with no hematoma or ecchymosis. He is on Lipitor aspirin Plavix and metoprolol. Continue with cardiac medications will follow-up with Dr. Mulligan in the office. Patient is cleared for discharge. Assessment: PHYSICAL EXAM: VITAL SIGNS: Reviewed. GENERAL: Well-developed in no acute distress. HEENT: Head is normocephalic. Pupils are equal, round. Sclerae anicteric. Mucous membranes of the mouth are moist. NECK: Supple. No JVD or thyromegaly RESPIRATORY: Respirations even and unlabored. Lungs diminished to auscultation bilaterally. CARDIO: Regular rate and rhythm. S1 and S2 heard. No murmur or gallops. EXTREMITIES: Normal range of motion. No clubbing or cyanosis. Peripheral pulses intact. Negative for bilateral lower extremity edema NEURO: Orientated to person, time, mood is appropriate Procedures: Abdominal angiography with left lower extremity runoff, NETWORK SERVICES PROJECT MANAGER and stenting of the left SFA with overlapping 6.0 x 29mm Omnilink, 6.0 x 100mm Zilver and 5.0 x 140mm Zilver Patient Condition at Discharge: Good Plan - Discharge Summary Discharge Rx Participant: No New Discharge Prescriptions: New Clopidogrel [Plavix] 75 mg PO DAILY #90 tablet No Action Acetaminophen Tab [Tylenol] 650 mg PO Q4HR PRN tab PRN Reason: Fever And/ Or Pain Atorvastatin [Lipitor] 40 mg PO DAILY #30 tab Sennosides-Docusate Sodium [Senokot-S] 2 each PO HS PRN tab PRN Reason: Constipation Metoprolol Tartrate 25 mg PO BID #60 tablet Aspirin 81 mg PO DAILY Discharge Medication List Acetaminophen Tab [Tylenol] 650 mg PO Q4HR PRN tab 04/24/18 [Rx] Atorvastatin [Lipitor] 40 mg PO DAILY #30 tab 04/24/18 [Rx] Metoprolol Tartrate 25 mg PO BID #60 tablet 04/24/18 [Rx] Sennosides-Docusate Sodium [Senokot-S] 2 each PO HS PRN tab 04/24/18 [Rx] Aspirin 81 mg PO DAILY 08/16/22 [History] Clopidogrel [Plavix] 75 mg PO DAILY #90 tablet 08/16/22 [Rx] Follow up Appointment(s)/Referral(s): Odalys Mulligan MD [STAFF PHYSICIAN] - 08/26/22 4:15 pm (follow up appointment is on August 26 at 4:15 pm ) Patient Instructions/Handouts: Moderate Sedation (DC), Peripheral Vascular Angioplasty (DC), Peripheral Vascular Stent Placement (DC) Activity/Diet/Wound Care/Special Instructions: See Activity Restriction Instructions
[2022-08-17] MEDS ORDERED: ATORVASTATIN 40 MG TAB PO SCH (21:00)
== END 2022-08-17 12:05 | disposition home or self-care (01) ==
LOC: CATHCVL 06:21 → 6NMEDSUR 09:34 → CATHCVL 08-17 12:05
PROVIDERS: ATTEND Internal Medicine
DX: I70.212 Atherosclerosis of native arteries of extremities with intermittent claudication, left leg (principal); Z79.02 Long term (current) use of antithrombotics/antiplatelets
CPT/HCPCS: 37226; 75625; 75716; 80048; 85025; C1769 ×8; C1894 ×2; C1876; C1725 ×2; C1874 ×2; J2250; J2001; J3010; J1644; Q9967